=== PATIENT | female | born 1940 | race Caucasian/White ===

== ENCOUNTER 2019-01-18 10:56 | Inpatient (IN) | payer MEDICARE ==
[2019-01-18] MEDS ORDERED: Ondansetron PF 4 MG/2 ML Vial ONE (11:45)
[2019-01-18] MEDS ORDERED: Pantoprazole 40 MG VIAL ONE (11:45)
[2019-01-18 12:09] LABS: #Basophils 0.1 thou/uL (0.0-0.2); #Eosinphils 0.2 thou/uL (0.0-0.7); #Lymphocytes 1.2 thou/uL (1.20-3.40); #Monocytes 0.4 thou/uL (0.11-0.59); #Neutrophils 6.7 thou/uL (1.40-6.50); %Basophils 0.9 % (0.0-1.0); %Eosinophils 2.1 % (0.0-10.0); %Lymphocytes 13.5 % (21.0-51.0); %Monocytes 4.7 % (0.0-10.0); %Neutrophils 78.9 % (42.0-75.0); Mean Corpuscular HGB CONC 32.9 g/dL (32.0-36.0); Mean Corpuscular Volume 94.1 fL (78.0-98.0); Mean Platelet Volume 8.2 fL (7.4-10.4); Platelet Count 328 thou/uL (130-400); RBC Distribution Width 14.3 % (11.5-14.5); Red Blood Cell (RBC) Count 2.57 mill/uL (4.20-5.40); White Blood Cell (WBC) Count 8.6 thou/uL (4.8-10.8)
[2019-01-18 12:26] LABS: ALT (SGPT) 12 U/L (8-55); AST (SGOT) 12 U/L (5-34); Albumin 4.3 g/dL (3.4-4.8); Alkaline Phosphatase 102 U/L (40-150); Anion Gap 15 mmol/L (10-20); BUN (Urea Nitrogen) 48 mg/dL (9.8-20.1); Bilirubin, Total 0.4 mg/dL (0.2-1.2); Calc. Creatinine Clearance 0 mL/min (70-130); Calcium 11.2 mg/dL (7.8-10.44); Carbon Dioxide 24 mmol/L (23-31); Chloride 103 mmol/L (98-107); Estimated GFR-MDRD 29; Globulin 2.7 g/dL (2.4-3.5); Glucose 154 mg/dL (83-110); Potassium 4.3 mmol/L (3.5-5.1); Sodium 138 mmol/L (136-145)
--- NOTE | 2019-01-18 14:11 | CT ---
CT ABDOMEN AND PELVIS WITHOUT CONTRAST: HISTORY: Pain. COMPARISON: None. FINDINGS: There is mild scarring in the lung bases. No pericardial effusion. Gallbladder sludge. Aortic cont our is nonaneurysmal. Moderate diverticular disease of the sigmoid colon without active current inflammation. The kidneys are small. There is no nephroureterolithiasis or hydroureteronephrosis. No secondary ev idence of a recently passed stone. Mild pancreatic atrophy. Noncontrast evaluation of the spleen and liver are unremarkable. Moderate facet arthropathy, lower lumbar spine. IMPRESSION: 1. No nephroureterolithiasis or hydroureteronephrosis. No secondary evidence of a recently passed s tone. 2. No acute inflammatory process within the abdomen or pelvis. POS: CET
[2019-01-18] MEDS ORDERED: Bisacodyl 10 MG SUPP PR PRN (15:24)
[2019-01-18] MEDS ORDERED: Calcium Carbonate 500 MG ChewTAB PO PRN (15:24)
[2019-01-18] MEDS ORDERED: Acetaminophen 325 MG TAB PO PRN (15:24)
[2019-01-18] MEDS ORDERED: Dextrose 5 % And 0.9 % NaCl 1,000 ML IV SCH (16:00)
--- NOTE | 2019-01-18 16:31 | HP ---
CHIEF COMPLAINT: Abdominal pain with dark stool. HISTORY OF PRESENT ILLNESS: The patient is an 78-year-old female, with chronic atrial fibrillation, on anticoagulation with Xarelto, presented to the emergency room with above complaints. Over the last 3 days, the patient has nausea with intermittent vomiting. She also has generalized abdominal discomfort, which is cramping in nature. At times, the pain gets constant. Since last 2 days, she developed dark tarry stool. She had small amount of reddish tinge to her vomitus. She is unsure whether it was blood. No weight loss reported. She had EGD, colonoscopy more than 5 years ago at [facility]. She denies any NSAID use. No fever or chills reported. No chest pain , shortness of breath, palpitations, or syncope reported. She had mild lightheadedness. PAST MEDICAL HISTORY: 1. Chronic atrial fibrillation, on anticoagulation. 2. History of peptic ulcer disease. 3. Left breast cancer, status post mastectomy. 4. Hypothyroidism. 5. Former smoker. 6. Chronic systolic and diastolic heart failure with recent hospitalization for volume overload at [facility]. EF recently was 45-50% 7. Moderate Mitral regurgitation. PAST SURGICAL HISTORY: 1. EGD, colonoscopy. 2. Cardiac valve repair, details unavailable. 3. Left hip surgery. ALLERGIES: THE PATIENT IS ALLERGIC TO VALIUM. CURRENT HOME MEDICATIONS: Family to bring accurate list of medications. She is able to name some of them that include; 1. Amiodarone. 2. Xarelto. 3. Levothyroxine. 4. Lasix. 5. Aspirin. 6. Isosorbide mononitrate. 7. Losartan. 8. Metoprolol tartrate. 9. Protonix. 10. Thiamine. 11. Effexor. 12. Zinc. SOCIAL HISTORY: The patient is a former smoker. Denies current use of alcohol or drug use. She lives in [place]. She is retired and has good family support. She makes her own decision with the help of her family. She is full code. FAMILY HISTORY: Father with hypertension and malignancy. Mother had heart disease and hypertension. Diabetes and hypertension run in her family. REVIEW OF SYSTEMS: All other review of systems was reviewed and was found negative. PHYSICAL EXAMINATION: VITAL SIGNS: Temperature 98.1, respirations of 18, pulse rate of 120, blood pressure 123/82, with O2 saturations 99% on room air. GENERAL: An 78-year-old female, in no apparent distress. Continues to have intermittent abdominal cramping. HEENT: Head, atraumatic and normocephalic. Sclerae are anicteric. Moist mucous membranes. No oral lesion. Conjunctival pallor noted. NECK: Supple. No JVD appreciated. No carotid bruit. LUNGS: Clear to auscultation bilaterally. No wheezing, rales, or rhonchi. HEART: S1 and S2 present, tachycardic. No heaves or pulsation. ABDOMEN: Soft. Bowel sounds present. Mild generalized tenderness. No rebound or guarding. No costovertebral angle tenderness. PSYCHIATRIC: Alert, awake, and oriented x3. NEUROLOGIC: Grossly nonfocal. Moves all 4 extremities. SKIN: Warm and dry. LYMPH NODES: No palpable lymph nodes in the neck. PERIPHERAL VASCULAR: Radial pulse is palpable bilaterally. MUSCULOSKELETAL: No joint swelling or tenderness. LABORATORY FINDINGS: WBC 8.6, with hemoglobin 8.0, hematocrit 24.2, platelets 328. Chemistry showed sodium 138, potassium 4.3, chloride 103, bicarb 24, BUN 48, creatinine 1.7, glucose of 154, calcium 11.2. CT scan of the abdomen and pelvis by my review was negative for acute findings. EKG by my review showed sinus tachycardia with left axis deviation and left bundle-branch block. IMPRESSION: 1. Acute gastrointestinal bleeding. 2. Acute blood loss anemia. 3. Chronic atrial fibrillation, on anticoagulation. 4. Acute kidney injury, on chronic kidney disease, stage 3. 5. Chronic systolic and diastolic heart failure with recent hospitalization at [facility]. 6. History of peptic ulcer disease. 7. History of breast cancer. 8. Coronary artery disease. 9. Hypothyroidism. 10. Hypertension. PLAN: The patient will be monitored on the telemetry unit. Continue Protonix drip. Gastroenterology consultation. N.p.o. except for ice chips. We will monitor closely for volume overload. Gentle IV hydration. Monitor hemoglobin and hematocrit closely. Check iron profile. Plan of care was discussed with the patient in detail. She stated understanding. Job ID: [id number] [facility]
[2019-01-18 17:56] LABS: Iron 93 ug/dL (50-170); Iron Binding Capacity, Total 411 mcg/dL (265-497)
[2019-01-18 18:18] VITALS: BMI 27.8
[2019-01-18] MEDS ORDERED: Prevnar 13-Val Conj/PF 0.5 ML SYRINGE IM ONE (18:45)
[2019-01-18 19:36] LABS: Hemoglobin 7.8 g/dL (12.0-16.0)
[2019-01-18] MEDS ORDERED: Metoprolol Tartrate 25 MG TAB PO SCH ×2 (20:00→22:00)
[2019-01-18] MEDS: Dextrose 5 % And 0.9 % NaCl 1,000 ML IV SCH (20:30)
[2019-01-18 22:29] LABS: Hemoglobin 8.1 g/dL (12.0-16.0)
[2019-01-18] MEDS: Metoprolol Tartrate 25 MG TAB PO SCH (22:42)
--- NOTE | 2019-01-18 22:42 | CON ---
DATE OF CONSULTATION: REASON FOR CONSULT: Reported melena and hematemesis. HISTORY OF PRESENT ILLNESS: Ms. Snowden is an 78-year-old female who receives her care predominantly in [place] where she had been hospitalized. She reports 3 times and most recently a week ago in [place]. The two times before that were in [facility]. She states these for her heart failure. She presented to the Emergency Room here as she was still feeling bad and did not find much had been done for. She had an episode of hematemesis. The day before yesterday, it was maroon; however, she is not sure if that was tomatoes or not, then she maybe had some coffee-grounds emesis, had some black stools. She states she never had any red stool or maroon stool. Her last episode of emesis was yesterday and her last bowel movement was this morning when she came to the hospital. She has had no bowel movements or emesis here. She notes that she had been having stomach pain in the mid abdomen for several weeks, but when she went to the outside hospital, she was told the problem was fluid around her heart. She does note that she may have had a CAT scan, they told her stomach was okay. She was taking Aleve quite a bit, but a few months ago stopped that as her kidney doctor told, it was bad for her kidneys. She was placed on some reflux medicine. She does not know the name. When she was at the other hospital, she took those for about 3 days, then she did not feel well, she went ahead and came in. She does have a history of atrial fibrillation for which she has been on Xarelto and she has been off that for today and yesterday. In the emergency room, she was tachycardic, received a liter of fluid. She had a pulse of 120, blood pressure 123/82. She was given Protonix IV. She has been admitted to the floor now. She denies any dysphagia, odynophagia, hematochezia. She reports she had a colonoscopy 5 years ago, which was notable for few polyps. She notes she had a remote history of ulcers about 5-7 years ago in [place]. She also notes that she was found to have some type of spot on her pancreas and is supposed to have a biopsy by plater printed circuit board panels and this will be done in [place] area in January on that. She does suffer with shortness of breath and dyspnea on exertion. She denies any palpitations and she is not aware that her heart is going fast. She denies any fever or chills, dysuria, frequency, urgency, cough. She denies rashes, myalgias, or arthralgias. She has overt spontaneous bleeds in the past. PAST MEDICAL HISTORY: Remote history of gastric ulcer, history of left breast cancer, mastectomy in 2000, AFib, hypothyroidism, hypertension. She reports she is diabetic and does not take shots. PAST SURGICAL HISTORY: Notable for the breast resection and a left hip replacement, open heart surgery for a valve and previous hysterectomy. SOCIAL HISTORY: The patient used to smoke cigarettes, but not now. She does not drink. She does not use drugs. She is living with her son since she has been in the hospital, her son lives here. ALLERGIES: VALIUM. MEDICATIONS: 1. Lasix. 2. Levothyroxine. 3. Xarelto. 4. Amlodipine. 5. Aspirin. 6. Isosorbide mononitrate. 7. Linzess. 8. Losartan. 9. Metoprolol. 10. Pantoprazole. 11. Thiamine. 12. Venlafaxine. 13. Zinc sulfate. PRESENT MEDICATIONS: 1. Protonix drip every 8 hours. 2. D5 50. 3. Calcium. As far as medicines at home, she states she does not have any of those today and . PHYSICAL EXAMINATION: VITAL SIGNS: Presently, pulse 124, sinus blood pressure 120/76, temperature is 98.1. GENERAL: She is resting comfortably, but somewhat pale. LUNGS: Clear. HEART: Sinus tachycardia with occasional PVC. HEENT: Conjunctiva is pale. Sclera is clear. There is no JVD. ABDOMEN: Soft and nontender. There is no rebound. There is no guarding. EXTREMITIES: No clubbing, cyanosis, or edema. If. LABORATORY DATA: 1. Hemoglobin is 8 at 11:56 a.m. She received 1 unit of blood at this time. Her hemoglobin was 9.1 on 03/29/2017. She is not sure what her recent blood counts have been. White count is 8.6, platelet count is 238. Sodium 138, potassium 4.3, BUN and creatinine are 48 and 1.7, calcium is 11.2, glucose is 154. Bilirubin is 0.4. AST and ALT are 12 and 12, alkaline phosphatase 102. ASSESSMENT: 1. Sinus tachycardia, likely related to gastrointestinal bleed, possibly related to her not receiving her beta esther medicines today. 2. No signs of hypertension. 3. History of some possible melena recently and hematemesis, had coffee-grounds emesis couple days ago and none today. She has received 1 unit of blood for hemoglobin of 8. 4. Hypercalcemia. It is unclear if this is related to dehydration or possibly underlying malignancy. She has a remote history of breast cancer. 5. Elevated BUN and creatinine, so this may be related to hemeprotein being reabsorbed in the small bowel. Some of it may be a prerenal state. RECOMMENDATIONS: Agree with IV Protonix. Plan for endoscopy tomorrow. We will resuscitate further. We will defer to primary service whether to start her back on her medicines, but I think could be acceptable, if they do so and may help her tachycardia somewhat. Serial H and H will be recommended. If there are any signs of acute bleeding, she will need to be further transfused and resuscitated. I have talked her about endoscopy tomorrow and she is agreeable that. Job ID: [id number]
[2019-01-19] MEDS: Pantoprazole 80 MG in Sodium Chloride 0.9% 100 ML IVP SCH ×2 (00:24→12:02)
[2019-01-19 05:31] LABS: #Basophils 0.1 thou/uL (0.0-0.2); #Eosinphils 0.3 thou/uL (0.0-0.7); #Lymphocytes 1.7 thou/uL (1.20-3.40); #Monocytes 0.5 thou/uL (0.11-0.59); #Neutrophils 4.4 thou/uL (1.40-6.50); %Basophils 0.8 % (0.0-1.0); %Eosinophils 3.9 % (0.0-10.0); %Lymphocytes 24.4 % (21.0-51.0); %Monocytes 7.6 % (0.0-10.0); %Neutrophils 63.3 % (42.0-75.0); Hemoglobin 7.3 g/dL (12.0-16.0); Mean Corpuscular Hemoglobin 32.9 pg (27.0-31.0); Mean Corpuscular Volume 96.7 fL (78.0-98.0); Mean Platelet Volume 8.2 fL (7.4-10.4); Platelet Count 239 thou/uL (130-400); RBC Distribution Width 14.7 % (11.5-14.5); Red Blood Cell (RBC) Count 2.23 mill/uL (4.20-5.40); White Blood Cell (WBC) Count 6.9 thou/uL (4.8-10.8)
[2019-01-19] MEDS: Metoprolol Tartrate 25 MG TAB PO SCH ×3 (05:38→21:53)
[2019-01-19 05:50] LABS: ALT (SGPT) 10 U/L (8-55); AST (SGOT) 11 U/L (5-34); Albumin 3.5 g/dL (3.4-4.8); Alkaline Phosphatase 78 U/L (40-150); Anion Gap 12 mmol/L (10-20); BUN (Urea Nitrogen) 39 mg/dL (9.8-20.1); Bilirubin, Total 0.5 mg/dL (0.2-1.2); Calc. Creatinine Clearance 45 mL/min (70-130); Calcium 9.9 mg/dL (7.8-10.44); Carbon Dioxide 21 mmol/L (23-31); Chloride 109 mmol/L (98-107); Estimated GFR-MDRD 36; Globulin 2.5 g/dL (2.4-3.5); Glucose 129 mg/dL (83-110); Magnesium 2.2 mg/dL (1.6-2.6); Sodium 138 mmol/L (136-145)
[2019-01-19] MEDS ORDERED: Metoprolol Tartrate 25 MG TAB PO SCH (09:00)
[2019-01-19] MEDS: Amiodarone 200 MG TAB PO SCH (12:01)
[2019-01-19] MEDS: Venlafaxine HCl XR 150 MG CAP PO SCH (12:01)
[2019-01-19] MEDS: Zinc Sulfate 220 MG CAP PO SCH (12:02)
[2019-01-19] MEDS: Dextrose 5 % And 0.9 % NaCl 1,000 ML IV SCH (12:02)
[2019-01-19] MEDS: Thiamine 100 MG TAB PO SCH (12:02)
--- NOTE | 2019-01-19 13:53 | OP ---
DATE OF PROCEDURE: 01/19/2019 PROCEDURES PERFORMED: Esophagogastroduodenoscopy. PREPROCEDURE DIAGNOSES: 1. History of melena, anemia, prior history of ulcers. 2. She had been on chronic anticoagulation until 3 days ago with Xarelto. POSTPROCEDURE DIAGNOSES: Normal esophagus, normal stomach, normal duodenum. No evidence of Nadine-Gramajo tear. No bleeding sites identified. No evidence of Dieulafoy like lesions in the stomach. No ulcers or erosions. RECOMMENDATIONS: In light of the history of the melena and coffee-ground like stools and her significant anemia, we will proceed with colonoscopy tomorrow. ANESTHESIA: TIVA. PROCEDURE IN DETAIL: The patient was informed of the risks, benefits, and possible complications of endoscopy including perforation, reaction to medication, and aspiration, and informed consent was obtained. The patient was brought to endoscopy suite, where she was sedated in gradual fashion. Once she was comfortable, a bite block placed inside the orifices. The endoscope was advanced through the esophagus, stomach, and second and third portion of the duodenum and slowly removed. There was good visualization of the mucosa. The esophagus was normal. No evidence of varices or Nadine-Gramajo tear, or esophagitis. Retroflexed views revealed normal GE junction from below. There was no evidence of ulcers in the stomach incisura. Close evaluation of mucosa showed no evidence of AVMs or Dieulafoy like lesions. The duodenum was entered and found to be normal to the second and third portions. No evidence of ulcers or erosions. The scope was removed. The patient tolerated the procedure well. There were no complications. Job ID: [id number]
[2019-01-19] MEDS ORDERED: Lidocaine 1% PF 5 ML VIAL ONE (16:32)
[2019-01-19] MEDS ORDERED: PROPOFOL 200 MG/20 ML VIAL ONE (16:32)
[2019-01-19] MEDS ORDERED: PHENYLEPHRINE-NS 100 MCG/ML 10 ML SYRINGE ONE (16:32)
--- NOTE | 2019-01-19 17:58 | PRG ---
DATE OF SERVICE: 01/19/2019 SUBJECTIVE: An 78-year-old female with chronic atrial fibrillation on anticoagulation, presented yesterday with gastrointestinal bleeding. She did not have any new episodes of melena or hematochezia. No nausea or vomiting reported. She underwent EGD earlier today that was essentially normal. No abdominal pain, chest pain, or lightheadedness reported. REVIEW OF SYSTEMS: As discussed above. CURRENT MEDICATIONS: Reviewed. OBJECTIVE: VITAL SIGNS: Temperature 97.9, respiration of 16, pulse rate of 80, blood pressure 125/62, O2 saturation 96% on room air. Intake of 865, output 300. Telemetry monitoring showed atrial fibrillation, rate controlled. GENERAL: An 78-year-old female, in no apparent distress. HEART: S1 and S2 present. Irregularly irregular. No rubs or gallops appreciated. LUNGS: Clear to auscultation bilaterally. No wheezing, rales, or rhonchi. ABDOMEN: Soft. No rebound or guarding. No costovertebral angle tenderness. Bowel sounds present. EXTREMITIES: No edema or calf tenderness. NEUROLOGIC: Grossly nonfocal. PSYCHIATRY: Normal affect. The patient is alert, awake, and oriented x3. LABORATORY FINDINGS: Hemoglobin 7.3 with hematocrit 21.5. Creatinine 1.4 with BUN of 39. Troponin negative. IMPRESSION: 1. Gastrointestinal bleeding. 2. Acute blood loss anemia. 3. Chronic atrial fibrillation, anticoagulation on hold. 4. Acute kidney injury on chronic kidney disease stage 3, improving. 5. Chronic systolic and diastolic heart failure with recent exacerbation at [facility]. 6. History of peptic ulcer disease with normal EGD this admission. 7. History of breast cancer. 8. Coronary artery disease. 9. Hypothyroidism. 10. Hypertension. PLAN: We will discontinue Protonix drip. Start oral PPIs. We will continue Lopressor at 25 mg every 8 hourly due to blood pressure in the low normal range. The patient will undergo colonoscopy tomorrow. We will continue other home medications including amiodarone, levothyroxine, and Effexor. We will recheck H and H later today. We will repeat basic metabolic profile in a.m. Plan was discussed with the patient, she stated understanding. Job ID: [id number]
[2019-01-19] MEDS ORDERED: GoLYTELY 4,000 ml Bottle PO SCH (18:00)
[2019-01-19] MEDS ORDERED: Metoprolol Tartrate 50 MG TAB PO SCH (21:00)
[2019-01-20] MEDS: Metoprolol Tartrate 25 MG TAB PO SCH ×3 (05:18→22:14)
[2019-01-20] MEDS: Dextrose 5 % And 0.9 % NaCl 1,000 ML IV SCH ×3 (05:18→19:34)
[2019-01-20] MEDS: Levothyroxine 150 MCG TAB PO SCH (05:18)
[2019-01-20 05:26] LABS: Hemoglobin 8.6 g/dL (12.0-16.0)
[2019-01-20 05:37] LABS: Anion Gap 13 mmol/L (10-20); BUN (Urea Nitrogen) 26 mg/dL (9.8-20.1); Calc. Creatinine Clearance 47 mL/min (70-130); Calcium 10.4 mg/dL (7.8-10.44); Carbon Dioxide 24 mmol/L (23-31); Chloride 107 mmol/L (98-107); Estimated GFR-MDRD 38; Glucose 117 mg/dL (83-110); Potassium 4.2 mmol/L (3.5-5.1); Sodium 140 mmol/L (136-145)
[2019-01-20] MEDS: Ondansetron PF 4 MG/2 ML Vial SLOW IVP PRN (05:55)
[2019-01-20] MEDS: Zinc Sulfate 220 MG CAP PO SCH (08:16)
[2019-01-20] MEDS: Amiodarone 200 MG TAB PO SCH (08:16)
[2019-01-20] MEDS: Venlafaxine HCl XR 150 MG CAP PO SCH (08:16)
[2019-01-20] MEDS: Thiamine 100 MG TAB PO SCH (08:16)
--- NOTE | 2019-01-20 11:20 | EKG ---
Test Reason : Blood Pressure : / mmHG Vent. Rate : 121 BPM Atrial Rate : 125 BPM P-R Int : 120 ms QRS Dur : 154 ms QT Int : 392 ms P-R-T Axes : 000 -43 130 degrees QTc Int : 556 ms Sinus tachycardia Left axis deviation Left bundle branch block Abnormal ECG Confirmed by VIOLETTE LYON DO ([id number]), tape editor LEONARD CHAUDHRY ([id number]) on 01/20/2019 11:20:08 AM Referred By: SONALI Confirmed By:VIOLETTE LYON DO
--- NOTE | 2019-01-20 15:57 | PRG ---
DATE OF SERVICE: 01/20/2019 SUBJECTIVE: Ms. Snowden was unable to drink a bowel prep yesterday for colonoscopy today. She is trying to drink that today. She has had no bleeding, nausea, or vomiting. She is drinking the prep slowly. She is without complaints. OBJECTIVE: VITAL SIGNS: Pulse is 87, temperature 98.2, respirations 18, and blood pressure 107/71. ABDOMEN: Soft and nontender. LABORATORY DATA: White count 8.6, 9.2 yesterday; hemoglobin 9.5; and platelet count 195. Sodium 140, potassium 4.3, and BUN creatinine are 26 and 1.33. ASSESSMENT: Reported gastrointestinal bleed on admission. There was question of hematemesis, although it was just a red material when she would eat tomatoes. EGD was negative. PLAN: For colonoscopy, she was not able to drink a bowel prep yesterday for today, she is trying to drink that today for tomorrow. There are no signs of acute bleeding at this time. I have explained the procedure to the patient and she understands and wished to proceed. Job ID: [id number]
--- NOTE | 2019-01-20 21:24 | PDOC.PN ---
- Subjective Encounter Start Date: 01/20/19 Encounter Start Time: 09:30 Patient seen and examined for GI bleed. No new episodes of GI bleeding. No CP/ syncope. No new complaints. No overnight events - Objective Resuscitation Status - Order Detail: 01/18/19 15:24 Resuscitation Status Routine Resuscitation Status: FULL: Full Resuscitation MAR Reviewed: Yes Vital Signs & Weight: Vital Signs (12 hours) Temp Pulse Resp BP BP Pulse Ox 01/20/19 15:31 98.0 F 95 18 106/60 99 01/20/19 11:36 98.2 F 87 18 107/71 94 L Weight Weight 194 lb 4.8 oz Most Recent Monitor Data NIBP 129/76 I&O: 01/19/19 01/20/19 01/21/19 06:59 06:59 06:59 Intake Total 864.5 3091 1250 Output Total 300 500 600 Balance 564.5 2591 650 Result Diagrams: 01/21/19 04:01 01/21/19 04:01 EKG Reviewed by me: Yes (Tele Afib) Phys Exam - Physical Examination Constitutional: NAD Respiratory: no wheezing, no rhonchi Cardiovascular: no rub, irregular Gastrointestinal: soft, non-tender, no distention, positive bowel sounds Musculoskeletal: no edema Neurological: non-focal, moves all 4 limbs Dx/Plan - Plan DVT proph w/SCDs IMPRESSION: 1. Gastrointestinal bleeding. s/p EGD 2. Acute blood loss anemia. 3. Chronic atrial fibrillation, anticoagulation on hold. 4. Acute kidney injury on chronic kidney disease stage 3, improving. 5. Chronic systolic and diastolic heart failure with recent exacerbation at [facility]. 6. History of peptic ulcer disease with normal EGD this admission. 7. History of breast cancer. 8. Coronary artery disease. 9. Hypothyroidism. 10. Hypertension. PLAN: Cont IV fluids Cont PO Metoprolol 25 mg Q8hr Change PPI to PO Patient unable to complete the colon prep - Colonoscopy rescheduled for tomorrow AM labs Transfuse if Hb <7 Review of Systems - Review of Systems Respiratory: negative: Cough, Dry, Shortness of Breath, Hemoptysis, SOB with Excertion, Pleuritic Pain, Sputum, Wheezing Cardiovascular: negative: chest pain, palpitations, orthopnea, paroxysmal nocturnal dyspnea, edema, light headedness, other Gastrointestinal: Nausea. negative: Vomiting, Abdominal Pain, Diarrhea, Constipation, Melena, Hematochezia, Other - Medications/Allergies Allergies/Adverse Reactions: Allergies Allergy/AdvReac Type Severity Reaction Status Date / Time diazepam [From Valium] Allergy Verified 01/18/19 13:38 Medications: Current Medications Acetaminophen (Tylenol) 650 mg PO Q4H PRN PRN Reason: Headache/Fever/Mild Pain (1-3) Amiodarone HCl (Cordarone) 200 mg PO DAILY [facility] Last Admin: 01/20/19 08:16 Dose: 200 mg Bisacodyl (Dulcolax) 10 mg FL DAILYPRN PRN PRN Reason: Constipation Calcium Carbonate (Tums) 1,000 mg PO Q4H PRN PRN Reason: Heartburn or Indigestion Dextrose/Sodium Chloride (D5 0.9% Ns) 1,000 mls @ 75 mls/hr IV .[id number] [facility] Last Admin: 01/20/19 19:34 Dose: 1,000 mls Levothyroxine Sodium (Synthroid) 150 mcg PO 0600 [facility] Last Admin: 01/20/19 05:18 Dose: 150 mcg Metoprolol Tartrate (Lopressor) 25 mg PO Q8HR [facility] Last Admin: 01/20/19 14:03 Dose: 25 mg Ondansetron HCl (Zofran) 4 mg SLOW IVP Q4H PRN PRN Reason: Nausea/Vomiting Last Admin: 01/20/19 05:55 Dose: 4 mg Pantoprazole Sodium (Protonix) 40 mg PO DAILY [facility] Last Admin: 01/20/19 08:16 Dose: 40 mg Sodium Chloride (Flush - Normal Saline) 10 ml IVF PRN PRN PRN Reason: Saline Flush Last Admin: 01/20/19 08:17 Dose: 10 ml Sodium Chloride (Flush - Normal Saline) 10 ml IVF PRN PRN PRN Reason: Saline Flush Sodium Chloride (Flush - Normal Saline) 10 ml IVF PRN PRN PRN Reason: Saline Flush Thiamine HCl (Thiamine) 100 mg PO DAILY [facility] Last Admin: 01/20/19 08:16 Dose: 100 mg Venlafaxine HCl (Effexor Xr) 150 mg PO DAILY [facility] Last Admin: 01/20/19 08:16 Dose: 150 mg Zinc Sulfate (Zinc Sulfate) 220 mg PO DAILY [facility] Last Admin: 01/20/19 08:16 Dose: 220 mg
[2019-01-21 04:16] LABS: Hemoglobin 8.3 g/dL (12.0-16.0); Platelet Count 224 thou/uL (130-400)
[2019-01-21 04:28] LABS: Anion Gap 16 mmol/L (10-20); BUN (Urea Nitrogen) 19 mg/dL (9.8-20.1); Calc. Creatinine Clearance 41 mL/min (70-130); Calcium 10.1 mg/dL (7.8-10.44); Carbon Dioxide 18 mmol/L (23-31); Chloride 106 mmol/L (98-107); Estimated GFR-MDRD 33; Glucose 134 mg/dL (83-110); Potassium 3.9 mmol/L (3.5-5.1); Sodium 136 mmol/L (136-145)
[2019-01-21] MEDS: Levothyroxine 150 MCG TAB PO SCH (05:00)
[2019-01-21] MEDS: Metoprolol Tartrate 25 MG TAB PO SCH ×3 (05:01→21:21)
[2019-01-21] MEDS: Amiodarone 200 MG TAB PO SCH (08:52)
[2019-01-21] MEDS: Zinc Sulfate 220 MG CAP PO SCH (08:52)
[2019-01-21] MEDS: Thiamine 100 MG TAB PO SCH (08:52)
[2019-01-21] MEDS: Venlafaxine HCl XR 150 MG CAP PO SCH (08:52)
[2019-01-21] MEDS ORDERED: Promethazine HCl 25 MG/ML VIAL IM PRN (13:16)
[2019-01-21] MEDS ORDERED: Meperidine HCl/PF 25 MG/ML VIAL SLOW IVP PRN (13:16)
[2019-01-21] MEDS ORDERED: Morphine Sulfate 2 MG/ML SYRINGE SLOW IVP PRN (13:16)
[2019-01-21] MEDS ORDERED: Ondansetron HCl/PF 4 MG/2 ML Vial IVP PRN (13:16)
[2019-01-21] MEDS ORDERED: Promethazine HCl 25 MG/ML VIAL SLOW IVP PRN (13:16)
[2019-01-21] MEDS ORDERED: PROPOFOL 200 MG/20 ML VIAL ONE (13:52)
[2019-01-21] MEDS ORDERED: Lidocaine 1% PF 5 ML VIAL ONE (13:52)
[2019-01-21] MEDS: Dextrose 5 % And 0.9 % NaCl 1,000 ML IV SCH (13:57)
--- NOTE | 2019-01-21 19:47 | OP ---
DATE OF PROCEDURE: 01/21/2019 PROCEDURE PERFORMED: Colonoscopy. PREPROCEDURE DIAGNOSES: 1. History of chronic abdominal discomfort and multiple admissions related to her heart failure and respiratory issues recently. 2. Reported history of black stools and even some hematemesis prior to admission. 3. Normal esophagogastroduodenoscopy surprisingly on 01/19 with no stigmata of bleeding seen and no old blood seen. POSTPROCEDURE DIAGNOSIS: Diverticulosis coli. No active bleeding. No signs of colitis. RECOMMENDATIONS: 1. Advance diet. Monitor H and H. if there are signs of overt bleeding, consider tagged bleeding scan. 2. Consider restarting Xarelto in 3 to 4 days depending on course. ANESTHESIA: TIVA. DESCRIPTION OF PROCEDURE: The patient was informed of the risks, benefits, and possible complications of endoscopy including perforation, reaction to medication, and aspiration, informed consent was obtained. The patient was brought to the endoscopy suite, where she was sedated in gradual fashion. When she was comfortable, rectal examination was performed, which revealed no blood or abnormal content of the stool. The endoscope was advanced into the anal canal through the colon. The cecum was identified by ileocecal valve and appendiceal orifice. The ileum was entered and found to be normal. The scope was then slowly removed with good visualization of mucosa. There was diverticulosis coli throughout the colon, but no stigmata of recent bleeding. Retroflexed views were normal. The scope was removed. The patient was brought to recovery room in stable condition. Job ID: [id number]
--- NOTE | 2019-01-21 23:36 | PDOC.PN ---
- Subjective Encounter Start Date: 01/21/19 Encounter Start Time: 10:45 Patient seen and examined for GI bleeding. No new episodes of bleeding. No hematemesis/diarrhea/N. No new complaints. No overnight events - Objective Resuscitation Status - Order Detail: 01/18/19 15:24 Resuscitation Status Routine Resuscitation Status: FULL: Full Resuscitation MAR Reviewed: Yes Vital Signs & Weight: Vital Signs (12 hours) Temp Pulse Resp BP BP Pulse Ox 01/21/19 16:05 98.3 F 80 18 107/59 L 98 01/21/19 13:50 97.9 F 107 H 18 123/87 97 Weight Weight 194 lb 4.8 oz Most Recent Monitor Data NIBP 129/76 I&O: 01/20/19 01/21/19 01/22/19 06:59 06:59 06:59 Intake Total 3091 3650 400 Output Total 500 608 680 Balance 2591 3042 -280 Result Diagrams: 01/22/19 04:43 01/22/19 04:43 EKG Reviewed by me: Yes (Tele SR) Dx/Plan - Plan IMPRESSION: 1. Gastrointestinal bleeding. s/p EGD 2. Acute blood loss anemia. 3. Chronic atrial fibrillation, anticoagulation on hold. 4. Acute kidney injury on chronic kidney disease stage 3, improving. 5. Chronic systolic and diastolic heart failure with recent exacerbation at [facility]. 6. History of peptic ulcer disease with normal EGD this admission. 7. History of breast cancer. 8. Coronary artery disease. 9. Hypothyroidism. 10. Hypertension. PLAN: Cont PO Metoprolol 25 mg Q8hr Cont levothyroxine/Effexor Cont PPI Colonoscopy today HH in AM Review of Systems - Review of Systems Respiratory: negative: Cough, Dry, Shortness of Breath, Hemoptysis, SOB with Excertion, Pleuritic Pain, Sputum, Wheezing Cardiovascular: negative: chest pain, palpitations, orthopnea, paroxysmal nocturnal dyspnea, edema, light headedness, other Gastrointestinal: negative: Nausea, Vomiting, Abdominal Pain, Diarrhea, Constipation, Melena, Hematochezia, Other - Medications/Allergies Allergies/Adverse Reactions: Allergies Allergy/AdvReac Type Severity Reaction Status Date / Time diazepam [From Valium] Allergy Verified 01/18/19 13:38 Medications: Current Medications Acetaminophen (Tylenol) 650 mg PO Q4H PRN PRN Reason: Headache/Fever/Mild Pain (1-3) Last Admin: 01/21/19 21:30 Dose: 650 mg Amiodarone HCl (Cordarone) 200 mg PO DAILY [facility] Last Admin: 01/21/19 08:52 Dose: 200 mg Bisacodyl (Dulcolax) 10 mg IN DAILYPRN PRN PRN Reason: Constipation Calcium Carbonate (Tums) 1,000 mg PO Q4H PRN PRN Reason: Heartburn or Indigestion Dextrose/Sodium Chloride (D5 0.9% Ns) 1,000 mls @ 75 mls/hr IV .[id number] [facility] Last Admin: 01/21/19 13:57 Dose: 1,000 mls Levothyroxine Sodium (Synthroid) 150 mcg PO 0600 [facility] Last Admin: 01/21/19 05:00 Dose: 150 mcg Metoprolol Tartrate (Lopressor) 25 mg PO Q8HR [facility] Last Admin: 01/21/19 21:21 Dose: 25 mg Ondansetron HCl (Zofran) 4 mg SLOW IVP Q4H PRN PRN Reason: Nausea/Vomiting Last Admin: 01/20/19 05:55 Dose: 4 mg Pantoprazole Sodium (Protonix) 40 mg PO DAILY [facility] Last Admin: 01/21/19 08:52 Dose: 40 mg Sodium Chloride (Flush - Normal Saline) 10 ml IVF PRN PRN PRN Reason: Saline Flush Last Admin: 01/20/19 08:17 Dose: 10 ml Sodium Chloride (Flush - Normal Saline) 10 ml IVF PRN PRN PRN Reason: Saline Flush Sodium Chloride (Flush - Normal Saline) 10 ml IVF PRN PRN PRN Reason: Saline Flush Thiamine HCl (Thiamine) 100 mg PO DAILY [facility] Last Admin: 01/21/19 08:52 Dose: 100 mg Venlafaxine HCl (Effexor Xr) 150 mg PO DAILY [facility] Last Admin: 01/21/19 08:52 Dose: 150 mg Zinc Sulfate (Zinc Sulfate) 220 mg PO DAILY [facility] Last Admin: 01/21/19 08:52 Dose: 220 mg
[2019-01-22] MEDS: Dextrose 5 % And 0.9 % NaCl 1,000 ML IV SCH (04:58)
[2019-01-22] MEDS: Metoprolol Tartrate 25 MG TAB PO SCH ×3 (05:05→22:21)
[2019-01-22] MEDS: Levothyroxine 150 MCG TAB PO SCH (05:05)
[2019-01-22 05:34] LABS: Hemoglobin 7.7 g/dL (12.0-16.0); Platelet Count 247 thou/uL (130-400)
[2019-01-22 05:52] LABS: Anion Gap 12 mmol/L (10-20); BUN (Urea Nitrogen) 20 mg/dL (9.8-20.1); Calc. Creatinine Clearance 42 mL/min (70-130); Carbon Dioxide 22 mmol/L (23-31); Chloride 110 mmol/L (98-107); Estimated GFR-MDRD 34; Glucose 129 mg/dL (83-110); Potassium 3.4 mmol/L (3.5-5.1); Sodium 141 mmol/L (136-145)
[2019-01-22] MEDS: Amiodarone 200 MG TAB PO SCH (08:38)
[2019-01-22] MEDS: Zinc Sulfate 220 MG CAP PO SCH (08:38)
[2019-01-22] MEDS: Thiamine 100 MG TAB PO SCH (08:38)
[2019-01-22] MEDS: Venlafaxine HCl XR 150 MG CAP PO SCH (08:38)
[2019-01-22] MEDS ORDERED: Dextrose 5 % And 0.9 % NaCl 1,000 ML IV SCH (08:50)
[2019-01-22] MEDS: Ondansetron PF 4 MG/2 ML Vial SLOW IVP PRN (10:31)
[2019-01-22] MEDS ORDERED: Furosemide 40 MG TAB PO SCH (14:30)
[2019-01-22] MEDS ORDERED: Iron Sucrose Complex 200 MG in Sodium Chloride 0.9% 250 ML 250 ML IVPB SCH (16:00)
[2019-01-22] MEDS: Potassium Chloride 10 MEQ TAB PO SCH (16:52)
[2019-01-22] MEDS ORDERED: Simethicone Chewable 80 MG TAB PO PRN (19:28)
--- NOTE | 2019-01-22 20:03 | PDOC.PN ---
- Subjective Encounter Start Date: 01/22/19 Encounter Start Time: 20:03 Patient seen and examined for GI bleeding. No new melena or hematochezia. No CP. Exertional dyspnea +. No other complaints. No overnight events - Objective Resuscitation Status - Order Detail: 01/18/19 15:24 Resuscitation Status Routine Resuscitation Status: FULL: Full Resuscitation MAR Reviewed: Yes Vital Signs & Weight: Vital Signs (12 hours) Temp Pulse Resp BP BP BP BP 01/22/19 15:44 98.5 F 70 18 134/66 01/22/19 12:30 97.9 F 72 18 142/75 H 01/22/19 08:36 98 F 62 18 126/60 120/61 114/54 L Pulse Ox 01/22/19 15:44 97 01/22/19 12:30 96 01/22/19 08:36 98 Weight Weight 194 lb 4.8 oz Most Recent Monitor Data NIBP 129/76 I&O: 01/21/19 01/22/19 01/23/19 06:59 06:59 06:59 Intake Total 3650 900 760 Output Total 608 680 400 Balance 3042 220 360 Result Diagrams: 01/23/19 06:10 01/23/19 06:10 EKG Reviewed by me: Yes (Tele Afib) Phys Exam - Physical Examination Constitutional: NAD Respiratory: no wheezing, no rhonchi scat rales at bases Cardiovascular: no rub, irregular Gastrointestinal: soft, non-tender, positive bowel sounds Musculoskeletal: no edema Neurological: moves all 4 limbs Dx/Plan - Plan DVT proph w/SCDs IMPRESSION: 1. Gastrointestinal bleeding. s/p EGD/Colonoscopy - ?source 2. Acute blood loss anemia s/p 2 units PRBC 3. Chronic atrial fibrillation, anticoagulation on hold. 4. Acute kidney injury on chronic kidney disease stage 3, improving. 5. Chronic systolic and diastolic heart failure with recent exacerbation at [facility]. 6. History of peptic ulcer disease with normal EGD this admission. 7. History of breast cancer. 8. Coronary artery disease. 9. Hypothyroidism. 10. Hypertension. 11. Hypokalemia PLAN: Start PO Lasix Start IV iron Check CXR/reticulocyte ct/HH in AM Replace Potassium Cont Metoprolol 25 mg Q8hr Cont levothyroxine/Effexor Cont PPI Resume Losartan Transfuse if HH <7 Review of Systems - Review of Systems Respiratory: Dry, SOB with Excertion. negative: Shortness of Breath, Hemoptysis , Pleuritic Pain, Sputum, Wheezing Cardiovascular: negative: chest pain, palpitations, orthopnea, paroxysmal nocturnal dyspnea, edema, light headedness, other Gastrointestinal: negative: Nausea, Vomiting, Abdominal Pain, Diarrhea, Constipation, Melena, Hematochezia, Other - Medications/Allergies Allergies/Adverse Reactions: Allergies Allergy/AdvReac Type Severity Reaction Status Date / Time diazepam [From Valium] Allergy Verified 01/18/19 13:38 Medications: Current Medications Acetaminophen (Tylenol) 650 mg PO Q4H PRN PRN Reason: Headache/Fever/Mild Pain (1-3) Last Admin: 01/21/19 21:30 Dose: 650 mg Amiodarone HCl (Cordarone) 200 mg PO DAILY [facility] Last Admin: 01/22/19 08:38 Dose: 200 mg Bisacodyl (Dulcolax) 10 mg [place] DAILYPRN PRN PRN Reason: Constipation Calcium Carbonate (Tums) 1,000 mg PO Q4H PRN PRN Reason: Heartburn or Indigestion Furosemide (Lasix) 40 mg PO DAILY-[facility] Levothyroxine Sodium (Synthroid) 150 mcg PO 0600 [facility] Last Admin: 01/22/19 05:05 Dose: 150 mcg Losartan Potassium (Cozaar) 50 mg PO DAILY [facility] Metoprolol Tartrate (Lopressor) 25 mg PO Q8HR [facility] Last Admin: 01/22/19 13:40 Dose: 25 mg (Linaclotide [ (Linzess] 145 Mcg)) 145 mcg PO DAILY-[facility] Ondansetron HCl (Zofran) 4 mg SLOW IVP Q4H PRN PRN Reason: Nausea/Vomiting Last Admin: 01/22/19 10:31 Dose: 4 mg Pantoprazole Sodium (Protonix) 40 mg PO DAILY [facility] Last Admin: 01/22/19 08:38 Dose: 40 mg Potassium Chloride (Klor-Con 10) 20 meq PO BID-[facility] Last Admin: 01/22/19 16:52 Dose: 20 meq Simethicone (Mylicon Chewable) 80 mg PO PCHS PRN PRN Reason: Gas Pain Sodium Chloride (Flush - Normal Saline) 10 ml IVF PRN PRN PRN Reason: Saline Flush Last Admin: 01/20/19 08:17 Dose: 10 ml Sodium Chloride (Flush - Normal Saline) 10 ml IVF PRN PRN PRN Reason: Saline Flush Sodium Chloride (Flush - Normal Saline) 10 ml IVF PRN PRN PRN Reason: Saline Flush Thiamine HCl (Thiamine) 100 mg PO DAILY [facility] Last Admin: 01/22/19 08:38 Dose: 100 mg Tramadol HCl (Ultram) 50 mg PO Q4H PRN PRN Reason: Moderate Pain (4-6) Venlafaxine HCl (Effexor Xr) 150 mg PO DAILY [facility] Last Admin: 01/22/19 08:38 Dose: 150 mg Zinc Sulfate (Zinc Sulfate) 220 mg PO DAILY [facility] Last Admin: 01/22/19 08:38 Dose: 220 mg
[2019-01-22] MEDS: traMADol HCl 50 MG TAB PO PRN (20:39)
--- NOTE | 2019-01-22 23:09 | PRG ---
DATE OF SERVICE: 01/22/2019 SUBJECTIVE: Ms. Snowden has had no bleeding. She had a little bit of gas but her belly feels better now. OBJECTIVE: VITAL SIGNS: Temperature is 97, pulse 72, blood pressure 142/75. ABDOMEN: Soft, nontender, protuberant. at the bedside. LABORATORY DATA: Hemoglobin is 7.7 today, it was 8.3 yesterday. BUN and creatinine are 20 and 1.48, 19 and 1.53 yesterday. ASSESSMENT: 1. Reported melena and Hemoccult-positive stool. Esophagogastroduodenoscopy was negative. Colonoscopy was normal. No signs of bleeding since admission. Her hemoglobin did drop a little bit overnight, but I think this is probably related to IV fluids, which have been held now. She is tolerating a regular diet. 2. On reviewing old records, she has had multifactorial anemia for years. In fact, her previous hemoglobin was 9 on arrival here; at this hospital, it was 8. 3. 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 4. Severe cardiopulmonary disease. RECOMMENDATIONS: 1. The patient has followup for EUS. I think she will definitely need to be off her Xarelto for a couple of days before that, and if that is going to be in the next week or so, she can just stay off the Xarelto until after that procedure in [place] with her primary gastrologist. 2. I would go ahead and give her some IV iron. I have talked to the hospitalist and he is going to give her the Lasix thinking that her drop in hemoglobin if it drops further, she can get some blood. I do not think she is bleeding at this time. Likely, she had an obscure bleed related to the Xarelto. The fact that she had coffee-grounds emesis and black stools would point more of a gastric or definitely a proximal upper GI source and we saw nothing on endoscopy. I think at this time, we will just keep her on the PPIs. She should be able to go home in the next day or so. Job ID: [id number]
[2019-01-23] MEDS: traMADol HCl 50 MG TAB PO PRN ×3 (04:06→22:53)
[2019-01-23] MEDS: Metoprolol Tartrate 25 MG TAB PO SCH ×3 (05:04→21:47)
[2019-01-23] MEDS: Levothyroxine 150 MCG TAB PO SCH (05:04)
[2019-01-23 06:49] LABS: Reticulocyte Count 6.2 % (0.5-1.5)
[2019-01-23 06:51] LABS: Hemoglobin 7.9 g/dL (12.0-16.0); Platelet Count 264 thou/uL (130-400)
[2019-01-23 07:06] LABS: Anion Gap 14 mmol/L (10-20); BUN (Urea Nitrogen) 19 mg/dL (9.8-20.1); Calc. Creatinine Clearance 38 mL/min (70-130); Calcium 9.6 mg/dL (7.8-10.44); Carbon Dioxide 22 mmol/L (23-31); Chloride 108 mmol/L (98-107); Estimated GFR-MDRD 30; Glucose 112 mg/dL (83-110); Magnesium 1.9 mg/dL (1.6-2.6); Potassium 3.5 mmol/L (3.5-5.1); Sodium 140 mmol/L (136-145)
[2019-01-23] MEDS ORDERED: (Linaclotide [Linzess] 145 MCG) PO SCH (07:30)
--- NOTE | 2019-01-23 08:04 | RAD ---
XR Chest Pa Lat STANDARD HISTORY: Shortness of breath COMPARISON: None. FINDINGS: Heart size is enlarged with postop sternotomy change. Electronic devices overlying the ches t. There are increased interstitial lung markings which appear chronic in nature. Surgical sridevi are seen in the left axillary region. IMPRESSION: Cardiomegaly with chronic appearing lung change.
[2019-01-23] MEDS ORDERED: Iron Sucrose Complex 200 MG in Sodium Chloride 0.9% 250 ML 250 ML IVPB SCH (08:30)
[2019-01-23] MEDS ORDERED: Iron, Sodium Ferric Gluconate 250 MG in Sodium Chloride 0.9% 250 ML 250 ML IVPB SCH (09:00)
[2019-01-23] MEDS ORDERED: Furosemide 20 MG TAB PO SCH (09:00)
[2019-01-23] MEDS ORDERED: Losartan 25 MG TAB PO SCH ×3 (09:00→11:15)
[2019-01-23] MEDS: Amiodarone 200 MG TAB PO SCH (09:32)
[2019-01-23] MEDS: Zinc Sulfate 220 MG CAP PO SCH (09:32)
[2019-01-23] MEDS: Thiamine 100 MG TAB PO SCH (09:32)
[2019-01-23] MEDS: Furosemide 40 MG TAB PO SCH (09:32)
[2019-01-23] MEDS: Venlafaxine HCl XR 150 MG CAP PO SCH (09:32)
[2019-01-23] MEDS: Potassium Chloride 10 MEQ TAB PO SCH ×2 (09:32→17:45)
--- NOTE | 2019-01-23 11:17 | PRG ---
DATE OF SERVICE: 01/23/2019 SUBJECTIVE: The patient is an 78-year-old female with atrial fibrillation, on anticoagulation, and peptic ulcer disease, presented to the hospital on January 18, 2019, with abdominal discomfort along with dark stool. Her hemoglobin on admission was 8.0. She has received 2 units of PRBC this admission. She also underwent EGD and colonoscopy. The patient feels generally weak and lightheaded today. No new episode of hematemesis, melena, or abdominal pain reported. Shortness of breath is gradually improving. She had a chest x-ray this morning. OBJECTIVE: VITAL SIGNS: Temperature 97.7, pulse rate of 80, blood pressure of 110/60, respirations of 18, and O2 saturation 96% on room air. GENERAL: An 78-year-old female, in no apparent distress. LUNGS: Clear to auscultation bilaterally with scattered rhonchi. No rales appreciated. HEART: S1 and S2 present. Irregularly irregular. No rubs or gallops. ABDOMEN: Soft and nontender. Bowel sounds present. EXTREMITIES: No edema or calf tenderness. NEUROLOGIC: Grossly nonfocal. LABORATORY FINDINGS: Hemoglobin 7.9 with reticulocyte 6.2. Creatinine 1.65 with BUN of 19. Troponin yesterday was negative. IMAGING STUDIES: Chest x-ray by my review showed chronic appearing lung changes. IMPRESSION: 1. GI bleeding. Status post esophagogastroduodenoscopy and colonoscopy. Source unclear. 2. Acute blood loss anemia requiring 2 units of PRBC. 3. Iron deficiency, status post 1 dose of IV iron yesterday. 4. Chronic atrial fibrillation. Anticoagulation is currently on hold per Gastroenterology. Gastroenterology recommended to resume anticoagulation after 3 to 4 days, if hemoglobin remains stable. 5. Acute kidney injury on chronic kidney disease stage 3. Creatinine this morning was 1.65. 6. Chronic systolic and diastolic heart failure with recent exacerbation at [facility]. 7. History of peptic ulcer disease. 8. History of breast cancer. 9. Coronary artery disease. Please note that the patient does not take aspirin at home. 10. Hypothyroidism. 11. Hypertension. 12. Hypokalemia, replaced. 13. Metabolic acidosis. PLAN: The patient still has significant lightheadedness and generalized weakness. We will give her one more dose of IV iron. Recheck hemoglobin in a.m. We will transfer her to medical for now. We will consult bilingual patient support caseworker for home health. Please note that the patient is currently living with her son. There is nobody during the daytime to take care of her. She would benefit from home health care. We will continue low-dose metoprolol along with Lasix for now. Blood pressure this morning was 98/56. We will check orthostatic vital signs in a.m. We will continue walking program. Next plan was discussed with the patient, she stated understanding. Amiodarone and levothyroxine will be continued. Job ID: [id number] MTDD
[2019-01-24] MEDS: Levothyroxine 150 MCG TAB PO SCH (05:39)
[2019-01-24] MEDS: Metoprolol Tartrate 25 MG TAB PO SCH ×3 (05:39→21:44)
[2019-01-24 07:42] LABS: Hemoglobin 7.9 g/dL (12.0-16.0)
[2019-01-24 07:57] LABS: Anion Gap 13 mmol/L (10-20); BUN (Urea Nitrogen) 20 mg/dL (9.8-20.1); Calc. Creatinine Clearance 40 mL/min (70-130); Carbon Dioxide 23 mmol/L (23-31); Chloride 109 mmol/L (98-107); Estimated GFR-MDRD 32; Glucose 109 mg/dL (83-110); Potassium 3.8 mmol/L (3.5-5.1); Sodium 141 mmol/L (136-145)
[2019-01-24] MEDS: Venlafaxine HCl XR 150 MG CAP PO SCH (08:20)
[2019-01-24] MEDS: Potassium Chloride 10 MEQ TAB PO SCH ×2 (08:20→16:57)
[2019-01-24] MEDS: Furosemide 40 MG TAB PO SCH (08:20)
[2019-01-24] MEDS: Amiodarone 200 MG TAB PO SCH (08:20)
[2019-01-24] MEDS: Thiamine 100 MG TAB PO SCH (08:21)
[2019-01-24] MEDS: Zinc Sulfate 220 MG CAP PO SCH (08:22)
[2019-01-24] MEDS ORDERED: Losartan 25 MG TAB PO SCH (09:00)
[2019-01-24] MEDS ORDERED: Metoclopramide HCl 10 MG/2 ML VIAL IVP PRN (09:58)
--- NOTE | 2019-01-24 10:01 | PDOC.PN ---
- Subjective Encounter Start Date: 01/24/19 (f/u anemia) Encounter Start Time: 09:59 Subjective: Pt without complaints - although became nauseous with moving for -: exam. Some lightheaded when she stands up. - Objective Resuscitation Status - Order Detail: 01/18/19 15:24 Resuscitation Status Routine Resuscitation Status: FULL: Full Resuscitation Vital Signs & Weight: Vital Signs (12 hours) Temp Pulse Resp BP BP Pulse Ox 01/24/19 08:00 98.4 F 91 18 127/86 93 L 01/24/19 04:00 98.0 F 100 18 126/72 95 01/24/19 00:00 97.8 F 92 16 105/60 95 Weight Weight 194 lb 4.8 oz Most Recent Monitor Data NIBP 129/76 I&O: 01/23/19 01/24/19 01/25/19 06:59 06:59 06:59 Intake Total 1240 1330 Output Total 600 Balance 640 1330 Result Diagrams: 01/24/19 07:29 01/24/19 07:29 Phys Exam - Physical Examination Constitutional: NAD Respiratory: no wheezing, no rales, no rhonchi Cardiovascular: no significant murmur, irregular Gastrointestinal: soft, no distention, positive bowel sounds mild ttp throughout, no rebound/guarding/palp defects Musculoskeletal: no edema, pulses present Psychiatric: normal affect Skin: no rash Dx/Plan (1) GI bleed Code(s): K92.2 - GASTROINTESTINAL HEMORRHAGE, UNSPECIFIED Status: Acute Qualifiers: GI bleed type/associated pathology: unspecified gastrointestinal hemorrhage type Qualified Code(s): K92.2 - Gastrointestinal hemorrhage, unspecified (2) Anemia Code(s): D64.9 - ANEMIA, UNSPECIFIED Status: Acute Qualifiers: Other causes of anemia: acute posthemorrhagic (3) Atrial fibrillation Code(s): I48.91 - UNSPECIFIED ATRIAL FIBRILLATION Status: Chronic Qualifiers: Atrial fibrillation type: chronic Qualified Code(s): I48.2 - Chronic atrial fibrillation (4) CKD (chronic kidney disease) Code(s): N18.9 - CHRONIC KIDNEY DISEASE, UNSPECIFIED Status: Chronic Qualifiers: Chronic kidney disease stage: stage 3 (moderate) Qualified Code(s): N18.3 - Chronic kidney disease, stage 3 (moderate) (5) Heart failure Code(s): I50.9 - HEART FAILURE, UNSPECIFIED Status: Chronic Qualifiers: Heart failure type: combined systolic and diastolic Heart failure chronicity: chronic Qualified Code(s): I50.42 - Chronic combined systolic ( congestive) and diastolic (congestive) heart failure (6) Hypothyroid Code(s): E03.9 - HYPOTHYROIDISM, UNSPECIFIED Status: Chronic Qualifiers: Hypothyroidism type: unspecified Qualified Code(s): E03.9 - Hypothyroidism , unspecified (7) Hypertension Code(s): I10 - ESSENTIAL (PRIMARY) HYPERTENSION Status: Chronic Qualifiers: Hypertension type: essential hypertension Qualified Code(s): I10 - Essential (primary) hypertension - Plan * Nausea - uncertain ppt - reviewed ECG and pt has QTc of 556 - d/c zofran and order prn reglan * Anemia - sx at current Hb 7.9 - transfuse 1 unit prbc * abd pain -monitor as pt is s/p endoscopy * chronic a fib with GI bleed - on amio, Xarelto and aspirin on hold * HF - no signs of volume overload - hold lasix * HTN - d/c losartan for now as bp's on lower side - add back as bp's increase * CAD - asx, continue beta-esther, hold imdur as bp's on lower side * * dvt prophy - scd's * gi prophy - on home ppt * code status full * * anticipate home in 1-2 days based on response to blood and resolution of GI sx * reviewed plan of care wiht patient, no questinos or further needs at end of eval * pt remains at high risk in current condition.
[2019-01-24] MEDS: traMADol HCl 50 MG TAB PO PRN (10:55)
[2019-01-25 04:50] LABS: #Eosinphils 0.4 thou/uL (0.0-0.7); #Lymphocytes 1.4 thou/uL (1.20-3.40); #Monocytes 0.7 thou/uL (0.11-0.59); #Neutrophils 5.2 thou/uL (1.40-6.50); %Basophils 0.5 % (0.0-1.0); %Lymphocytes 18.6 % (21.0-51.0); %Neutrophils 66.8 % (42.0-75.0); Hemoglobin 8.6 g/dL (12.0-16.0); Mean Corpuscular HGB CONC 32.8 g/dL (32.0-36.0); Mean Corpuscular Hemoglobin 32.1 pg (27.0-31.0); Mean Corpuscular Volume 97.8 fL (78.0-98.0); Platelet Count 289 thou/uL (130-400); RBC Distribution Width 15.2 % (11.5-14.5); Red Blood Cell (RBC) Count 2.69 mill/uL (4.20-5.40); White Blood Cell (WBC) Count 7.7 thou/uL (4.8-10.8)
[2019-01-25 05:00] LABS: Anion Gap 14 mmol/L (10-20); BUN (Urea Nitrogen) 21 mg/dL (9.8-20.1); Calc. Creatinine Clearance 40 mL/min (70-130); Calcium 9.9 mg/dL (7.8-10.44); Carbon Dioxide 22 mmol/L (23-31); Chloride 108 mmol/L (98-107); Estimated GFR-MDRD 31; Glucose 111 mg/dL (83-110); Potassium 4.3 mmol/L (3.5-5.1); Sodium 140 mmol/L (136-145)
[2019-01-25] MEDS: Levothyroxine 150 MCG TAB PO SCH (06:33)
[2019-01-25] MEDS: Metoprolol Tartrate 25 MG TAB PO SCH (06:34)
[2019-01-25 07:53] VITALS: TEMP 98.3
[2019-01-25 07:58] VITALS: BP 122/77
[2019-01-25] MEDS: Potassium Chloride 10 MEQ TAB PO SCH (08:31)
[2019-01-25] MEDS: Furosemide 40 MG TAB PO SCH (08:31)
[2019-01-25] MEDS: Amiodarone 200 MG TAB PO SCH (08:31)
[2019-01-25] MEDS: Zinc Sulfate 220 MG CAP PO SCH (08:32)
[2019-01-25] MEDS: Venlafaxine HCl XR 150 MG CAP PO SCH (08:32)
[2019-01-25] MEDS: Thiamine 100 MG TAB PO SCH (08:34)
--- NOTE | 2019-01-25 12:26 | PDOC.PN ---
- Subjective Encounter Start Date: 01/25/19 (f/u GI bleed) Encounter Start Time: 12:23 Subjective: Pt reports feeling better today. Denies any n/v/abd pain. Does -: note that her pulse increases at times while sitting - Objective Resuscitation Status - Order Detail: 01/18/19 15:24 Resuscitation Status Routine Resuscitation Status: FULL: Full Resuscitation Vital Signs & Weight: Vital Signs (12 hours) Temp Pulse Resp BP BP BP Pulse Ox 01/25/19 08:00 93 L 01/25/19 07:55 122/77 137/78 119/74 01/25/19 07:52 98.3 F 119 H 16 137/78 93 L Weight Weight 199 lb 4.766 oz Most Recent Monitor Data NIBP 129/76 I&O: 01/24/19 01/25/19 01/26/19 06:59 06:59 06:59 Intake Total 1330 1850 Balance 1330 1850 Result Diagrams: 01/25/19 04:30 01/25/19 04:30 Phys Exam - Physical Examination Constitutional: NAD Respiratory: no wheezing, no rales, no rhonchi, clear to auscultation bilateral Cardiovascular: RRR, no significant murmur tachy - 110's Gastrointestinal: soft, non-tender, no distention, positive bowel sounds Musculoskeletal: no edema, pulses present Neurological: non-focal, moves all 4 limbs Psychiatric: normal affect Skin: no rash Dx/Plan (1) GI bleed Code(s): K92.2 - GASTROINTESTINAL HEMORRHAGE, UNSPECIFIED Status: Acute Qualifiers: GI bleed type/associated pathology: unspecified gastrointestinal hemorrhage type Qualified Code(s): K92.2 - Gastrointestinal hemorrhage, unspecified (2) Anemia Code(s): D64.9 - ANEMIA, UNSPECIFIED Status: Acute Qualifiers: Other causes of anemia: acute posthemorrhagic (3) Atrial fibrillation Code(s): I48.91 - UNSPECIFIED ATRIAL FIBRILLATION Status: Chronic Qualifiers: Atrial fibrillation type: chronic Qualified Code(s): I48.2 - Chronic atrial fibrillation (4) CKD (chronic kidney disease) Code(s): N18.9 - CHRONIC KIDNEY DISEASE, UNSPECIFIED Status: Chronic Qualifiers: Chronic kidney disease stage: stage 3 (moderate) Qualified Code(s): N18.3 - Chronic kidney disease, stage 3 (moderate) (5) Heart failure Code(s): I50.9 - HEART FAILURE, UNSPECIFIED Status: Chronic Qualifiers: Heart failure type: combined systolic and diastolic Heart failure chronicity: chronic Qualified Code(s): I50.42 - Chronic combined systolic ( congestive) and diastolic (congestive) heart failure (6) Hypothyroid Code(s): E03.9 - HYPOTHYROIDISM, UNSPECIFIED Status: Chronic Qualifiers: Hypothyroidism type: unspecified Qualified Code(s): E03.9 - Hypothyroidism , unspecified (7) Hypertension Code(s): I10 - ESSENTIAL (PRIMARY) HYPERTENSION Status: Chronic Qualifiers: Hypertension type: essential hypertension Qualified Code(s): I10 - Essential (primary) hypertension - Plan * Tachy - reviewed home meds and pt takes 50 mg bid, here we have 25 mg TID ordered. Will order 25 mg now and change to her home dosing * Nausea - resolved - prn reglan * Anemia - improved after 1 unit prbc * abd pain -improved * chronic a fib with GI bleed - on amio, will keep Xarelto and aspirin on hold * HF - compensated. Losartan held due to bp's, and pt had lasix ordered. * * HTN - well controlled - continue metoprolol and lasix * CAD - asx, continue beta-esther, hold imdur * * dvt prophy - scd's * gi prophy - on home ppt * code status full * * anticipate home today if pulse returns to normal. * discussed plan of care with patient, and son by phone, no questions or further needs at end of eval. * Rechecked pulse and 94 now. Discussed with patient and she's had this in the past. Irregularly irregular. No change to these meds. Pt reports nausea intermittent and less severe than when she came in and the abd pain is improved. She has a pancreas mass and EUS planned in [place] next month - will f/u there for it.
[2019-01-25] MEDS ORDERED: Metoprolol Tartrate 25 MG TAB PO SCH (12:30)
--- NOTE | 2019-01-25 17:47 | PRG ---
DATE OF SERVICE: 01/25/2019 SUBJECTIVE: Ms. Snowden has had no further bleeding. She is eating okay. She has had a little bit of nausea at times, but today denies nausea, vomiting, or abdominal pain. PHYSICAL EXAMINATION: VITAL SIGNS: Pulse is 94 to 117. LUNGS: Clear. HEART: Regular rate and rhythm. ABDOMEN: Soft and nontender. LABORATORY DATA: Hemoglobin is 8.6. BUN and creatinine are 21 and 1.6. ASSESSMENT: 1. Admission for possible gastrointestinal bleeding. Her hemoglobin on admission was not really much down from her baseline, which is between anywhere from 8 to 10. It comes form review of her old records from a couple of hospitalizations recently. There is a history of melenic stool or coffee-ground like stool and possibly some hematemesis. Endoscopies above and below showed no overt bleeding lesions. I suspect that her anemia is multifactorial. There was probably a component of GI blood loss related to her Eliquis. On admission, 01/18, her iron was 93, TIBC 411, ferritin 43. 2. History of pancreatic lesion on outside CT. We reviewed those films. She is set up for an endoscopic ultrasound by a yarn spinner in [facility] later in January and that is a reasonable course. 3. Atrial fibrillation. 4. Chronic kidney disease. RECOMMENDATIONS: 1. As far as her anemia, I think she could be on iron daily once. We will continue PPI. If she would have signs of recurrent bleeding, we will consider capsule endoscopy of the small bowel. 2. 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 She is for EUS for this. That is in [place] with a doctor in the [facility]. 3. Chronic atrial fibrillation, irregular heart rate, on amiodarone. Talked with Dr. Aranza More. We are going to restart her Xarelto, but hold her aspirin for now. I would be happy to see her back in the outpatient setting if necessary, but presently she has followup with an outpatient yarn spinner in the [facility] with reasonable plan set up. Job ID: [id number]
[2019-01-25] MEDS ORDERED: Metoprolol Tartrate 50 MG TAB PO SCH (21:00)
--- NOTE | 2019-01-26 05:49 | DIS ---
DATE OF ADMISSION: 01/18/2019 DATE OF DISCHARGE: 01/25/2019 CONSULTANTS: GI, Dr. Sinha. MEDICATIONS RECONCILED AT DISCHARGE: 1. Discontinued medications are Imdur, discontinued for now as blood pressures are on the lower side, to be re-evaluated in the outpatient setting with the dairy specialist. 2. Xarelto, discontinued for now, to be revisited in the outpatient setting with the dairy specialist. 3. New medications are tramadol 50 mg one tablet every 6 hours as needed for moderate pain. 4. Reglan 5 mg every 6 hours as needed for nausea and vomiting. 5. Medications to continue are amiodarone 200 mg daily. 6. Furosemide 20 mg daily. 7. Levothyroxine 150 mcg daily. 8. Linzess 145 mcg daily. 9. Losartan 50 mg daily. 10. Metoprolol tartrate 50 mg b.i.d. 11. Protonix 40 mg daily. 12. Thiamine 100 mg daily. 13. Venlafaxine 150 mg daily. 14. Zinc 220 mg daily. FINAL DIAGNOSES: 1. Acute on chronic anemia concerning for gastrointestinal bleed, however negative evaluation here. 2. Chronic atrial fibrillation, was on full anticoagulation. This is being held at the time of discharge. 3. Chronic kidney disease, stage 3. 4. Chronic systolic and diastolic heart failure with recent exacerbation. 5. Iron deficiency, status post one dose of IV iron. 6. Diverticulosis on colonoscopy. SECONDARY DIAGNOSES: 1. Hypertension. 2. Hypokalemia, resolved. 3. Coronary artery disease. 4. History of peptic ulcer disease. 5. History of breast cancer. 6. Mood disorder. HISTORY OF PRESENT ILLNESS: Ms. Snowden is an 78-year-old female with the above medical problems, who presented to the emergency room with three days of nausea, intermittent vomiting, dark tarry stools and concern for hematemesis. She was admitted for further evaluation. HOSPITAL COURSE: The patient was admitted to the hospital with IV fluid hydration and in total received 3 units of packed red blood cells on 1 unit each on January 18, January 19, and January 24. There has been no active bleeding here. In consultation with Dr. Sinha of GI, the patient underwent endoscopy on January 21, which had demonstrated diverticulosis coli but no active bleeding. The patient underwent EGD on January 19, which showed a normal esophagus, stomach and duodenum, and no evidence of bleeding. The patient on admission had an abdominal and pelvic CT, which did not show any acute process. It does show some gallbladder sludge. 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 Her abdominal pain may be coming from this. On review of the CT results, her abdominal pain may also be coming from gallbladder dysfunction and an outpatient evaluation may be indicated. However, this would not explain the acute on chronic anemia. The patient's medications have been minimized here because of blood pressures that were on the low and low normal side. She was kept on a lower dose of metoprolol and her usual Lasix. The losartan will be added back. She will need monitoring of her renal function. It appears she does have stage 3 chronic kidney disease by review of her labs with her creatinine here ranging from 1.33 to 1.60. In review two years ago, the patient's creatinine was 1.4 at that time. The ARB will be added back. Her home Imdur for now will be on hold pending re-evaluation by her dairy specialist. Because of concern of GI bleed, her Xarelto has been held here. I discussed the risks and benefits with the patient to include the risk of rebleeding despite having negative endoscopy here. We also discussed the risk of stroke associated with the known and chronic atrial fibrillation. I recommend that we continue to hold the Xarelto until patient follows up with her dairy specialist back in her local area. The patient was kept on her usual amiodarone. She did have elevated heart rates at times that was irregularly irregular, as high today as 128. Her EKG does show a left bundle branch block which is unchanged compared to admission and her rhythm is regular. Her metoprolol was changed back to 50 mg b.i.d. from 25 mg t.i.d., and patient is asymptomatic. I recommend that she follow up with her dairy specialist for this as well. The patient overall improved, is tolerating p.o., pain is controlled with tramadol as needed, and the nausea is controlled with Reglan as needed, which she has not needed today. She does meet criteria for discharge to home with a plan for close followup with her dairy specialist and GI physician. PHYSICAL EXAMINATION: On the day of discharge, please see the note on the chart. GENTILE FINDINGS AND TEST RESULTS: Her CBC today is 7.7, 8.6, 26.3, 289. Of note, the lowest of her hemoglobin was 7.3 on January 19. Her reticulocyte count is 6.2. Chemistry today 140, 4.3, 108, 22, 21, 1.6, 111. Troponin was 0.024. LFTs were negative. Chest x-ray on 01/23 showed cardiomegaly with chronic appearing lung changes. Colonoscopy on January [address] Sinha showed diverticulosis coli, no active bleeding and no signs of colitis. EGD on January [address] Sinha was normal esophagus, normal stomach, normal duodenum, and no evidence of a Nadine-Gramajo tear and no bleeding identified. CT abdomen and pelvis on January 18 shows gallbladder sludge. Moderate diverticular disease of the sigmoid colon without active current inflammation, mild pancreatic atrophy and moderate facet arthropathy in the lower lumbar spine. DIET: Heart healthy. ACTIVITY: As tolerated. The patient advised to go slow when changing positions to avoid precipitous drop in her blood pressure. Home Health has been arranged for her local area of [place], [place], when she returns home. She is being discharged and plans to stay with her son. She is advised to have close followup with her primary care provider, GI provider, and dairy specialist as recommended. CODE STATUS: Full. Reviewed with patient this hospitalization, the importance of followup, the risks and benefits of holding the Xarelto in the face of risk of stroke associated with chronic atrial fibrillation, and to seek care and return for care precautions. She demonstrates understanding. TIME SPENT: Total time coordinating discharge is 50 minutes. Job ID: [id number]
== END 2019-01-25 15:58 | disposition home health service (06) | DRG 378 ==
LOC: ERS 10:56 → 2NO 16:59 → ONC 01-23 13:05
PROVIDERS: ADMIT Internal Medicine; ATTEND Internal Medicine
PROC: 0DJ08ZZ Inspection of Upper Intestinal Tract, Via Natural or Artificial Opening Endoscopic (ICD-10-PCS; principal; 2019-01-19)
PROC: 0DJD8ZZ Inspection of Lower Intestinal Tract, Via Natural or Artificial Opening Endoscopic (ICD-10-PCS; 2019-01-21)
DX: K92.2 Gastrointestinal hemorrhage, unspecified (principal); D62 Acute posthemorrhagic anemia; I13.0 Hypertensive heart and chronic kidney disease with heart failure and stage 1 through stage 4 chronic kidney disease, or unspecified chronic kidney disease; I50.42 Chronic combined systolic (congestive) and diastolic (congestive) heart failure; N17.9 Acute kidney failure, unspecified; E87.2 Acidosis; K57.90 Diverticulosis of intestine, part unspecified, without perforation or abscess without bleeding; F32.9 Major depressive disorder, single episode, unspecified; E03.9 Hypothyroidism, unspecified; I34.0 Nonrheumatic mitral (valve) insufficiency; E87.6 Hypokalemia; I25.10 Atherosclerotic heart disease of native coronary artery without angina pectoris; D64.9 Anemia, unspecified; D63.1 Anemia in chronic kidney disease; N18.3 Chronic kidney disease, stage 3 (moderate); E83.52 Hypercalcemia; I48.2 Chronic atrial fibrillation; Z79.01 Long term (current) use of anticoagulants; Z87.11 Personal history of peptic ulcer disease; Z85.3 Personal history of malignant neoplasm of breast; Z91.09 Other allergy status, other than to drugs and biological substances; Z87.891 Personal history of nicotine dependence
CPT/HCPCS: 36415; 36430; 71046; 74176; 80048; 80053; 82274; 82728; 83540; 83550; 83735; 84484; 85014; 85018; 85025; 85046; 85049; 86850; 86900; 86901; 93005; 93010; 96361; 96365; 96374; 96375; C9113; J1756; J2001; J2405; J2704; J2765; J2916; J3490; J7050; P9016

== ENCOUNTER 2019-01-27 20:19 | Inpatient (IN) | payer MEDICARE ==
[2019-01-27 21:09] LABS: #Eosinphils 0.3 thou/uL (0.0-0.7); #Lymphocytes 1.1 thou/uL (1.20-3.40); #Monocytes 0.7 thou/uL (0.11-0.59); #Neutrophils 6.4 thou/uL (1.40-6.50); %Basophils 0.1 % (0.0-1.0); %Eosinophils 3.1 % (0.0-10.0); %Lymphocytes 12.7 % (21.0-51.0); %Monocytes 7.9 % (0.0-10.0); %Neutrophils 76.2 % (42.0-75.0); Hemoglobin 9.3 g/dL (12.0-16.0); Mean Corpuscular HGB CONC 32.4 g/dL (32.0-36.0); Mean Corpuscular Hemoglobin 32.3 pg (27.0-31.0); Mean Corpuscular Volume 99.7 fL (78.0-98.0); Mean Platelet Volume 7.8 fL (7.4-10.4); Platelet Count 335 thou/uL (130-400); RBC Distribution Width 16.1 % (11.5-14.5); Red Blood Cell (RBC) Count 2.88 mill/uL (4.20-5.40); White Blood Cell (WBC) Count 8.4 thou/uL (4.8-10.8)
--- NOTE | 2019-01-27 21:13 | RAD ---
ONE VIEW CHEST: 01/27/19 COMPARISON: 01/23/19. HISTORY: Tachycardia. Nausea. FINDINGS: There are sternotomy wires. Loop recorder is noted. Enlarged cardiac silhouette. The pulmonary vessel s are prominent. Persistent interstitial opacities. No significant pleural fluid. There is stable hyperinflation. No pneumothorax. Chronic changes involving the left shoulder. IMPRESSION: 1. Hyperinflation. 2. Stable interstitial opacities which are presumed to be chronic. 3. Cardiomegaly. POS: PPP
[2019-01-27 21:29] LABS: ALT (SGPT) 18 U/L (8-55); AST (SGOT) 18 U/L (5-34); Albumin 3.8 g/dL (3.4-4.8); Alkaline Phosphatase 159 U/L (40-150); Anion Gap 15 mmol/L (10-20); BUN (Urea Nitrogen) 27 mg/dL (9.8-20.1); Bilirubin, Total 0.8 mg/dL (0.2-1.2); CK (CPK) 38 U/L (29-168); Calc. Creatinine Clearance 0 mL/min (70-130); Calcium 9.8 mg/dL (7.8-10.44); Carbon Dioxide 22 mmol/L (23-31); Chloride 106 mmol/L (98-107); Estimated GFR-MDRD 27; Glucose 114 mg/dL (83-110); Magnesium 1.7 mg/dL (1.6-2.6); Potassium 4.1 mmol/L (3.5-5.1); Protein, Total 6.8 g/dL (6.0-8.3); Sodium 139 mmol/L (136-145)
[2019-01-27 22:01] LABS: INR-International Normal Ratio 1.2; Prothrombin Time 14.9 SEC (12.0-14.7)
[2019-01-27 23:27] LABS: Bilirubin Negative (Negative); Blood, Urine Negative (Negative); Clarity CLEAR (Clear); Glucose, Urine (Dipstick) Negative (Negative); Leukocyte Negative (Negative); Nitrite Negative (Negative); Protein, Urine (Dipstick) Negative (Neg-Trace)
[2019-01-28 00:56] LABS: Troponin I 0.033 ng/mL (< 0.028)
[2019-01-28] MEDS ORDERED: Furosemide 40 MG/4 ML VIAL ONE (01:34)
[2019-01-28 04:33] LABS: Troponin I 0.019 ng/mL (< 0.028)
[2019-01-28] MEDS ORDERED: traMADol HCl 50 MG TAB PO PRN (10:43)
[2019-01-28] MEDS ORDERED: Furosemide 40 MG TAB ONE (10:48)
[2019-01-28] MEDS ORDERED: Furosemide 40 MG TAB PO SCH ×2 (11:15→21:00)
--- NOTE | 2019-01-28 13:28 | HP ---
PRIMARY CARE PHYSICIAN: Dr. Milan Westfall. CHIEF COMPLAINT: Shortness of breath. HISTORY OF PRESENT ILLNESS: This is an 78-year-old female patient with history of atherosclerotic cardiovascular disease, valvular disease, atrial fibrillation, hypertension, hyperlipidemia, recent hospitalization for upper gastrointestinal bleed, who presents to the emergency department with episode of shortness of breath. The patient states that she was recently discharged from the hospital 3 days ago after developing black tarry stools and abdominal pain. She was admitted, underwent EGD and colonoscopy, and discharged home in good condition. She was told to hold off on taking her anticoagulants for 3 to 4 days due to the episode of GI bleed. She was transfused a total of 3 units of packed red blood cells during the hospitalization, last one on January 24. During that hospitalization, she was found to have a pancreatic mass, for which she follows up with a doctor in [place]. She was doing well since the discharge home until she developed this shortness of breath last night. She reports that she was not doing much activity. Her shortness of breath came at rest. She denied chest pain. She did have some orthopnea when she would lay back and worsening swelling of her lower extremities. She was seen in the emergency department, given a dose of IV Lasix and she has had significant improvement of both her dyspnea as well as her edema. She states that she was last seen by her security flex officer in [place] about 2 to 3 weeks ago. She reports having had an echocardiogram at that time, but there is no report in her inpatient or outpatient chart. She is now being admitted for further evaluation and treatment of episode of CHF exacerbation. PAST MEDICAL HISTORY: Atherosclerotic cardiovascular disease, atrial fibrillation, hypertension, anxiety and depression, recent episode of upper gastrointestinal bleed, pancreatic mass. History of left breast cancer status post mastectomy, hypothyroidism, former smoker, chronic systolic and diastolic heart failure with episode of volume overload at [facility] [place] [facility] in [place]. PAST SURGICAL HISTORY: Hip repair at age of 76, EGD and colonoscopy in December of 2018. Cardiac valve repair in 2017. ALLERGIES: TO VALIUM. CURRENT MEDICATIONS: Include; 1. Amiodarone. 2. Levothyroxine. 3. Lasix. 4. Aspirin. 5. Isosorbide. 6. Losartan. 7. Metoprolol. 8. Protonix. 9. Effexor. 10. Zinc. 11. Thiamine. Her Xarelto is being held at this time. SOCIAL HISTORY: Remote smoker. Denies alcohol. Denies drug use. She lives in [place], [place]. Retired. She lives with her son. Full code. FAMILY HISTORY: Father with malignancy and hypertension. Mother with heart disease and stroke. Siblings with diabetes and hypertension. She has a son with diabetes and hypertension. REVIEW OF SYSTEMS: As per the history of present illness. She denies any recent fevers, chills, or recent illness. HEENT: Denies headache, visual or hearing changes. CARDIAC: Denies chest pain or palpitations. PULMONARY: Denies cough. Positive shortness of breath. GI: Episode of recent upper GI bleed. Denies nausea or vomiting. : Denies dysuria or hematuria. NEUROLOGIC: No weakness, seizures, or syncope. PHYSICAL EXAMINATION: VITAL SIGNS: Reviewed in the emergency department. GENERAL: She is awake and alert. No acute distress. Speech is clear and fluid. NECK: Supple. No bruits. HEART: Irregularly irregular. LUNGS: Clear but distant. ABDOMEN: Soft. EXTREMITIES: With 1+ edema bilaterally. NEUROLOGIC: Cranial nerves 2 through 12 are intact. LABORATORY DATA: Sodium 139, potassium 4.1, chloride 106, CO2 of 22, BUN and creatinine are 27 and 1.81 with a GFR of 27, glucose of 114, calcium 9.8, and magnesium of 1.7. AST and ALT are normal. Troponin-I: 1. Less than 0.01. 2. 0.033. 3. 0.019. BNP was elevated at 834. We do not have any others to compare to. Chest x-ray revealed cardiomegaly; stable interstitial opacities, assumed to be chronic; hyperinflation. ASSESSMENT AND PLAN: 1. This is an 78-year-old female patient with known coronary artery disease, atrial fibrillation, and recent admission for upper gastrointestinal bleed, now with episode of congestive heart failure exacerbation. She seems to have improved with IV Lasix. We will try to obtain her records from her prior hospitalizations in [place]. Consult Cardiology. Check echocardiogram for left ventricular ejection fraction. 2. Hypertension. We will continue her medications. 3. Recent gastrointestinal bleed. We will continue Protonix twice a day and hold Xarelto. Recheck guaiac stools. 4. Atrial fibrillation. We will continue amiodarone, restart anticoagulation if stools are negative for blood. 5. Code status: She desires full code. 6. History of a pancreatic mass. She has follow up with gastroenterology. Continue workup as an outpatient Job ID: [id number] [facility]
[2019-01-28 13:33] VITALS: BMI 28.0
[2019-01-28] MEDS ORDERED: Diltiazem 125 MG in Sodium Chloride 0.9% 100 ML IVPB SCH (17:30)
[2019-01-28] MEDS ORDERED: Furosemide 40 MG/4 ML VIAL SLOW IVP SCH (17:30)
[2019-01-28] MEDS: Metoprolol Tartrate 50 MG TAB PO SCH (20:29)
[2019-01-28] MEDS ORDERED: Furosemide 20 MG TAB PO SCH (21:00)
--- NOTE | 2019-01-28 23:46 | CON ---
DATE OF CONSULTATION: 01/28/2019 REASON FOR CONSULTATION: Atrial fibrillation with RVR and heart failure. HISTORY OF PRESENT ILLNESS: Ms. Snowden is a very pleasant 78-year-old white female, who comes to the hospital for shortness of breath. She has a significant cardiac history and follows with a cross tie maker in [place] at [facility]. She lives in [place], [place] and has a place in [place] where she stays whenever she sees her cross tie maker over there. She has a history of chronic atrial fibrillation, on anticoagulation with Xarelto. More recently about a year and a half ago, she underwent valve surgery. Apparently, she had 2 valves worked and it sounds like a mitral valve and tricuspid valve. She came into the hospital about 2 weeks ago for bleeding. She was on Xarelto for atrial fibrillation, this was stopped. EGD and colonoscopy were unremarkable. She had diverticulosis, but no evidence of bleeding. She was discharged home on no Xarelto, but her other medications were continued including her amiodarone and her metoprolol. She came back as she started to get more short winded and was admitted and found to be in heart failure and atrial fibrillation with RVR, so Cardiology has been consulted for this. PAST MEDICAL HISTORY: 1. Chronic atrial fibrillation. 2. Peptic ulcer disease. 3. Left breast cancer. 4. Hypothyroidism. 5. Former smoker. 6. EF at 45% to 50% on last evaluation. 7. Moderate MR. 8. Hypothyroidism. PAST SURGICAL HISTORY: 1. Hip repair. 2. EGD and colonoscopy recently. 3. Cardiac valve repair a year and half ago. OUTPATIENT MEDICATIONS: 1. Lasix 20 mg a day. 2. Ferrous sulfate. 3. Amiodarone 200 mg a day. 4. Linzess 145 mcg a day. 5. Synthroid 150 mcg a day. 6. Losartan 50 mg a day. 7. Pantoprazole 40 mg a day. 8. Metoprolol 50 mg b.i.d. 9. Metoclopramide 5 mg q.i.d. 10. Zinc sulfate. 11. Venlafaxine. 12. Vitamin B1. 13. Tramadol p.r.n. ALLERGIES: DIAZEPAM. FAMILY HISTORY: Mother with heart disease and stroke. SOCIAL HISTORY: Former smoker. Denies alcohol or drug use. REVIEW OF SYSTEMS: A 12-point review of systems was done and was all negative unless stated in the history of present illness. PHYSICAL EXAMINATION: VITAL SIGNS: Temperature 98.1, pulse 120, respiratory rate 18, saturation 94% on room air, and blood pressure 127/78. GENERAL: Awake, alert, oriented x3. No distress. HEENT: Normocephalic, atraumatic. NECK: Supple. LUNGS: Clear. CARDIOVASCULAR: S1 and S2. No S3 or S4. No murmurs. Heart rate is irregularly irregular. ABDOMEN: Soft. Positive bowel sounds. EXTREMITIES: No edema. SKIN: Warm and dry. LABORATORY DATA: Laboratory work was reviewed. CBC with a white count of 8.4, hemoglobin 9.3, hematocrit 28, platelet count 355. Coags were reviewed. Chemistries were reviewed. BUN of 27, creatinine 0.81. Her creatinine is a little bit higher than baseline. Troponins are negative x3. BNP of 834. UA was negative. ASSESSMENT: 1. Acute on chronic systolic versus diastolic heart failure. 2. Atrial fibrillation with rapid ventricular response. 3. Chronic atrial fibrillation. 4. Recent GI bleeding. 5. Chronic anticoagulation, Xarelto on hold secondary to GI bleeding. 6. Recent valve repair about a year and a half ago. PLAN: 1. We will elect for rate control at this time. 2. We will continue IV diuresis with Lasix. This will also help with rate control as well. We will start diltiazem drip for better rate control. Continue home dose of amiodarone. 3. We will try to get records from [facility]. 4. We will follow. Job ID: [id number]
[2019-01-29 05:09] LABS: #Eosinphils 0.2 thou/uL (0.0-0.7); #Monocytes 0.6 thou/uL (0.11-0.59); #Neutrophils 3.8 thou/uL (1.40-6.50); %Basophils 0.3 % (0.0-1.0); %Eosinophils 3.5 % (0.0-10.0); %Lymphocytes 17.7 % (21.0-51.0); %Monocytes 10.6 % (0.0-10.0); Hemoglobin 8.7 g/dL (12.0-16.0); Mean Corpuscular HGB CONC 32.9 g/dL (32.0-36.0); Mean Corpuscular Hemoglobin 32.7 pg (27.0-31.0); Mean Corpuscular Volume 99.6 fL (78.0-98.0); Mean Platelet Volume 7.8 fL (7.4-10.4); Platelet Count 275 thou/uL (130-400); RBC Distribution Width 16.4 % (11.5-14.5); Red Blood Cell (RBC) Count 2.67 mill/uL (4.20-5.40); White Blood Cell (WBC) Count 5.6 thou/uL (4.8-10.8)
[2019-01-29 05:20] LABS: Anion Gap 12 mmol/L (10-20); BUN (Urea Nitrogen) 26 mg/dL (9.8-20.1); Calc. Creatinine Clearance 38 mL/min (70-130); Calcium 9.9 mg/dL (7.8-10.44); Carbon Dioxide 28 mmol/L (23-31); Estimated GFR-MDRD 30; Glucose 106 mg/dL (83-110); Potassium 3.2 mmol/L (3.5-5.1)
[2019-01-29 05:32] LABS: Chloride 103 mmol/L (98-107); Sodium 140 mmol/L (136-145)
[2019-01-29] MEDS ORDERED: Levothyroxine 150 MCG TAB PO SCH (06:00)
[2019-01-29] MEDS: Furosemide 40 MG/4 ML VIAL SLOW IVP SCH ×2 (06:02→13:24)
[2019-01-29] MEDS ORDERED: Linaclotide [Linzess] 145 MCG PO SCH (07:30)
[2019-01-29] MEDS: Metoprolol Tartrate 50 MG TAB PO SCH (08:56)
[2019-01-29] MEDS ORDERED: Amiodarone 200 MG TAB PO SCH (09:00)
[2019-01-29] MEDS ORDERED: Ferrous Gluconate 324 MG TAB PO SCH (09:00)
[2019-01-29] MEDS ORDERED: Losartan 25 MG TAB PO SCH (09:00)
[2019-01-29] MEDS ORDERED: Venlafaxine HCl XR 150 MG CAP PO SCH (09:00)
[2019-01-29] MEDS ORDERED: Zinc Sulfate 220 MG CAP PO SCH (09:00)
[2019-01-29] MEDS ORDERED: Thiamine 100 MG TAB PO SCH (09:00)
--- NOTE | 2019-01-29 12:04 | PRG ---
DATE OF SERVICE: 01/29/2019 SUBJECTIVE: Ms. Snowden states she is feeling very well. No shortness of breath. States she feels as well as she has felt a long time. OBJECTIVE: VITAL SIGNS: Temperature 97.9, pulse 59 and irregular, BP 120/63, and O2 saturations 92% on room air. LUNGS: Reveals a bilateral breath sounds. HEART: Reveals an irregularly irregular rhythm. ABDOMEN: Soft and nontender. Bowel sounds present and active. LABORATORY DATA: Hemoglobin 8.7 and hematocrit 26.6. Electrolytes; sodium 140, potassium 3.2, chloride 103, CO2 of 28, and BUN 1.67. IMPRESSION: Atrial fibrillation with a rapid ventricular response component of heart failure. PLAN: 1. Continue current medications. 2. Hopefully can get rid of diltiazem. Start oral diltiazem. Job ID: [id number]
[2019-01-29 16:10] VITALS: BP 120/63; TEMP 98.1
--- NOTE | 2019-01-30 07:40 | DIS ---
DATE OF ADMISSION: 01/28/2019 DATE OF DISCHARGE: 01/29/2019 DISCHARGING PHYSICIAN: Enrrique Reilly MD. SUMMARY: Ms. Snowden is a pleasant 78-year-old white female, who came to the hospital for shortness of breath. She was found to be in atrial fibrillation with rapid ventricular response, little bit of heart failure. She had an echo done, showed normal LV function. She was started on a diltiazem drip, slow down, eventually converted on herself to sinus rhythm. She is chronically on amiodarone and has been off her Xarelto because of GI bleeding recently. She follows with a quality control tech raw materials in [place]. She is doing much better today. She has been diuresed back to her normal breathing status. She feels very well back to her baseline. Should be able to be discharged home on home regimen. No changes for now. DISCHARGE MEDICATIONS: Unchanged from admission, same home medications. FOLLOWUP: Follow up with her own Cardiology. She already has an appointment this Tuesday. Job ID: [id number]
== END 2019-01-29 19:30 | disposition home or self-care (01) | DRG 308 ==
LOC: ERS 20:19 → ERHOLD 01-28 00:10 → 2NO 01-28 13:22
PROVIDERS: ADMIT Family Medicine; ATTEND Family Medicine
DX: I48.91 Unspecified atrial fibrillation (principal); I50.43 Acute on chronic combined systolic (congestive) and diastolic (congestive) heart failure; I11.0 Hypertensive heart disease with heart failure; E03.9 Hypothyroidism, unspecified; I25.10 Atherosclerotic heart disease of native coronary artery without angina pectoris; E78.5 Hyperlipidemia, unspecified; F41.9 Anxiety disorder, unspecified; F32.9 Major depressive disorder, single episode, unspecified; Z87.891 Personal history of nicotine dependence; Z88.8 Allergy status to other drugs, medicaments and biological substances; Z79.82 Long term (current) use of aspirin; Z79.899 Other long term (current) drug therapy; Z79.01 Long term (current) use of anticoagulants
CPT/HCPCS: 36415; 36416; 71045; 80048; 80053; 81003; 82274; 82550; 83735; 83880; 84484; 85025; 85610; 85730; 86850; 86900; 86901; 93005; 93010; 93306; 93798; J1940; J3490

== ENCOUNTER 2019-02-01 10:01 | Emergency (ER) | payer MEDICARE ==
[2019-02-01] MEDS ORDERED: Ondansetron PF 4 MG/2 ML Vial ONE (10:19)
[2019-02-01 10:41] LABS: #Basophils 0.1 thou/uL (0.0-0.2); #Eosinphils 0.2 thou/uL (0.0-0.7); #Lymphocytes 1.1 thou/uL (1.20-3.40); #Monocytes 0.5 thou/uL (0.11-0.59); #Neutrophils 4.7 thou/uL (1.40-6.50); %Basophils 0.9 % (0.0-1.0); %Eosinophils 2.6 % (0.0-10.0); %Lymphocytes 17.1 % (21.0-51.0); %Monocytes 7.4 % (0.0-10.0); Hemoglobin 9.4 g/dL (12.0-16.0); Mean Corpuscular HGB CONC 32.4 g/dL (32.0-36.0); Mean Corpuscular Hemoglobin 32.2 pg (27.0-31.0); Mean Corpuscular Volume 99.3 fL (78.0-98.0); Mean Platelet Volume 7.6 fL (7.4-10.4); Platelet Count 291 thou/uL (130-400); RBC Distribution Width 15.7 % (11.5-14.5); Red Blood Cell (RBC) Count 2.93 mill/uL (4.20-5.40); White Blood Cell (WBC) Count 6.5 thou/uL (4.8-10.8)
[2019-02-01 11:02] LABS: ALT (SGPT) 19 U/L (8-55); AST (SGOT) 20 U/L (5-34); Albumin 3.9 g/dL (3.4-4.8); Alkaline Phosphatase 140 U/L (40-150); Anion Gap 17 mmol/L (10-20); BUN (Urea Nitrogen) 30 mg/dL (9.8-20.1); Bilirubin, Total 0.7 mg/dL (0.2-1.2); Calc. Creatinine Clearance 0 mL/min (70-130); Calcium 10.2 mg/dL (7.8-10.44); Carbon Dioxide 25 mmol/L (23-31); Chloride 103 mmol/L (98-107); Estimated GFR-MDRD 27; Globulin 2.7 g/dL (2.4-3.5); Glucose 139 mg/dL (83-110); Lipase 44 U/L (8-78); Potassium 4.1 mmol/L (3.5-5.1); Protein, Total 6.6 g/dL (6.0-8.3); Sodium 141 mmol/L (136-145)
[2019-02-01] MEDS ORDERED: traMADol HCl 50 MG TAB ONE (11:09)
--- NOTE | 2019-02-01 11:51 | CT ---
CT abdomen noncontrast CT pelvis noncontrast: (Urolithiasis protocol) DATE: 02/01/2019 HISTORY: 78-year-old female with left lower quadrant abdominal pain, nausea, and emesis COMPARISON: 01/18/2019 TECHNIQUE: IV injection of iodinated contrast media: None Oral contrast media: None FINDINGS: Other than for urolithiasis, the lack of IV and oral contrast limits the evaluation. Furthermore, typ ical for this age group, there is a paucity of visceral fat, which further limits the evaluation of a CT without oral or IV contrast. New very small bilateral pleural effusions, right greater than left. No ascites or pneumoperitoneum. No small bowel dilation. Large number of diverticula throughout sigmo id and descending colon but no evidence of diverticulitis. Bilateral kidneys are slightly small in volume. Dilated extrarenal pelves bilaterally, more dilated than on previous CT, especially the left. The calyces are only minimally dilated, left greater than right. No renal, ureteral, or bladder calculus. Bladder has normal, thin king. Left hip replacement metallic prosthesis causes streak samra fact, degrading images of the pelvis. Appendix not identified. No overt evidence of appendicitis. Within limitations of noncontrast scan, no major pathology identified involving liver, spleen, pancre as, or adrenals. No abdominal aortic aneurysm. 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 Very small bilateral pleural effusions. 2. No urolithiasis or overt obstructive uropathy. 3. Descending and sigmoid colonic diverticulosis, but without evidence of diverticulitis. 4. Dilated extra renal pelves and minimal left hydronephrosis..
[2019-02-01 12:02] LABS: Bilirubin Negative (Negative); Blood, Urine Negative (Negative); Clarity Clear (Clear); Glucose, Urine (Dipstick) Normal (Negative); Leukocyte Negative Leu/uL (Negative); Nitrite Negative (Negative); Protein, Urine (Dipstick) Negative (Neg-Trace); Urobilinogen Normal mg/dL (Less than 2)
== END 2019-02-01 12:50 | disposition home or self-care (01) ==
LOC: ERS 10:01
DX: K57.30 Diverticulosis of large intestine without perforation or abscess without bleeding (principal); R11.2 Nausea with vomiting, unspecified; I11.0 Hypertensive heart disease with heart failure; I50.9 Heart failure, unspecified; E03.9 Hypothyroidism, unspecified; I48.91 Unspecified atrial fibrillation; F32.9 Major depressive disorder, single episode, unspecified; Z87.891 Personal history of nicotine dependence; Z79.899 Other long term (current) drug therapy; Z79.82 Long term (current) use of aspirin
CPT/HCPCS: 36415; 74176; 80053; 81003; 83690; 85025; 96361; 96374; J2405

== ENCOUNTER 2019-02-17 09:42 | Observation (INO) | payer MEDICARE ==
[2019-02-17 10:15] LABS: #Basophils 0.1 thou/uL (0.0-0.2); #Eosinphils 0.2 thou/uL (0.0-0.7); #Lymphocytes 1.3 thou/uL (1.20-3.40); #Monocytes 0.5 thou/uL (0.11-0.59); %Basophils 1.2 % (0.0-1.0); %Eosinophils 3.3 % (0.0-10.0); %Monocytes 8.1 % (0.0-10.0); %Neutrophils 66.3 % (42.0-75.0); Hemoglobin 10.7 g/dL (12.0-16.0); Mean Corpuscular HGB CONC 31.4 g/dL (32.0-36.0); Mean Corpuscular Hemoglobin 31.6 pg (27.0-31.0); Mean Platelet Volume 8.2 fL (7.4-10.4); Platelet Count 324 thou/uL (130-400); RBC Distribution Width 15.3 % (11.5-14.5); Red Blood Cell (RBC) Count 3.39 mill/uL (4.20-5.40)
[2019-02-17 10:26] LABS: ALT (SGPT) 14 U/L (8-55); AST (SGOT) 18 U/L (5-34); Albumin 4.1 g/dL (3.4-4.8); Alkaline Phosphatase 128 U/L (40-150); Anion Gap 16 mmol/L (10-20); BUN (Urea Nitrogen) 30 mg/dL (9.8-20.1); Calc. Creatinine Clearance 0 mL/min (70-130); Calcium 11.3 mg/dL (7.8-10.44); Carbon Dioxide 26 mmol/L (23-31); Chloride 104 mmol/L (98-107); Estimated GFR-MDRD 26; Globulin 3.5 g/dL (2.4-3.5); Glucose 147 mg/dL (83-110); Potassium 4.5 mmol/L (3.5-5.1); Protein, Total 7.6 g/dL (6.0-8.3); Sodium 141 mmol/L (136-145)
[2019-02-17] MEDS ORDERED: Furosemide 20 MG/2 ML VIAL ONE ×2 (10:51→11:11)
[2019-02-17] MEDS ORDERED: Aspirin Chewable 81 MG TAB ONE (11:11)
--- NOTE | 2019-02-17 11:14 | RAD ---
EXAM: Single view of the chest HISTORY: Shortness of breath/dyspnea COMPARISON: 01/27/2019 FINDINGS: Single view of the chest shows an enlarged cardiomediastinal silhouette. The patient is st atus post sternotomy. A cardiac monitoring device projects over the left chest wall. Increased interstitial markings are present. There is no evidence of consolidation, mass, or pleural effusion. The bones are unremarkable. IMPRESSION: Cardiomegaly
[2019-02-17 13:44] LABS: Troponin I Less than 0.010 ng/mL (< 0.028)
[2019-02-17] MEDS ORDERED: Acetaminophen 325 MG TAB PO PRN ×2 (14:24→20:30)
[2019-02-17] MEDS ORDERED: Ondansetron PF 4 MG/2 ML Vial IVP PRN (14:24)
[2019-02-17] MEDS ORDERED: Ondansetron ODT 4 MG TAB SL PRN ×2 (14:24→20:24)
[2019-02-17 14:35] VITALS: BMI 27.0
[2019-02-17 16:51] LABS: Troponin I Less than 0.010 ng/mL (< 0.028)
[2019-02-17] MEDS ORDERED: Ondansetron PF 4 MG/2 ML Vial SLOW IVP PRN (20:24)
[2019-02-17] MEDS ORDERED: Furosemide 20 MG/2 ML VIAL SLOW IVP SCH (20:30)
[2019-02-17] MEDS ORDERED: Apixaban 2.5 MG TAB PO SCH (21:00)
[2019-02-17] MEDS: Metoprolol Tartrate 25 MG TAB PO SCH (21:49)
[2019-02-17] MEDS ORDERED: Zolpidem Tartrate 5 MG TAB PO PRN (21:50)
[2019-02-17] MEDS ORDERED: Sodium Chloride 0.45% 1,000 ML IV SCH (22:00)
[2019-02-17] MEDS ORDERED: Apixaban 5 MG TAB PO SCH (22:00)
--- NOTE | 2019-02-18 02:16 | HP ---
CHIEF COMPLAINT: Feeling bad and short of breath. HISTORY OF PRESENT ILLNESS: This is an 78-year-old female patient of Dr. Milan Hilton, who came to the ER today because she was feeling bad, had not slept all night, had a pressure sensation like a bubble in the upper middle chest, and she was short of breath. She had just gotten out of the hospital at the end of December for a severe diverticulitis episode. She denies any GI problems at this point in time. She came in complaining of having not necessarily a palpitation sensation, but she felt bad and she has had problems with atrial fibrillation for a number of years and figured that was the problem. PAST MEDICAL HISTORY: Atherosclerotic cardiovascular disease, atrial fibrillation, hypertension, GERD, history of breast cancer, she had an incidental pancreatic mass found in the past that has been evidently found to be not neoplastic, hypothyroidism, chronic systolic and diastolic heart failure. PAST SURGICAL HISTORY: She had a cardiac valve repair in 2016 in [facility]. She states she had both valves repaired on the right side and left side. She also had a hip repair 2 years ago and she had an EGD and a colonoscopy in December of this year. ALLERGIES: STATES SHE HAS ALLERGIES TO VALIUM, BUT HER ALLERGY IS NOT A TRUE ALLERGY, IT MADE HER DEPRESSED SO IT IS NOT A TRUE ALLERGY. MEDICATIONS: Include; 1. Amiodarone. 2. Levothyroxine. 3. Lasix. 4. Aspirin. 5. Isosorbide. 6. Losartan. 7. Metoprolol. 8. Protonix. 9. Effexor. 10. Zinc. 11. Thiamine. 12. In the past, she had been on Xarelto, but it was held with her diverticulitis. SOCIAL HISTORY: She is a former smoker, has not smoked for many years. No alcohol use. No drug use. She lives in [place], [place] with her son. 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 FAMILY HISTORY: Father is and had a malignancy and hypertension. Her mother had heart disease and a stroke. She has a sister with breast cancer. Also, in her other siblings, there is diabetes and hypertension, and her son has diabetes and hypertension. REVIEW OF SYSTEMS: Other than in the HPI, she denies any headache, visual changes, or fever. She denies any trouble chewing or swallowing. No chills. Denies any cough or hemoptysis. Denies any nausea, vomiting, or hematemesis. Denies any changes to bowel or bladder habits. No hematochezia. No dysuria or hematuria. Denies any paresis or paresthesias. No weakness. Denies any dysarthria or other stroke-type symptoms. She denies any auditory or visual hallucinations or suicidal or homicidal ideations. PHYSICAL EXAMINATION: GENERAL: On exam, she is alert, awake, comfortable, in no acute distress. HEENT: Pupils are equal, round, and reactive to light and accommodation. Extraocular movements are intact. Mucous membranes are moist. NECK: Supple. No JVD. No bruits. No thyromegaly. No lymphadenopathy. CHEST: Lungs are clear to auscultation bilaterally. No rales, rhonchi, or wheezes. HEART: S1, S2 is slightly irregular, irregular rhythm with no murmurs, rubs, or gallops. No lifts, heaves, or thrills. ABDOMEN: Soft, flat, nondistended, nontender. Bowel sounds are hypoactive. GENITOURINARY: Deferred. EXTREMITIES: Good palpable pulses in all 4 extremities. No cyanosis, clubbing, or edema. NEUROLOGIC: Sensations is intact and motor is intact. Cranial nerves 2 through 12 are equal and symmetrical. No diminished weakness or diminished sensation. LABORATORY DATA: On her lab, white count is normal at 6. Her hemoglobin is at 10.5. Her hematocrit is at 34.0, platelets are 324. Her neutrophils at 66, lymphocytes at 21. Chemistry; sodium 141, potassium 4.5, chloride is 104, bicarb is 26, BUN is at 30, and creatinine is at 1.88, which is slightly elevated from where she has been in the past. Her creatinine earlier in the month was the same, however. GFR is down at 26, glucose is 147, calcium 11.3, magnesium is 1.7. Her iron is 93, TIBC is at 411. Her ferritin is at 43. AST is 18, ALT is 14. Troponin was undetectable and her beta natriuretic peptide was elevated at 1143. TSH was not checked. Lipase normal at 44. Urine was unremarkable. EKG shows atrial fibrillation with a left bundle branch block. ASSESSMENT: Congestive heart failure exacerbation with atrial fibrillation. Tracings show possible going in and out of flutter. Of note, she does have a loop rhythm recorder implanted in her chest. So, with known hypothyroidism, hypertension, hyperlipidemia, and elevated sugar tonight, I am not sure that sugar of 147, I am not sure if we have diabetes on board or not. So, we will diurese her. I am going to start her on some Eliquis and continue her home medications. We will recheck lab values in the morning and consult Cardiology. Job ID: [id number]
[2019-02-18 07:30] LABS: Anion Gap 14 mmol/L (10-20); BUN (Urea Nitrogen) 26 mg/dL (9.8-20.1); Calc. Creatinine Clearance 40 mL/min (70-130); Calcium 10.3 mg/dL (7.8-10.44); Carbon Dioxide 25 mmol/L (23-31); Chloride 105 mmol/L (98-107); Estimated GFR-MDRD 33; Glucose 83 mg/dL (83-110); Potassium 3.7 mmol/L (3.5-5.1); Sodium 140 mmol/L (136-145)
[2019-02-18] MEDS ORDERED: Furosemide 20 MG/2 ML VIAL SLOW IVP SCH (09:00)
[2019-02-18] MEDS: Apixaban 2.5 MG TAB PO SCH ×2 (09:17→20:35)
[2019-02-18] MEDS: Metoprolol Tartrate 25 MG TAB PO SCH ×2 (09:17→20:35)
[2019-02-18] MEDS: Losartan 25 MG TAB PO SCH (09:17)
--- NOTE | 2019-02-18 12:08 | CON ---
DATE OF CONSULTATION: HISTORY: Moriah Snowden is an 78-year-old white female, who was seen and evaluated by Dr. Reilly on January 28, 2019. At that time, she was admitted with atrial fibrillation with fast ventricular response. 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 Approximately 1-1/2 years ago, she underwent valve surgeries, apparently worked on the mitral and tricuspid valves. She had been hospitalized here in late December for GI bleeding. She was on Xarelto for atrial fibrillation that was discontinued. EGD and colonoscopy were unremarkable, that she had diverticulosis. She was again admitted on January 28, 2019 with increased shortness of breath and atrial fibrillation with fast ventricular response. Echocardiogram revealed ejection fraction of 50% to 55% with grade 1/3 diastolic dysfunction, mild left atrial enlargement, mild right atrial enlargement, mitral annular calcification, mild mitral regurgitation, aortic valve sclerosis, mild aortic regurgitation, and mild tricuspid regurgitation. With her rapid ventricular response, she was started on diltiazem drip and slowed down and then converted to sinus rhythm. She was diuresed and then discharged. Over the last 3 to 4 days, she has began to notice exertional dyspnea. Then, on the evening of February 16, she had difficulty lying flat in bed. She would have to get up to catch her breath. She did not try to sleep in a chair. She also noticed that her left leg was becoming more edematous. She then came to the emergency room for further evaluation. PAST MEDICAL HISTORY: Chronic atrial fibrillation, peptic ulcer disease, left breast cancer, hypothyroidism, former smoker, ejection fraction of 50% to 55%, hypothyroidism. OPERATIONS: Hip repair, cardiac valve surgery 1-1/2 years ago. She had EGD and colonoscopy recently, which were unremarkable, except for diverticulosis. MEDICATIONS: 1. Amiodarone 200 mg daily. 2. Colace 100 mg daily. 3. Ferrous sulfate 160 daily. 4. Furosemide 40 daily. 5. Levothyroxine 150 daily. 6. Cozaar 50 daily. 7. Metoprolol 50 b.i.d. 8. Protonix 40 daily. 9. Thiamine 100 mg daily. 10. Venlafaxine 150 daily. 11. Zinc sulfate 220 at bedtime. ALLERGIES: VALIUM. SOCIAL HISTORY: Former smoker. She does not drink alcohol. She lives in [place], [place] and her son lives here in the [facility] area. REVIEW OF SYSTEMS: Unremarkable. PHYSICAL EXAMINATION: VITAL SIGNS: Blood pressure 139/79, pulse 77, irregularly irregular. HEENT: PERRL. NECK: Supple. CHEST: Reveals crackles one-quarter of the way up the posterior lung franco. CARDIOVASCULAR: S1 and S2 normal without any S3, S4, murmurs. ABDOMEN: Normal bowel sounds without tenderness. EXTREMITIES: Revealed 1+ pretibial edema on the left. None on the right. IMAGING STUDIES: EKG revealed atrial fibrillation with a rate of 81, left axis deviation and left bundle-branch block. On the monitor, she has been in atrial fibrillation, although there are some episodes, where she is in an atypical flutter. Chest x-ray reveals cardiomegaly and chronic lung changes. LABORATORY DATA: Hemoglobin 10.7, hematocrit 34.0, white count 6000, platelets 324,000. Sodium 140, potassium 3.7, chloride 105, carbon dioxide 25, BUN 26, creatinine 1.53. BNP 965. Cardiac enzymes are unremarkable. TSH is normal. IMPRESSION: 1. Acute on chronic diastolic heart failure with rales on examination, paroxysmal nocturnal dyspnea, and left leg edema. 2. Atrial fibrillation with controlled ventricular response at this time. Apparently, she converted to sinus rhythm at last admission. 3. Gastrointestinal bleeding. 4. History of valve repair, probably on the mitral and tricuspid valves. 5. Hypertension. 6. History of breast cancer. 7. Hypothyroidism. PLAN: She was previously on Xarelto and had gastrointestinal bleeding. On this admission, she has been started on Eliquis 2.5 mg b.i.d. and she maybe able to tolerate that. However, it would be very quick to discontinue it, if she developed dark stools or had a drop in her hemoglobin. I would discontinue the IV saline and will increase her furosemide to 20 mg IV b.i.d. Her renal function will need to be monitored on a daily basis. I will have her loop recorder interrogated. Job ID: [id number] [facility]
--- NOTE | 2019-02-18 12:10 | PRG ---
DATE OF SERVICE: 02/18/2019 SUBJECTIVE: Today, she has no complaints, feels like she is breathing a little bit better. OBJECTIVE: VITAL SIGNS: Stable. O2 saturations 98% on 2 L. BP is 139/79. LUNGS: Essentially slight lower lobe rales bilaterally, mostly clear. HEART: S1 and S2 with no rubs, murmurs, or gallops. LABORATORY DATA: Show a creatinine improvement down to 1.53. Beta-natriuretic peptide improvement down to 965. TSH came back normal at 1.6. ASSESSMENT: Atrial fibrillation with congestive heart failure exacerbation. She will continue the diuresis. She is started on Eliquis last night and today. We will go further with any other plans based on Cardiology findings. Dr. Westfall will be back tomorrow. Job ID: [id number]
[2019-02-18] MEDS: Furosemide 20 MG/2 ML VIAL SLOW IVP SCH (13:43)
[2019-02-19 04:38] LABS: Hemoglobin 10.1 g/dL (12.0-16.0); Platelet Count 284 thou/uL (130-400)
[2019-02-19 04:49] LABS: Anion Gap 12 mmol/L (10-20); BUN (Urea Nitrogen) 32 mg/dL (9.8-20.1); Calc. Creatinine Clearance 33 mL/min (70-130); Calcium 10.6 mg/dL (7.8-10.44); Carbon Dioxide 29 mmol/L (23-31); Chloride 105 mmol/L (98-107); Estimated GFR-MDRD 27; Glucose 145 mg/dL (83-110); Potassium 3.6 mmol/L (3.5-5.1); Sodium 142 mmol/L (136-145)
[2019-02-19] MEDS: Furosemide 20 MG/2 ML VIAL SLOW IVP SCH (06:27)
[2019-02-19] MEDS: Losartan 25 MG TAB PO SCH (08:50)
[2019-02-19] MEDS: Apixaban 2.5 MG TAB PO SCH (08:50)
[2019-02-19] MEDS: Metoprolol Tartrate 25 MG TAB PO SCH (08:50)
--- NOTE | 2019-02-19 11:48 | EKG ---
Test Reason : Blood Pressure : / mmHG Vent. Rate : 065 BPM Atrial Rate : 075 BPM P-R Int : 000 ms QRS Dur : 158 ms QT Int : 494 ms P-R-T Axes : 000 -42 128 degrees QTc Int : 513 ms Atrial fibrillation Left axis deviation Left bundle branch block Abnormal ECG When compared with ECG of 17-FEB-2019 09:50, (Unconfirmed) No significant change was found Confirmed by DR. Curtis CAPELLAN ([id number]) on 02/19/2019 11:47:52 AM Referred By: Marc ANGEL Confirmed By:DR. Curtis CAPELLAN
--- NOTE | 2019-02-19 12:52 | PRG ---
DATE OF SERVICE: 02/19/2019 SUBJECTIVE: The patient is resting well, feeling more comfortable. No shortness of breath. She wants to go home. She notes no chest pain. No shortness of breath. She has restarted Eliquis at this time. OBJECTIVE: VITAL SIGNS: Temperature is 98.4, BP is 109/59, O2 saturation is 95%. LUNGS: Bilateral breath sounds. HEART: Reveals an irregularly irregular rhythm. EXTREMITIES: No clubbing, edema, or cyanosis noted. LABORATORY DATA: Her hemoglobin is 10.0, hematocrit is 32.4. Sodium 142, potassium 3.6, chloride 105, CO2 of 29, BUN 32, creatinine 1.82. IMPRESSION: Exacerbation of congestive heart failure. PLAN: The patient can be discharged home safely today. Follow home medications. Follow up in 1 week. Job ID: [id number]
--- NOTE | 2019-02-19 12:59 | DIS ---
DATE OF ADMISSION: 02/17/2019 DATE OF DISCHARGE: 02/19/2019 DISCHARGE DIAGNOSES: 1. Exacerbation of congestive heart failure. 2. History of atrial fibrillation, flutter. CONSULTING PHYSICIAN: Dr. Lehman. HOSPITAL SUMMARY: An 78-year-old female, who was admitted to the emergency room due to shortness of breath. She was seen and evaluated in the emergency room and found to have an exacerbation of congestive heart failure with atrial fibrillation/flutter that she has had previously. She underwent diuresis and was just stable by the time I was able to see her back on 02/19/2019, doing well without problem. DISCHARGE MEDICATIONS: She was discharged home on her home medicines, 1. Colace 100 mg daily. 2. Ferrous sulfate 160 daily. 3. Venlafaxine 150 mg daily. 4. Lasix 40 mg daily. 5. Cordarone 200 mg daily. 6. Losartan 50 mg daily. 7. Zinc sulfate 220 mg daily. 8. Thiamine 100 mg daily. 9. Pantoprazole 40 mg daily. 10. Metoprolol 50 mg b.i.d. 11. Levothyroxine 150 mg daily. 12. Additionally, she was restarted back on Eliquis 2.5 mg b.i.d. FOLLOWUP: She will be seen in followup with me in 1 week. Job ID: [id number]
[2019-02-19 16:03] VITALS: BP 113/72; TEMP 98.1
== END 2019-02-19 16:05 | disposition home or self-care (01) ==
LOC: ERS 09:42 → 2SW 14:22
PROVIDERS: ADMIT Family Medicine; ATTEND Family Medicine
DX: I11.0 Hypertensive heart disease with heart failure (principal); I50.42 Chronic combined systolic (congestive) and diastolic (congestive) heart failure; K21.9 Gastro-esophageal reflux disease without esophagitis; E03.9 Hypothyroidism, unspecified; Z79.82 Long term (current) use of aspirin; Z79.899 Other long term (current) drug therapy; Z87.891 Personal history of nicotine dependence; Z88.8 Allergy status to other drugs, medicaments and biological substances
CPT/HCPCS: 71045; 80048 ×2; 80053; 83880 ×2; 84443; 84484 ×2; 85014; 85018; 85025; 85049; 93005; 93798; 96361 ×3; 96374; 96376 ×3; 99285; G0378 ×4; 36415; 93010; J1940

== ENCOUNTER 2019-02-26 07:40 | Emergency (ER) | payer MEDICARE ==
--- NOTE | 2019-02-26 08:25 | RAD ---
EXAM: Single view of the chest HISTORY: Dyspnea COMPARISON: 02/17/2019 FINDINGS: Single view of the chest shows an enlarged but stable cardiomediastinal silhouette. The pa tient is status post sternotomy. A cardiac monitoring device projects over the left chest wall. There is no evidence of consolidation, mass, or pleural effusion. Degenerative changes are seen in th e spine and left shoulder IMPRESSION: Cardiomegaly without evidence of acute cardiopulmonary disease
[2019-02-26 08:28] LABS: #Eosinphils 0.2 thou/uL (0.0-0.7); #Monocytes 0.4 thou/uL (0.11-0.59); #Neutrophils 4.1 thou/uL (1.40-6.50); %Basophils 0.5 % (0.0-1.0); %Eosinophils 3.3 % (0.0-10.0); %Lymphocytes 18.1 % (21.0-51.0); %Monocytes 7.6 % (0.0-10.0); %Neutrophils 70.5 % (42.0-75.0); Hemoglobin 10.4 g/dL (12.0-16.0); Mean Corpuscular Hemoglobin 31.9 pg (27.0-31.0); Mean Corpuscular Volume 99.9 fL (78.0-98.0); Mean Platelet Volume 7.9 fL (7.4-10.4); Platelet Count 228 thou/uL (130-400); Red Blood Cell (RBC) Count 3.27 mill/uL (4.20-5.40); White Blood Cell (WBC) Count 5.8 thou/uL (4.8-10.8)
[2019-02-26] MEDS ORDERED: traMADol HCl 50 MG TAB ONE (08:45)
[2019-02-26 08:55] LABS: ALT (SGPT) 16 U/L (8-55); AST (SGOT) 21 U/L (5-34); Albumin 3.9 g/dL (3.4-4.8); Alkaline Phosphatase 130 U/L (40-150); Anion Gap 14 mmol/L (10-20); BUN (Urea Nitrogen) 32 mg/dL (9.8-20.1); Bilirubin, Total 1.2 mg/dL (0.2-1.2); Calc. Creatinine Clearance 0 mL/min (70-130); Calcium 11.1 mg/dL (7.8-10.44); Carbon Dioxide 22 mmol/L (23-31); Chloride 106 mmol/L (98-107); Estimated GFR-MDRD 32; Globulin 2.9 g/dL (2.4-3.5); Glucose 142 mg/dL (83-110); Potassium 4.1 mmol/L (3.5-5.1); Protein, Total 6.8 g/dL (6.0-8.3); Sodium 138 mmol/L (136-145)
== END 2019-02-26 09:27 | disposition home or self-care (01) ==
LOC: ERS 07:40
DX: I11.0 Hypertensive heart disease with heart failure (principal); I50.9 Heart failure, unspecified; F32.9 Major depressive disorder, single episode, unspecified; Z87.891 Personal history of nicotine dependence; Z79.899 Other long term (current) drug therapy; Z79.01 Long term (current) use of anticoagulants
CPT/HCPCS: 36415; 71045; 80053; 83880; 84484; 85025; 93005

== ENCOUNTER 2019-03-01 13:39 | Observation (INO) | payer MEDICARE ==
[2019-03-01 14:03] LABS: #Eosinphils 0.2 thou/uL (0.0-0.7); #Lymphocytes 0.9 thou/uL (1.20-3.40); #Monocytes 0.4 thou/uL (0.11-0.59); #Neutrophils 4.4 thou/uL (1.40-6.50); %Basophils 0.6 % (0.0-1.0); %Eosinophils 2.7 % (0.0-10.0); %Lymphocytes 15.6 % (21.0-51.0); %Monocytes 6.2 % (0.0-10.0); %Neutrophils 74.8 % (42.0-75.0); Hemoglobin 10.6 g/dL (12.0-16.0); Mean Corpuscular HGB CONC 32.3 g/dL (32.0-36.0); Mean Corpuscular Hemoglobin 31.5 pg (27.0-31.0); Mean Corpuscular Volume 97.6 fL (78.0-98.0); Mean Platelet Volume 7.7 fL (7.4-10.4); Platelet Count 260 thou/uL (130-400); RBC Distribution Width 15.1 % (11.5-14.5); Red Blood Cell (RBC) Count 3.35 mill/uL (4.20-5.40); White Blood Cell (WBC) Count 5.8 thou/uL (4.8-10.8)
--- NOTE | 2019-03-01 14:16 | RAD ---
PORTABLE CHEST: Date: 03/01/19 PROVIDED CLINICAL HISTORY: Shortness of breath. COMPARISON: 02/26/19. FINDINGS: Cardiac silhouette is unchanged in appearance. Median sternotomy changes and implanted loop recorder device are redemonstrated. No focal consolidation, pleural fluid, or pneumothorax apparent. Left shou lder deformity is redemonstrated. IMPRESSION: No evidence for acute cardiopulmonary process. POS: TPC
[2019-03-01 14:29] LABS: ALT (SGPT) 16 U/L (8-55); AST (SGOT) 19 U/L (5-34); Alkaline Phosphatase 146 U/L (40-150); Anion Gap 12 mmol/L (10-20); BUN (Urea Nitrogen) 33 mg/dL (9.8-20.1); Bilirubin, Total 0.9 mg/dL (0.2-1.2); CK (CPK) 60 U/L (29-168); Calc. Creatinine Clearance 0 mL/min (70-130); Carbon Dioxide 26 mmol/L (23-31); Chloride 104 mmol/L (98-107); Estimated GFR-MDRD 26; Globulin 3.5 g/dL (2.4-3.5); Glucose 123 mg/dL (83-110); Lipase 34 U/L (8-78); Potassium 4.2 mmol/L (3.5-5.1); Protein, Total 7.5 g/dL (6.0-8.3); Sodium 138 mmol/L (136-145)
[2019-03-01] MEDS ORDERED: Ondansetron ODT 4 MG TAB SL PRN (18:52)
[2019-03-01] MEDS ORDERED: Ondansetron PF 4 MG/2 ML Vial IVP PRN (18:52)
[2019-03-01] MEDS ORDERED: Acetaminophen 325 MG TAB PO PRN (18:52)
[2019-03-01] MEDS ORDERED: Furosemide 40 MG/4 ML VIAL SLOW IVP SCH ×2 (19:00→22:15)
--- NOTE | 2019-03-01 21:44 | HP ---
CHIEF COMPLAINT: Shortness of breath. HISTORY OF PRESENT ILLNESS: This is an 78-year-old female, patient of Dr. Milan Westfall, who was recently admitted in the hospital on 02/15, for CHF exacerbation with atrial fibrillation and discharged on 02/19. She was also seen in the emergency room on 02/26, for shortness of breath. Given short IV diuresis and sent home from the ER. At that point, her BNP was 1007. Today, her BNP in the ER is 886. States that she just has more troubles with her shortness of breath while at home and she is scared. PAST MEDICAL HISTORY: Positive for atherosclerotic cardiovascular disease, atrial fibrillation, hypertension, GERD, chronic systolic and diastolic heart failure, chronic mild renal insufficiency, history of breast cancer, also history of nonneoplastic pancreatic mass, and hypothyroidism. PAST SURGICAL HISTORY: Had a cardiac valve repair in 2016 at [facility]. Both valves, right and left side were repaired. She also has a hip repair 2 years ago, left hip. Also had an EGD and colonoscopy in December of this year, 2019. ALLERGIES: SHE HAS A HYPER-DEPRESSED SIDE EFFECT TO VALIUM, NOT A TRUE ALLERGY. MEDICATIONS: 1. Losartan 50 mg daily. 2. Eliquis 2.5 mg daily. 3. Metoprolol 25 mg twice a day. 4. Amiodarone 200 mg daily. 5. Effexor XR 150 mg daily. 6. Synthroid 150 mcg daily. 7. Protonix 40 mg daily. 8. Thiamine 100 mg daily. SOCIAL HISTORY: Former smoker. Has not smoked for many years. No alcohol use. No drug use. Lives in [place] with her son. 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 FAMILY HISTORY: Father had an unknown malignancy and hypertension. Mother had heart disease and stroke. Sister had breast cancer. There are also diabetes and hypertension in her family. REVIEW OF SYSTEMS: She denies any headache or visual changes, fevers or chills, trouble chewing, or swallowing. She does have some cough and some shortness of breath. Denies any hemoptysis. Denies any true chest pain. Feels the chest tightness. Denies any nausea or vomiting. Denies any hemoptysis. Denies any changes in bowel or bladder habits. No hematochezia. No melena. No bright red blood per rectum. Denies any dysuria or hematuria. Denies any dysarthria, trouble talking, speaking. She denies any paresthesias or dysesthesias or paresis. She also denies any auditory or visual hallucinations and suicidal or homicidal ideations. PHYSICAL EXAMINATION: VITAL SIGNS: Temp is 97.5, pulse 90, BP is 111/52, respirations of 24, saturating 94% on room air. GENERAL: Currently sitting up on the edge of the bed. Trouble breathing if she lies down, but no acute distress. HEENT: Essentially unremarkable. Pupils are equal, round, reactive to light and accommodation. Extraocular movements are intact. Mucous membranes are moist. NECK: Supple. No JVD. No bruits. No thyromegaly. No lymphadenopathy. LUNGS: Clear to auscultation bilaterally. No rales, rhonchi, or wheezes. HEART: S1, S2. No rubs, murmurs, or gallops. ABDOMEN: Soft, nontender, nondistended. No hepatosplenomegaly. Bowel sounds are hypoactive at this time. GENITOURINARY: Deferred. EXTREMITIES: Good palpable pulses in all four extremities. There is mild 1+ pitting edema in her lower extremities. NEUROLOGICAL: She is grossly intact. Cranial nerves 2 through 12 are equal and symmetrical. There are no focal neurological deficits. No weakness or sensory deficits noted. LABORATORY DATA: White count 5.8, hemoglobin is 10.6, which is unchanged. Hematocrit 32.7, platelet counts 260,000. Her sodium is 138, potassium is 4.2, chloride is 104, bicarb is 26, BUN is 33, creatinine is at 1.85, which is unchanged from 02/19. Her calcium is 11.0. Troponin is 0.11. Beta natriuretic peptide is 886, which is slightly down from when she was in the ER on 02/26 at a 1000. Lipase is 34. She had a chest x-ray done in the ER today, which showed no evidence of effusions or intrathoracic process. ASSESSMENT: Congestive heart failure exacerbation with known atrial fibrillation and heart valve repair in the last 18 months. PLAN: IV diuresis. Dr. Westfall will see in the morning and Dr. Reilly was her vp home health and Cardiology has been consulted. Job ID: [id number]
[2019-03-01] MEDS ORDERED: Zolpidem Tartrate 5 MG TAB PO SCH (22:15)
[2019-03-02 05:31] LABS: Anion Gap 14 mmol/L (10-20); BUN (Urea Nitrogen) 32 mg/dL (9.8-20.1); Calc. Creatinine Clearance 38 mL/min (70-130); Calcium 10.8 mg/dL (7.8-10.44); Carbon Dioxide 25 mmol/L (23-31); Chloride 104 mmol/L (98-107); Estimated GFR-MDRD 31; Glucose 107 mg/dL (83-110); Potassium 3.8 mmol/L (3.5-5.1); Sodium 139 mmol/L (136-145)
[2019-03-02] MEDS ORDERED: Levothyroxine 150 MCG TAB PO SCH (06:00)
[2019-03-02] MEDS ORDERED: Apixaban 2.5 MG TAB PO SCH (09:00)
[2019-03-02] MEDS ORDERED: Losartan 25 MG TAB PO SCH (09:00)
[2019-03-02] MEDS ORDERED: Amiodarone 200 MG TAB PO SCH (09:00)
[2019-03-02] MEDS ORDERED: Venlafaxine HCl XR 150 MG CAP PO SCH (09:00)
[2019-03-02] MEDS ORDERED: Furosemide 40 MG/4 ML VIAL SLOW IVP SCH (09:00)
[2019-03-02] MEDS ORDERED: Metoprolol Tartrate 25 MG TAB PO SCH (09:00)
[2019-03-02] MEDS ORDERED: Thiamine 100 MG TAB PO SCH (09:00)
[2019-03-02 12:49] VITALS: BP 91/55; TEMP 97.4
--- NOTE | 2019-03-02 14:08 | PRG ---
DATE OF SERVICE: 03/02/2019 SUBJECTIVE: Ms. Snowden is feeling much better. She says she has no longer had any chest pain or shortness of breath. She is feeling much better. She had a restful night's sleep. It was noted that she was stopped taking her Lasix on a daily basis last week. This probably was the process that exacerbated her congestive heart failure. OBJECTIVE: VITAL SIGNS: Temperature 97.4, pulse 106, BP 91/55. LUNGS: Clear. HEART: Reveals an irregularly irregular rhythm. No murmurs, gallops, or rubs. LABORATORY DATA: Sodium 139, potassium 3.8, chloride 104, CO2 of 25, BUN 32, creatinine 1.61. IMPRESSION: 1. Exacerbation of congestive heart failure. 2. History of atrial fibrillation. PLAN: I think the patient can safely be discharged today. She has been diuresed. She will restart Lasix. She does have an appointment with her vacation sales advisor, Dr. Reilly next week. DISCHARGE SUMMARY: The patient will be discharged home on her home medicines, which will include, 1. Pantoprazole 40 mg daily. 2. Lasix 40 mg daily. 3. Amiodarone 200 mg daily. 4. Metoprolol 25 mg b.i.d. 5. Eliquis 2.5 mg b.i.d. 6. daily. She will see me back in followup in 2 weeks. Job ID: [id number]
[2019-03-02] MEDS ORDERED: Zolpidem Tartrate 5 MG TAB PO SCH (21:00)
--- NOTE | 2019-03-05 16:32 | EKG ---
Test Reason : Blood Pressure : / mmHG Vent. Rate : 101 BPM Atrial Rate : 105 BPM P-R Int : 000 ms QRS Dur : 158 ms QT Int : 418 ms P-R-T Axes : 000 -46 128 degrees QTc Int : 542 ms Atrial fibrillation with rapid ventricular response Left axis deviation Left bundle branch block Abnormal ECG Confirmed by JJ GARCIA, SARTHAK ([id number]), news copy editor LING FULTON ([id number]) on 03/05/2019 4:32:24 PM Referred By: Confirmed By:SARTHAK GARDNER MD
== END 2019-03-02 14:01 | disposition home or self-care (01) ==
LOC: ERS 13:39 → 2SW 15:22
PROVIDERS: ADMIT Family Medicine; ATTEND Family Medicine
DX: I13.0 Hypertensive heart and chronic kidney disease with heart failure and stage 1 through stage 4 chronic kidney disease, or unspecified chronic kidney disease (principal); N18.9 Chronic kidney disease, unspecified; I50.43 Acute on chronic combined systolic (congestive) and diastolic (congestive) heart failure; I48.91 Unspecified atrial fibrillation; I25.10 Atherosclerotic heart disease of native coronary artery without angina pectoris; K21.9 Gastro-esophageal reflux disease without esophagitis; E03.9 Hypothyroidism, unspecified; I44.7 Left bundle-branch block, unspecified; Z87.891 Personal history of nicotine dependence; Z88.8 Allergy status to other drugs, medicaments and biological substances; Z79.01 Long term (current) use of anticoagulants; Z79.899 Other long term (current) drug therapy
CPT/HCPCS: 71045; 80048; 80053; 82550; 82962; 83690; 83880 ×2; 84484; 85025; 93005; 96374; 96376; 99285; G0378 ×3; 36415; 36416; J1940; Q0162

== ENCOUNTER 2019-04-01 08:49 | Observation (INO) | payer MEDICARE ==
[2019-04-01 09:20] LABS: #Eosinphils 0.2 thou/uL (0.0-0.7); #Lymphocytes 0.9 thou/uL (1.20-3.40); #Monocytes 0.4 thou/uL (0.11-0.59); %Basophils 0.6 % (0.0-1.0); %Eosinophils 2.4 % (0.0-10.0); %Lymphocytes 13.4 % (21.0-51.0); %Monocytes 6.3 % (0.0-10.0); %Neutrophils 77.4 % (42.0-75.0); Hemoglobin 10.2 g/dL (12.0-16.0); Mean Corpuscular HGB CONC 32.6 g/dL (32.0-36.0); Mean Corpuscular Hemoglobin 31.3 pg (27.0-31.0); Mean Platelet Volume 8.1 fL (7.4-10.4); Platelet Count 305 thou/uL (130-400); RBC Distribution Width 14.7 % (11.5-14.5); Red Blood Cell (RBC) Count 3.24 mill/uL (4.20-5.40); White Blood Cell (WBC) Count 6.5 thou/uL (4.8-10.8)
--- NOTE | 2019-04-01 09:21 | RAD ---
Exam: Chest one view portable: HISTORY: Shortness of breath COMPARISON: 03/01/2019 FINDINGS: Postop midline sternotomy. Surgical clips over the level left chest and axillary region. Borderline h eart size. Bilateral vascular congestion with some atherosclerotic ectatic changes of the aorta and great vessels. IMPRESSION: Overall stable-appearing chronic changes. Atherosclerosis.
[2019-04-01 09:41] LABS: ALT (SGPT) 25 U/L (8-55); AST (SGOT) 22 U/L (5-34); Alkaline Phosphatase 158 U/L (40-150); Anion Gap 17 mmol/L (10-20); BUN (Urea Nitrogen) 57 mg/dL (9.8-20.1); Bilirubin, Total 0.9 mg/dL (0.2-1.2); Calc. Creatinine Clearance 0 mL/min (70-130); Calcium 11.2 mg/dL (7.8-10.44); Carbon Dioxide 24 mmol/L (23-31); Chloride 102 mmol/L (98-107); Estimated GFR-MDRD 22; Globulin 3.5 g/dL (2.4-3.5); Glucose 210 mg/dL (83-110); Potassium 4.2 mmol/L (3.5-5.1); Protein, Total 7.5 g/dL (6.0-8.3); Sodium 139 mmol/L (136-145)
[2019-04-01] MEDS ORDERED: Furosemide 40 MG/4 ML VIAL ONE (10:09)
[2019-04-01] MEDS ORDERED: Ondansetron PF 4 MG/2 ML Vial ONE (10:09)
[2019-04-01] MEDS ORDERED: Morphine 2 MG/ML SYRINGE ONE (10:09)
--- NOTE | 2019-04-01 11:03 | CT ---
EXAM: Abdomen and pelvic CT scan without contrast: HISTORY: Left upper extremity pain, dysphagia, abdominal pain COMPARISON: 02/01/2019 Findings: Cardiomegaly with increased linear and interstitial markings bilaterally evidence for stable chronic change. Liver: Unremarkable. Gallbladder:Very minimal increased attenuation in the dependent portion of the gallbladder possibly s ludge or very tiny stones. No CT evidence for acute cholecystitis. Pancreas:Unremarkable Spleen:Unremarkable. Adrenal glands:Unremarkable. Kidneys:No evidence for acute calculus.Stable fullness of both right and left renal pelvis series and upper collecting systems when compared to the prior study.No solid or cystic mass. Colonic diverticulosis without acute diverticulitis. Fat-containing umbilical hernia. Left total hip replacement. No CT evidence for acute appendicitis. The urinary bladder is unremarkable. No abscess, adenopathy, or abnormal fluid collection within the abdomen or pelvis. IMPRESSION: Stable fullness of the right and left renal upper collecting systems without overt calculus. Other st able findings as above.
[2019-04-01 13:06] LABS: Troponin I 0.037 ng/mL (< 0.028)
[2019-04-01] MEDS ORDERED: Ondansetron ODT 4 MG TAB SL PRN (13:44)
[2019-04-01] MEDS ORDERED: Ondansetron PF 4 MG/2 ML Vial IVP PRN (13:44)
[2019-04-01] MEDS ORDERED: Acetaminophen 325 MG TAB PO PRN (13:44)
[2019-04-01 14:57] VITALS: BMI 27.5
[2019-04-01] MEDS ORDERED: HumaLOG 300 UNITS/3 ML VIAL SC PRN ×2 (15:50→15:53)
[2019-04-01 15:53] LABS: Troponin I 0.026 ng/mL (< 0.028)
[2019-04-01] MEDS ORDERED: Dextrose 5% in Water 1,000 ML IV PRN (15:53)
[2019-04-01] MEDS ORDERED: Dextrose 50% Abboject 50 ML SYRINGE IVP PRN (15:53)
[2019-04-01] MEDS ORDERED: Carvedilol 6.25 MG TAB PO SCH (17:00)
[2019-04-01] MEDS: Apixaban 2.5 MG TAB PO SCH (20:24)
[2019-04-01] MEDS ORDERED: Metoprolol Tartrate 25 MG TAB PO SCH (21:00)
[2019-04-01] MEDS ORDERED: Furosemide 40 MG TAB PO SCH (21:00)
[2019-04-01] MEDS ORDERED: Zinc Sulfate 220 MG CAP PO SCH (21:00)
--- NOTE | 2019-04-01 22:17 | HP ---
PRIMARY CARE PHYSICIAN: Milan Westfall MD CHIEF COMPLAINT: Chest pain and shortness of breath. HISTORY OF PRESENT ILLNESS: This is an 78-year-old female patient of Dr. Milan Westfall and Dr. Reilly with a past history of paroxysmal atrial fibrillation, cardiomyopathy, status post valve surgeries of her mitral and tricuspid valves in 2017 who has had several admissions for congestive heart failure exacerbation in December, January and most recently March 01, 2019. She was doing well following her last hospitalization. She followed up with Dr. Reilly, with Dr. Westfall's as well as with the [facility]. Her medications were adjusted. She had been doing well until about 3 days or 4 days ago when she developed some chest pains and shortness of breath that would come and go. They seemed to be worse with activity. She is now pain free. She presented to emergency department today with the above complaint. She was given IV Lasix and morphine with significant relief of her symptoms. Upon presenting to the emergency department, she did have an elevated BNP of 1125, which is slightly higher than her baseline over the past 3 months. She is now being admitted for further evaluation and treatment of her CHF. PAST MEDICAL HISTORY: 1. Atherosclerotic cardiovascular disease. 2. Paroxysmal atrial fibrillation. 3. Hypertension. 4. Gastroesophageal reflux disease. 5. Diastolic heart failure. 6. 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 7. History of breast cancer. 8. History of pancreatic mass. 9. Hypothyroidism. MEDICATIONS: Include: 1. Amiodarone 200 mg daily. 2. Thiamine 100 mg daily. 3. Zinc 220 mg daily. 4. Levothyroxine 150 mcg daily. 5. Metoprolol 25 mg b.i.d. 6. Venlafaxine 150 mg daily. 7. Colace 100 mg daily. 8. Eliquis 2.5 mg b.i.d. 9. Furosemide 40 mg b.i.d. PAST SURGICAL HISTORY: Mitral and tricuspid valve repair at [facility] in 2017 and left hip repair. PSYCHIATRIC HISTORY: History of depression. SOCIAL HISTORY: No alcohol. No drug use. Quit smoking several years ago. Has not smoked in over 10 years. FAMILY HISTORY: Noncontributory, but mother did have heart disease. Sister with breast cancer. REVIEW OF SYSTEMS: CONSTITUTIONAL: She denies any recent fevers, chills, or upper respiratory symptoms. HEENT: No headache, visual or hearing changes. CARDIAC: As per the history of present illness. She does have episodes of palpitations when she goes into atrial fibrillation. PULMONARY: Denies cough or hemoptysis. GI: Denies nausea, vomiting, or abdominal pain. She does have a history of a GI bleed several years ago, but she has been tolerating the Eliquis as long as she is on the Protonix. MUSCULOSKELETAL: Positive joint pains, worse in the left shoulder. PSYCHIATRIC: History of depression, stable on her Effexor. NEUROLOGIC: No weakness, seizures, or syncope. PHYSICAL EXAMINATION: VITAL SIGNS: Temperature 97.4, pulse of 56, respirations 18, blood pressure 118/57, and pulse ox is 95% on 2 L. GENERAL: She is awake and alert. No acute distress, but sleepy, falls asleep easily, but easy to arouse and awake and answers questions appropriately. HEENT: Mucosa is moist. NECK: Supple. No JVD, adenopathy, or bruits. HEART: Regular rate and rhythm with 2/6 systolic ejection murmur. LUNGS: Clear anteriorly with fine rales at the bases posteriorly. ABDOMEN: Soft. No hepatosplenomegaly. EXTREMITIES: 1 to 2+ pitting edema bilaterally. LABORATORY DATA: Sodium 139, potassium 4.2, chloride 102, CO2 of 24, BUN and creatinine 57 and 2.14 with a GFR of 22, which has been trending downward over the past 2 years. Serum glucose was 212, calcium 11.2, and BNP was elevated at 1125. Troponin I 0.010, 0.037 and 0.026. White blood cell count 6.5, hemoglobin and hematocrit 10.2 and 31.1, platelets of 305. IMAGING DATA: Chest x-ray showed no active disease. Stable vascular congestion. Postoperative midline sternotomy changes. Abdominal and pelvic CT done in the emergency department revealed no stone in the renal collecting systems, no masses. EKG reveals left bundle branch block. Per the emergency room physician, no change since her old. ASSESSMENT AND PLAN: This is an 78-year-old female with a history of cardiovascular disease, grade 1/3 diastolic dysfunction and mitral and tricuspid valvular disease status post repair, who presents with congestive heart failure exacerbation. 1. Congestive heart failure. We will increase her Lasix to 40 mg IV b.i.d. 2. Diastolic dysfunction. We will change her metoprolol to cardioselective beta esther with Coreg hopefully to improve her ionotropic effect. 3. Chronic kidney disease stage 4, likely worsened by her chronic diuretics. I will monitor closely. Will likely need outpatient followup with Nephrology. I will try to avoid nonsteroidal antiinflammatory drugs and try to avoid contrast insult on her kidneys. 4. History of gastrointestinal bleed. I will continue Protonix. 5. Paroxysmal atrial fibrillation. She is now rate controlled. We will continue amiodarone and Eliquis for anticoagulation. Job ID: [id number]
--- NOTE | 2019-04-01 22:51 | CON ---
DATE OF CONSULTATION: HISTORY OF PRESENT ILLNESS: The patient is an 78-year-old woman who presents with increasing dyspnea. The patient has a long history of diastolic congestive heart failure. She also has had a previous history of valvular repair. This was done by Dr. Vieyra in [place] several years ago. The patient has been admitted on several occasions with congestive heart failure. She also has paroxysmal atrial fibrillation and has been on anticoagulation therapy. The patient presented with increasing dyspnea. She denies having any chest discomfort. PAST MEDICAL HISTORY: 1. Status post valvular heart surgery. 2. Paroxysmal atrial fibrillation. 3. History of bradycardia. 4. Congestive heart failure secondary to diastolic dysfunction. 5. Hypertension. 6. History of pancreatic mass. 7. History of breast carcinoma. 8. Chronic renal failure. PAST SURGICAL HISTORY: Valve surgery and hip surgery. SOCIAL HISTORY: Nonsmoker. ALLERGIES: VALIUM. MEDICATIONS: See nursing list. SOCIAL HISTORY: Former smoker. FAMILY HISTORY: No strong family history of heart disease. REVIEW OF SYSTEMS: 10-point system otherwise unremarkable. PHYSICAL EXAMINATION: GENERAL: This is an obese woman, in no acute distress. VITAL SIGNS: Blood pressure 110/58. NECK: Showed no jugular venous distention. LUNGS: Have few crackles in both bases. HEART: Regular rate and rhythm. Normal S1, S2 with no murmurs. ABDOMEN: Nondistended. EXTREMITIES: Show moderate bilateral edema. VASCULAR: Radial pulse is 2+. LABORATORY RESULTS: Sodium was 139, potassium 4.2, chloride 102, bicarbonate 24 , BUN 57, creatinine 2.1, glucose is 210. Troponin 0.026. BNP 1125. White blood cell count 6.5, hemoglobin 10.2, hematocrit 31.1, and platelets 305. Her EKG revealed normal sinus rhythm with a first-degree AV block and left bundle-branch block. IMPRESSION: 1. Congestive heart failure secondary to diastolic dysfunction. 2. History of valvular heart repair. 3. Paroxysmal atrial fibrillation. 4. History of gastrointestinal hemorrhage. 5. Chronic renal insufficiency. 6. Marked bradycardia. This patient presents with diastolic heart failure. From a cardiac standpoint, she is markedly bradycardic. PLAN: At this time, we would recommend discontinuing the patient's beta- esther therapy. We would recheck the patient's thyroid level. The patient is being diuresed with Lasix. We will follow this patient with you through her hospitalization. Job ID: [id number] [facility]
[2019-04-02] MEDS ORDERED: Levothyroxine 150 MCG TAB PO SCH (06:00)
[2019-04-02] MEDS ORDERED: Furosemide 40 MG/4 ML VIAL SLOW IVP SCH (06:00)
[2019-04-02 08:54] LABS: Hemoglobin A1c 6.3 % (4.0-6.0)
[2019-04-02] MEDS ORDERED: Venlafaxine HCl XR 150 MG CAP PO SCH (09:00)
[2019-04-02] MEDS ORDERED: Docusate 100 MG CAP PO SCH (09:00)
[2019-04-02] MEDS ORDERED: Ferrous Sulfate 325 MG TAB PO SCH (09:00)
[2019-04-02] MEDS ORDERED: Thiamine 100 MG TAB PO SCH (09:00)
[2019-04-02] MEDS ORDERED: Amiodarone 200 MG TAB PO SCH (09:00)
[2019-04-02 09:06] LABS: Anion Gap 14 mmol/L (10-20); BUN (Urea Nitrogen) 50 mg/dL (9.8-20.1); Calc. Creatinine Clearance 31 mL/min (70-130); Calcium 10.5 mg/dL (7.8-10.44); Carbon Dioxide 28 mmol/L (23-31); Chloride 102 mmol/L (98-107); Estimated GFR-MDRD 24; Glucose 94 mg/dL (83-110); Potassium 3.9 mmol/L (3.5-5.1); Sodium 140 mmol/L (136-145)
[2019-04-02] MEDS: Apixaban 2.5 MG TAB PO SCH (09:24)
--- NOTE | 2019-04-02 11:48 | PRG ---
DATE OF SERVICE: 04/02/2019 SUBJECTIVE: Ms. Snowden is a doing well. She has no complaints of chest pain or shortness of breath. She is tolerating all oral intake. OBJECTIVE: VITAL SIGNS: Temperature 97.5, O2 saturations 100% on 2 L, 95% on room air, and blood pressure 130/69. LUNGS: Reveal bilateral breath sounds. HEART: Reveals an irregularly irregular rhythm with a grade 2/6 diastolic murmur, unchanged from previous exam. LABORATORY DATA: Creatinine is 1.97. Electrolytes are otherwise normal. IMPRESSION: Exacerbation of congestive heart failure, now stable. PLAN: The patient can be discharged home safely. Job ID: [id number]
[2019-04-02 12:07] VITALS: BP 138/82; TEMP 97.6
--- NOTE | 2019-04-02 12:35 | DIS ---
DATE OF ADMISSION: 04/01/2019 DATE OF DISCHARGE: 04/02/2019 DISCHARGE DIAGNOSIS: Exacerbation of congestive heart failure. HOSPITAL SUMMARY: The patient is an 78-year-old female, who has had multiple admissions for exacerbation of congestive heart failure. She was brought to the emergency room, complaining of a 3-day history of dyspnea by the time she arrived to the ER. She was not having any further symptomatology. She was admitted overnight for re-evaluation. Her cardiac enzymes were negative x3. She was given IV Lasix for diuresis by the next day. She was tolerating all oral intake. Her O2 saturations on room air were 95%. She was able to be discharged home on amiodarone 200 mg p.o. daily, Eliquis 2.5 mg b.i.d., ferrous sulfate 325 daily, levothyroxine 150 mcg daily, pantoprazole 40 mg daily, thiamine 100 mg daily, 150 mg daily, zinc sulfate 220 mg daily, furosemide 40 mg daily as well as metoprolol 25 mg b.i.d., which was actually stopped in the hospital. She will be seen in followup in my office in 1 week. Job ID: [id number]
== END 2019-04-02 12:24 | disposition home or self-care (01) ==
LOC: ERS 08:49 → 2NO 11:52
PROVIDERS: ADMIT Family Medicine; ATTEND Family Medicine
DX: I13.0 Hypertensive heart and chronic kidney disease with heart failure and stage 1 through stage 4 chronic kidney disease, or unspecified chronic kidney disease (principal); I50.31 Acute diastolic (congestive) heart failure; N18.4 Chronic kidney disease, stage 4 (severe); I48.0 Paroxysmal atrial fibrillation; I42.9 Cardiomyopathy, unspecified; I25.10 Atherosclerotic heart disease of native coronary artery without angina pectoris; E03.9 Hypothyroidism, unspecified; F32.9 Major depressive disorder, single episode, unspecified; Z87.891 Personal history of nicotine dependence; Z79.01 Long term (current) use of anticoagulants; Z79.899 Other long term (current) drug therapy; Z88.8 Allergy status to other drugs, medicaments and biological substances; Z98.890 Other specified postprocedural states
CPT/HCPCS: 71045; 74176; 80048; 80053; 82962 ×2; 83036; 83690; 83880 ×2; 84443; 84484 ×2; 85025; 93005; 96374; 96375; 96376; 99285; G0378 ×3; 36415; 36416; J1940; J2270; J2405

== ENCOUNTER 2019-04-11 12:35 | Outpatient (CLI) | payer MEDICARE ==
--- NOTE | 2019-04-11 14:37 | RAD ---
LUMBAR SPINE: 04/11/19 Four views. HISTORY: Back pain. Lumbar vertebrae maintain normal height and alignment. Moderate degenerative changes are noted. Loss of disc space at L1-2, L2-3, and L3-4 levels. L4-5 and L5-S1 disc spaces are relatively well preserve d. No evidence of spondylolisthesis or spondylolysis. IMPRESSION: Moderate degenerative changes of the lumbar spine. POS: OFF
--- NOTE | 2019-04-11 14:40 | RAD ---
TWO VIEW CHEST: 04/11/19 INDICATIONS: Dyspnea. COMPARISON: 04/01/19 Mild cardiomegaly with postop sternotomy change. Vascular and interstitial markings upper normal and stable. No focal infiltrate. No significant effusion. Surgical clips in the left axilla. Degenerative changes and deformity to the left humeral head. Anterior wedging of a mid thoracic vertebra. IMPRESSION: Stable chest findings when compared to 04/01/19. POS: OFF
== END 2019-04-11 12:36 | disposition home or self-care (01) ==
LOC: SCSRAD 12:35
PROVIDERS: ATTEND Family Medicine
DX: M54.5 Low back pain (principal); R06.09 Other forms of dyspnea; M47.816 Spondylosis without myelopathy or radiculopathy, lumbar region
CPT/HCPCS: 36415; 71046; 72110; 80053; 83880; 85025

== ENCOUNTER 2019-04-12 11:11 | Inpatient (IN) | payer MEDICARE ==
[2019-04-12 11:41] LABS: #Basophils 0.1 thou/uL (0.0-0.2); #Eosinphils 0.1 thou/uL (0.0-0.7); #Lymphocytes 0.8 thou/uL (1.20-3.40); #Monocytes 0.5 thou/uL (0.11-0.59); #Neutrophils 5.5 thou/uL (1.40-6.50); %Basophils 0.7 % (0.0-1.0); %Eosinophils 2.1 % (0.0-10.0); %Monocytes 6.8 % (0.0-10.0); %Neutrophils 78.4 % (42.0-75.0); Hemoglobin 11.1 g/dL (12.0-16.0); Mean Corpuscular HGB CONC 32.5 g/dL (32.0-36.0); Mean Corpuscular Hemoglobin 30.3 pg (27.0-31.0); Mean Corpuscular Volume 93.2 fL (78.0-98.0); Mean Platelet Volume 7.8 fL (7.4-10.4); Platelet Count 301 thou/uL (130-400); RBC Distribution Width 14.7 % (11.5-14.5); Red Blood Cell (RBC) Count 3.66 mill/uL (4.20-5.40)
--- NOTE | 2019-04-12 11:48 | RAD ---
XR Chest 1 View Portable History: Chest pain Comparison: Radiograph April 01, 2019 Findings: Heart size is enlarged. Pulmonary arteries are dilated. Mild pulmonary venous congestion an d early edema. Dysplastic left humeral head with subcortical fracture. Left axillary surgical clips. Small pleural effusions. Impression: Cardiomegaly with pulmonary edema and small pleural effusions indicating congestive heart failure.
[2019-04-12] MEDS ORDERED: Metoprolol Tartrate 5 MG/5 ML VIAL ONE (12:02)
[2019-04-12 12:04] LABS: ALT (SGPT) 16 U/L (8-55); AST (SGOT) 21 U/L (5-34); Albumin 4.2 g/dL (3.4-4.8); Alkaline Phosphatase 145 U/L (40-150); Anion Gap 14 mmol/L (10-20); BUN (Urea Nitrogen) 39 mg/dL (9.8-20.1); Bilirubin, Total 0.9 mg/dL (0.2-1.2); CK (CPK) 67 U/L (29-168); Calc. Creatinine Clearance 0 mL/min (70-130); Carbon Dioxide 28 mmol/L (23-31); Chloride 101 mmol/L (98-107); Estimated GFR-MDRD 23; Globulin 3.7 g/dL (2.4-3.5); Glucose 182 mg/dL (83-110); Potassium 3.4 mmol/L (3.5-5.1); Protein, Total 7.9 g/dL (6.0-8.3); Sodium 140 mmol/L (136-145)
--- NOTE | 2019-04-12 12:14 | CT ---
CT LUMBAR SPINE NONCONTRAST: Date: 04/12/19 INDICATION: Low back pain. FINDINGS: There is moderate multilevel degenerative change of the lumbar spine. No acute compression fracture. No significant subluxation. No retroperitoneal hematoma. There is diffuse vascular calcification of t he abdominal aorta and the visualized iliac vasculature. Incidental note of multiple colonic divertic chaparro. There is a mild S-shaped curvature of the lumbar spine. There is mild, chronic appearing irregul arity at the right L4 transverse process, and segmentation of the right L2 and L3 transverse processe s, which suggests sequelae from remote injury. There are nonspecific subcentimeter sclerotic foci of the sacrum which may represent bone islands. IMPRESSION: 1. No acute osseous abnormality of the lumbar spine identified. 2. Sequelae of remote injury suggested, involving multilevel right side lumbar spine transverse proc esses. POS: [facility]
[2019-04-12 12:20] LABS: CKMB 3.3 ng/mL (0-6.6)
[2019-04-12] MEDS ORDERED: Nitroglycerin 2% Ointment 1 INCH/1 GM Packet ONE (12:43)
[2019-04-12] MEDS ORDERED: Furosemide 40 MG/4 ML VIAL ONE (12:43)
[2019-04-12 13:14] LABS: Bacteria/HPF None Seen HPF (None Seen); Bilirubin Negative (Negative); Blood, Urine Negative (Negative); Clarity Clear (Clear); Glucose, Urine (Dipstick) Normal (Negative); Leukocyte 25 Leu/uL (Negative); Nitrite Negative (Negative); Protein, Urine (Dipstick) 20 mg/dL (Neg-Trace); RBC/HPF 0-3 HPF (0-3); Squamous Epithelial 0-3 HPF (0-3); Urobilinogen Normal mg/dL (Less than 2); WBC/HPF 0-3 HPF (0-3)
[2019-04-12] MEDS ORDERED: Dexamethasone 10 MG/ML VIAL ONE (13:58)
[2019-04-12 16:42] LABS: Troponin I 0.029 ng/mL (< 0.028)
[2019-04-12] MEDS ORDERED: Furosemide 40 MG/4 ML VIAL SLOW IVP SCH (19:30)
[2019-04-12 19:35] LABS: Troponin I 0.013 ng/mL (< 0.028)
[2019-04-12] MEDS: Apixaban 2.5 MG TAB PO SCH (20:14)
[2019-04-12] MEDS: Metoprolol Tartrate 25 MG TAB PO SCH (20:14)
[2019-04-12] MEDS: Furosemide 40 MG/4 ML VIAL SLOW IVP SCH (20:14)
[2019-04-13] MEDS: Levothyroxine 150 MCG TAB PO SCH (05:50)
[2019-04-13] MEDS: HYDROcodone/Acetaminophen 5/325 mg Tablet PO PRN (06:19)
[2019-04-13] MEDS: Potassium Chloride 20 MEQ TAB PO SCH (09:35)
[2019-04-13] MEDS: Furosemide 40 MG/4 ML VIAL SLOW IVP SCH (09:36)
[2019-04-13] MEDS: Amiodarone 200 MG TAB PO SCH (09:36)
[2019-04-13] MEDS: Apixaban 2.5 MG TAB PO SCH ×2 (09:36→21:10)
[2019-04-13] MEDS: Venlafaxine HCl XR 150 MG CAP PO SCH (09:37)
[2019-04-13] MEDS: Metoprolol Tartrate 25 MG TAB PO SCH ×2 (09:37→21:10)
--- NOTE | 2019-04-13 13:17 | PRG ---
DATE OF SERVICE: 04/13/2019 SUBJECTIVE: Ms. Snowden states she is feeling better. When I asked why she came to the hospital, she told me she was having back pain. She did not really mention that being that short of breath, although she states when her back was hurting, she feels short of breath. Nonetheless, she apparently was admitted due to congestive heart failure symptomatology and back pain. We were evaluating her back in the office 2 days prior. At this time, she states that she is feeling a little bit better. Her back is still hurting. OBJECTIVE: VITAL SIGNS: Temperature 97.3, blood pressure 108/69, O2 saturations 96% on 2 L, and pulse 76 and irregular. LUNGS: Reveal bilateral breath sounds. HEART: Reveals an irregularly irregular rhythm without murmur, gallops, or rubs. LABORATORY DATA: Troponin at 1900 hours on 04/12/2019 is normal. IMPRESSION: This is an 78-year-old female with multiple hospital admissions over the last 3 months. The patient really does not seem to know why she was here the day except for that complaining of back pain and associated symptoms of failure. PLAN: 1. We will consult Cardiology today to see if there is anything we can do to enhance her ability to deal with her heart failure situation. 2. Probably, we will need to look correction facility placement. I have discussed it briefly with the patient. I felt like she is not able to handle herself at home to avoid multiple hospitalizations. . Job ID: [id number]
--- NOTE | 2019-04-13 13:35 | HP ---
PRIMARY CARE PHYSICIAN: Dr. Milan Westfall CHIEF COMPLAINT: Back pain. HISTORY OF PRESENT ILLNESS: This is an 78-year-old female, patient of Dr. Milan Westfall, who came to the emergency room because her back pain was hurting her so bad, beyond which, she was able to control at home. She was actually in the hospital earlier in the month, discharged on the 02 of April for CHF exacerbation. She saw Dr. Westfall in clinic yesterday. He has ordered an x-ray of her back at that time. She states she had not run out of any medicines. it looks like she has not been on a low-sodium diet. PAST MEDICAL HISTORY: Positive for paroxysmal atrial fibrillation with atherosclerotic cardiovascular disease, diastolic heart failure with possible systolic heart failure, stage 3 chronic or possibly 4 chronic renal disease, acquired hypothyroidism, hypertension, gastroesophageal reflux disease with a history of breast cancer, and a history of a non-neoplastic pancreatic mass. MEDICATIONS: 1. Amiodarone 200 mg daily. 2. Levothyroxine 150 mcg daily. 3. Effexor XR 150 mg daily. 4. She had been on thiamine 100 mg daily. 5. Zinc 220 daily. 6. Eliquis 2.5 mg twice a day. 7. Lasix 40 mg twice a day, but she has only been taking it once a day. 8. Of note, previously, she was on metoprolol 25 mg twice a day, but after the last hospital stay that was discontinued. PAST SURGICAL HISTORY: Positive for mitral and tricuspid valve repairs at [facility] in 2017 and she has had a left hip repair in the past. PSYCHIATRIC HISTORY: History of depression. SOCIAL HISTORY: She quit smoking several years ago, more than 10 years ago. Prior to that, had been 1/2 to 1 pack a day for about 10 to 20 years. Denies any toxic habits. No alcohol or drug use. FAMILY HISTORY: Her mother had heart disease and she has a sister with breast cancer, who had a violent traumatic event recently. Several years ago, she was gunshot to the head. REVIEW OF SYSTEMS: She currently denies any fever, chills, trouble chewing, or swallowing. She denies any changes to vision. No headache. Denies any trouble hearing. She denies any dysphagia, trouble speaking, or trouble swallowing. She denies any cough or chest pain. She denies any problems with the reflux. She denies any abdominal pain, nausea, vomiting, hemoptysis, hematemesis, melena, or bright red blood per rectum. She denies any changes in bowel or bladder habits. No dysuria or hematuria. She denies any paresis or paresthesias. She has had a worsening of her back pain in her lumbar back. She denies any seizure activity. She denies any auditory or visual hallucinations. She denies any suicidal or homicidal ideations. PHYSICAL EXAMINATION: VITAL SIGNS: BP is 120/74. She is on by nasal cannula oxygen at . Respiration rate is 20, pulse of 115 mL, she is afebrile. HEENT: Essentially unremarkable. Pupils are equal, round, reactive to light and accommodation. His extraocular movements are intact. Mucous membranes are moist and pink. NECK: Supple. No JVD. No bruits. No lymphadenopathy. No thyromegaly. LUNGS: Essentially clear, possible mild rales in the bases. HEART: S1, S2 with irregularly irregular pulse consistent with atrial fibrillation. ABDOMEN: Soft, nontender, nondistended. No palpable masses. No hepatosplenomegaly. GENITOURINARY: Deferred. EXTREMITIES: Good palpable pulses in all 4 extremities. No edema, cyanosis, or clubbing. NEUROLOGIC: She is grossly intact. She remembers me from seeing her in her last hospital admission. Cranial nerves 2 through 12 are equal and symmetrical. She is alert and oriented x4. LABORATORY DATA: White count 7.0, H and H are 11 and 34 with 301,000 platelets, neutrophils 78%, lymphocytes 12%. Sodium is 140, potassium is 3.4, chloride is 101, bicarb is 28, BUN is 39, creatinine is 2.08 with a GFR 23. Glucose is 182. Beta natriuretic peptide is 623, but it is essentially the same as it has been in the last couple of days, elevated, but not increasing rapidly. Her troponin has been done 3 times a day was 0.036 and 0.028 and 0.029. Her urinalysis is negative. Her chest x-ray that was done showed cardiomegaly with pulmonary edema and small pleural effusions bilaterally. She had a lumbar CT done in the emergency room, which showed multilevel degenerative changes and arthritis especially on the right side of L2, L3, and L4 consistent with her areas of complaints of pain. ASSESSMENT: Congestive heart failure exacerbation, atrial fibrillation with possible rapid ventricular response, current pulse is 115 with exacerbation of lumbar arthritis. She also had hypoxia in the ER with O2 saturation in the mid 80s, so plan is admit . Add back the metoprolol that she previously was on cardiology to come back by and Dr. Westfall will see her in the morning. Job ID: [id number]
[2019-04-13] MEDS: ETODOLAC 300 MG PO SCH (15:48)
--- NOTE | 2019-04-13 16:30 | CON ---
DATE OF CONSULTATION: 04/13/2019 REASON FOR CONSULTATION: CHF and atrial fibrillation. HISTORY OF PRESENT ILLNESS: Ms. Snowden is a very pleasant 78-year-old white female, who comes to the hospital for lower back pain and shortness of breath. She was admitted for what appeared to be back pain. She fell [facility] the [facility], has a big bruise on her back as well. She states that when she gets the severe back pain, she feels short of breath as well. I have been following her for the last month or 2 for chronic atrial fibrillation and CHF exacerbations. She had to have her Lasix increased to 80 mg twice a day, which she took for about 2 weeks. She was diuresed really well at home and eventually was switched back to her home dose of 40 a day. Today, she comes in with back pain and she is volume overload with pulmonary edema and lower extremity edema. She has already been given some IV Lasix and is already doing better. When she is volume overload, she usually goes into rapid ventricular response and sure enough, her atrial fibrillation was in RVR this morning. However, after diuresis and feeling better, she is back to rate control in the upper 90s. Currently, she denies any chest pain, tightness, pressure. Shortness of breath is much better. Continues to have some back pain. PAST MEDICAL HISTORY: 1. Paroxysmal atrial fibrillation. 2. Diastolic heart failure. 3. Chronic kidney disease. 4. Hypothyroidism. 5. Hypertension. 6. GERD. 7. Breast cancer in the past. 8. Nonneoplastic pancreatic mass. PAST SURGICAL HISTORY: 1. Mitral and tricuspid valve repairs in 2017. 2. Left hip repair. OUTPATIENT MEDICATIONS: 1. Amiodarone 200 mg a day. 2. Levothyroxine 150 mcg a day. 3. Effexor. 4. Thiamine. 5. Zinc. 6. Eliquis 2.5 mg b.i.d. 7. Lasix 40 mg. She is only taking it once a day. 8. Metoprolol was discontinued in last admission as she was bradycardic at times. SOCIAL HISTORY: Quit smoking several years ago, over 10 years ago. No alcohol or drugs. FAMILY HISTORY: Mother with heart disease and breast cancer. REVIEW OF SYSTEMS: A 12-point review of systems was done and was all negative unless stated in history of present illness. PHYSICAL EXAMINATION: VITAL SIGNS: Temperature 97.6, pulse 98, respiratory rate 20, saturating 98% on room air, blood pressure 112/70. GENERAL: Awake, alert, oriented x3. No distress. HEENT: Normocephalic, atraumatic. NECK: Supple. LUNGS: Clear. CARDIOVASCULAR: S1 and S2. No S3 or S4. No murmurs. ABDOMEN: Soft. Positive bowel sounds. EXTREMITIES: Trace edema. SKIN: Warm and dry. LABORATORY DATA: Laboratory work was reviewed. UA was normal. Chemistries with a low potassium of 3.4, BUN of 39, creatinine of 2.08. Troponin was negative x4. BNP was 623. Albumin of 4.2. CBC with a white count of 7, hemoglobin 11, hematocrit of 34, and platelet count of 301. EKG was reviewed. Chest x-ray was reviewed. CT of the lumbar spine was reviewed, showed no acute osseous abnormality. ASSESSMENT: 1. Acute on chronic diastolic heart failure. 2. Paroxysmal atrial fibrillation, currently rate controlled, but was in RVR earlier this admission. 3. Low back pain. PLAN: 1. Agree with continued IV diuresis. Currently, she is on 40 IV daily. I would switch her back to her oral dose as I would expect her to be better controlled if she were to take Lasix at 40 mg twice a day orally at home. She has been only taking it once a day. 2. We will restart metoprolol for better rate control. 3. We will provide for an extra furosemide if she were to gain weight. She should take an extra dose of Lasix for that day or until the weight is down. 4. Would replace potassium with any extra dosages of Lasix that are given. 5. Most recent echo showed EF of 55% to 60% with grade 1 diastolic dysfunction. Thank you for letting us to participate in the care of your patient. We will follow. Job ID: [id number]
[2019-04-13 16:31] LABS: Hemoglobin 10.5 g/dL (12.0-16.0); Platelet Count 323 thou/uL (130-400)
[2019-04-14] MEDS: HYDROcodone/Acetaminophen 5/325 mg Tablet PO PRN ×2 (01:41→11:17)
[2019-04-14] MEDS: Levothyroxine 150 MCG TAB PO SCH (06:08)
[2019-04-14] MEDS: Apixaban 2.5 MG TAB PO SCH (08:35)
[2019-04-14] MEDS: Venlafaxine HCl XR 150 MG CAP PO SCH (08:35)
[2019-04-14] MEDS: Potassium Chloride 20 MEQ TAB PO SCH ×2 (08:35→21:40)
[2019-04-14] MEDS: Metoprolol Tartrate 25 MG TAB PO SCH (08:35)
[2019-04-14] MEDS: Amiodarone 200 MG TAB PO SCH (08:36)
[2019-04-14] MEDS: Furosemide 40 MG/4 ML VIAL SLOW IVP SCH (08:36)
--- NOTE | 2019-04-14 11:41 | PRG ---
DATE OF SERVICE: 04/14/2019 PRIMARY CARE PHYSICIAN: Dr. Milan Westfall. SUBJECTIVE: The patient is feeling some better. She denies chest pain or shortness of breath. She continues to have low back pain after a fall at [facility] living, but improves with pain medicine and heating pad. She states that she does not feel her heart racing anymore. She did have a discussion with Dr. Reilly yesterday about possible pacemaker placement prior to her discharge home or back to the senior living. OBJECTIVE: VITAL SIGNS: Temperature 97.7, pulse of 61 to 99, respirations 18, blood pressure 102/69, and pulse ox is 96% on room air. GENERAL: She is awake and alert, in no acute distress. Speech is clear with no conversational dyspnea. NECK: Supple. HEART: Regular rate and rhythm. LUNGS: Clear bilaterally. No wheeze, rales, or rhonchi. ABDOMEN: Soft. EXTREMITIES: No edema. LABORATORY DATA: BMP is pending to recheck her potassium level. ASSESSMENT AND PLAN: This is an 78-year-old female patient with a history of paroxysmal atrial fibrillation, congestive heart failure with diastolic dysfunction, admitted for low back pain, episode of atrial fibrillation with heart failure exacerbation. 1. Congestive heart failure, acute on chronic. She seems improved with diuresis. We will switch her back to oral Lasix 40 mg b.i.d. as recommended by Cardiology. I will recheck her potassium level today. 2. Cardiomyopathy with diastolic dysfunction. Dr. Reilly considering a pacemaker placement due to episodes of atrial fibrillation, atrial flutter. I will await his further plan. 3. Low back pain with lumbar contusion. We will continue heating pad, pain medicine, and physical therapy. 4. Disposition. The patient and son want the patient to go home with home health. We will make sure Case Management is following. Job ID: [id number]
[2019-04-14 11:49] LABS: Anion Gap 14 mmol/L (10-20); BUN (Urea Nitrogen) 45 mg/dL (9.8-20.1); Calc. Creatinine Clearance 27 mL/min (70-130); Carbon Dioxide 27 mmol/L (23-31); Chloride 101 mmol/L (98-107); Estimated GFR-MDRD 24; Glucose 114 mg/dL (83-110); Potassium 3.3 mmol/L (3.5-5.1); Sodium 139 mmol/L (136-145)
--- NOTE | 2019-04-14 11:54 | PDOC.CPN ---
- Subjective Date: 04/14/19 Time: 11:45 Interval history: Pt with intermittent fatigue and weakness. Continues with bradycarida on low dose BB - Review of Systems General: denies: fever/chills, weight/appetite/sleep changes, night sweats, fatigue Respiratory: reports: congestion, shortness of breath Cardiovascular: denies: chest pain, palpitation, edema, paroxysmal nocturnal dyspnea, orthopnea Gastrointestinal: denies: nausea, vomiting, diarrhea, constipation, abd pain, GI bleeding Neurological: denies: numbness, syncope, seizure, weakness - Objective Allergies/Adverse Reactions: Allergies Allergy/AdvReac Type Severity Reaction Status Date / Time diazepam [From Valium] Allergy Intermediate Verified 04/12/19 18:00 Visit Medications: Current Medications Hydrocodone Bitart/Acetaminophen ([place] 5/325) 1 tab PO Q6H PRN PRN Reason: Moderate Pain (4-6) Hydrocodone Bitart/Acetaminophen ([place] 5/325) 2 tab PO Q6H PRN PRN Reason: Severe Pain (7-10) Last Admin: 04/14/19 11:17 Dose: 2 tab Amiodarone HCl (Cordarone) 200 mg PO DAILY [facility] Last Admin: 04/14/19 08:36 Dose: 200 mg Apixaban (Eliquis) 2.5 mg PO BID [facility] Last Admin: 04/14/19 08:35 Dose: 2.5 mg Furosemide (Lasix) 40 mg PO 0900,1400 [facility] Levothyroxine Sodium (Synthroid) 150 mcg PO 0600 [facility] Last Admin: 04/14/19 06:08 Dose: 150 mcg Metoprolol Tartrate (Lopressor) 25 mg PO BID [facility] Last Admin: 04/14/19 08:35 Dose: 25 mg Pantoprazole Sodium (Protonix) 40 mg PO DAILY [facility] Last Admin: 04/14/19 08:35 Dose: 40 mg Potassium Chloride (K-Dur) 20 meq PO BID [facility] Sodium Chloride (Flush - Normal Saline) 10 ml IVF PRN PRN PRN Reason: Saline Flush Last Admin: 04/14/19 08:37 Dose: 10 ml Venlafaxine HCl (Effexor Xr) 150 mg PO DAILY [facility] Last Admin: 04/14/19 08:35 Dose: 150 mg Vital Signs & Weight: Vital Signs Temp Pulse Resp BP Pulse Ox 04/14/19 11:07 97.7 F 85 18 119/64 96 04/14/19 07:35 96 04/14/19 07:34 97.7 F 61 18 102/69 96 04/14/19 03:59 97.8 F 81 14 98/69 94 L Admit Weight 171 lb Weight 169 lb 12.8 oz - Physical Exam General: alert & oriented x3 HEENT: mucus membranes moist Neck: supple neck Cardiac: other (IRR IRR) Lungs: no wheezes, no rhonchi Neuro: grossly intact Abdomen: unremarkable - Labs Result Diagrams: 04/13/19 16:02 04/14/19 11:16 Troponin/CKMB CK-MB (CK-2) 3.3 ng/mL (0-6.6) 04/12/19 11:26 Troponin I 0.013 ng/mL (< 0.028) 04/12/19 19:00 - Telemetry Supraventricular conduction: atrial fibrillation - Assessment/Plan Assessment/Plan: 1. Acute on chronic diastolic CHF 2. Paroxysmal AF 3. HTN 4. Hx MV repair Improved overall. Reviewed noted. Patient remains in AF, but rate with better control. Per notes from last admission patient had "Marked bradycardia" and toprol was stopped. Unfortunately no actual pulse <50 was documented. It is possible she has underlying SSS. Will monitor closely. No changes today. RG Pt with continued intermittent low HR and likely symptomatic Pt may need pacer given intermittent runs of afib with RVR and bradycardia Stop NOAC and addlovenox
[2019-04-14] MEDS: Furosemide 40 MG TAB PO SCH (13:35)
[2019-04-14] MEDS ORDERED: Enoxaparin Sodium 80 MG/0.8 ML SYRINGE SC SCH (21:00)
[2019-04-15] MEDS: Levothyroxine 150 MCG TAB PO SCH (05:48)
[2019-04-15] MEDS: Furosemide 40 MG TAB PO SCH ×2 (09:25→14:11)
[2019-04-15] MEDS: Enoxaparin Sodium 80 MG/0.8 ML SYRINGE SC SCH (09:25)
[2019-04-15] MEDS: Potassium Chloride 20 MEQ TAB PO SCH ×2 (09:25→20:05)
[2019-04-15] MEDS: Venlafaxine HCl XR 150 MG CAP PO SCH (09:25)
[2019-04-15] MEDS: Amiodarone 200 MG TAB PO SCH (09:26)
--- NOTE | 2019-04-15 10:24 | PRG ---
DATE OF SERVICE: 04/15/2019 PRIMARY CARE PHYSICIAN: Dr. Milan Westfall. SUBJECTIVE: The patient is feeling fine. She continues to have some low back pain after her [place] the [place], but is improved. She states the pain is better when she is up and moving. She continues to have episodes of her heart racing. She felt like she went into atrial fibrillation last night. OBJECTIVE: VITAL SIGNS: Temperature 97.8, pulse of 85 to 95 and irregular, respirations 18, blood pressure 104/80, and pulse ox is 95% on room air. GENERAL: She is awake and alert. No acute distress. NECK: Supple. HEART: Irregularly irregular. LUNGS: Clear. ABDOMEN: Soft. BACK: With no point tenderness. She does have some ecchymotic lesions on her left upper arm. LABORATORY DATA: Sodium 139, potassium 3.3, chloride 101, CO2 of 27, BUN and creatinine 45 and 2.01 with a GFR of 24, which is her baseline. Accu-Cheks of 114, 175, and 196, calcium slightly high at 11.0. ASSESSMENT AND PLAN: This is an 78-year-old female with a history of paroxysmal atrial fibrillation, congestive heart failure with diastolic dysfunction, admitted for an episode of atrial fibrillation with rapid ventricular response. 1. Congestive heart failure, acute on chronic. Improved with diuresis. She is now on oral Lasix. I will follow her potassium level. 2. Cardiomyopathy with diastolic dysfunction. 3. Atrial fibrillation with episodes of rapid ventricular response. Cardiology considering pacemaker placement. 4. Low back pain with lumbar contusion. Continue supportive care with heating pad, pain medications, and physical therapy. 5. Disposition, hopefully home with home health depending on Cardiology's decision as far as the pacemaker. Job ID: [id number]
[2019-04-15] MEDS ORDERED: Acetaminophen 500 MG TAB PO PRN (10:52)
--- NOTE | 2019-04-15 10:52 | PDOC.CPN ---
- Subjective Date: 04/15/19 Time: 10:49 Interval history: c/o dizziness intermittent. Also c/o back pain - Review of Systems General: reports: fatigue Respiratory: denies: cough, congestion, shortness of breath, exercise intolerance Cardiovascular: denies: chest pain, palpitation, edema, paroxysmal nocturnal dyspnea, orthopnea Musculoskeletal: reports: pain (to left posterior back) Neurological: denies: numbness, syncope, seizure, weakness - Objective Allergies/Adverse Reactions: Allergies Allergy/AdvReac Type Severity Reaction Status Date / Time diazepam [From Valium] Allergy Intermediate Verified 04/12/19 18:00 Visit Medications: Current Medications Hydrocodone Bitart/Acetaminophen ([place] 5/325) 1 tab PO Q6H PRN PRN Reason: Moderate Pain (4-6) Hydrocodone Bitart/Acetaminophen ([place] 5/325) 2 tab PO Q6H PRN PRN Reason: Severe Pain (7-10) Last Admin: 04/14/19 11:17 Dose: 2 tab Amiodarone HCl (Cordarone) 200 mg PO DAILY [facility] Last Admin: 04/15/19 09:26 Dose: 200 mg Enoxaparin Sodium (Lovenox) 80 mg SC 0900 [facility] Last Admin: 04/15/19 09:25 Dose: 80 mg Furosemide (Lasix) 40 mg PO 0900,1400 [facility] Last Admin: 04/15/19 09:25 Dose: 40 mg Levothyroxine Sodium (Synthroid) 150 mcg PO 0600 [facility] Last Admin: 04/15/19 05:48 Dose: Not Given Pantoprazole Sodium (Protonix) 40 mg PO DAILY [facility] Last Admin: 04/15/19 09:25 Dose: 40 mg Potassium Chloride (K-Dur) 20 meq PO BID [facility] Last Admin: 04/15/19 09:25 Dose: 20 meq Sodium Chloride (Flush - Normal Saline) 10 ml IVF PRN PRN PRN Reason: Saline Flush Last Admin: 04/14/19 08:37 Dose: 10 ml Venlafaxine HCl (Effexor Xr) 150 mg PO DAILY [facility] Last Admin: 04/15/19 09:25 Dose: 150 mg Vital Signs & Weight: Vital Signs Temp Pulse Resp BP Pulse Ox 04/15/19 07:47 97.8 F 85 18 104/80 97 04/15/19 03:49 97.9 F 83 16 124/58 L 100 04/14/19 23:37 97.4 F L 95 24 H 124/71 99 Admit Weight 171 lb Weight 173 lb 14.4 oz - Physical Exam General: alert & oriented x3 HEENT: mucus membranes moist Neck: supple neck Cardiac: no murmur, other (IRR IRR) Lungs: clear to auscultation, no wheeze, rales, rhonchi Neuro: grossly intact Abdomen: unremarkable - Labs Result Diagrams: 04/13/19 16:02 04/14/19 11:16 Troponin/CKMB CK-MB (CK-2) 3.3 ng/mL (0-6.6) 04/12/19 11:26 Troponin I 0.013 ng/mL (< 0.028) 04/12/19 19:00 - Assessment/Plan Assessment/Plan: 1. Acute on chronic diastolic CHF 2. Paroxysmal AF 3. HTN 4. Hx MV repair 5. tachy-moise Patient with tachy-moise syndrome. Will need pacer. During last admission weeks ago was in NSR, so would benefit from dual-chamber. Hold toprol for now. On lovenox. NPO after midnight.
[2019-04-15] MEDS: HYDROcodone/Acetaminophen 5/325 mg Tablet PO PRN ×3 (11:19→20:05)
[2019-04-15 16:19] LABS: Hemoglobin 10.5 g/dL (12.0-16.0); Platelet Count 293 thou/uL (130-400)
[2019-04-16 06:01] LABS: Anion Gap 15 mmol/L (10-20); BUN (Urea Nitrogen) 39 mg/dL (9.8-20.1); Calc. Creatinine Clearance 33 mL/min (70-130); Calcium 10.8 mg/dL (7.8-10.44); Carbon Dioxide 26 mmol/L (23-31); Chloride 104 mmol/L (98-107); Estimated GFR-MDRD 30; Glucose 124 mg/dL (83-110); Potassium 3.7 mmol/L (3.5-5.1); Sodium 141 mmol/L (136-145)
[2019-04-16] MEDS: Levothyroxine 150 MCG TAB PO SCH (06:29)
[2019-04-16] MEDS: Potassium Chloride 20 MEQ TAB PO SCH ×2 (07:48→20:09)
[2019-04-16] MEDS: Furosemide 40 MG TAB PO SCH ×2 (07:48→15:55)
[2019-04-16] MEDS: Venlafaxine HCl XR 150 MG CAP PO SCH (07:49)
[2019-04-16] MEDS: Amiodarone 200 MG TAB PO SCH (08:07)
[2019-04-16] MEDS: HYDROcodone/Acetaminophen 5/325 mg Tablet PO PRN ×2 (08:07→17:10)
--- NOTE | 2019-04-16 08:29 | PRG ---
DATE OF SERVICE: 04/16/2019 SUBJECTIVE: Ms. Trimble is apparently going to have a pacemaker placed today. She is n.p.o. for now. By make up operator's note, she is having tachy-moise syndrome associated with atrial fibrillation, normal sinus rhythm. Otherwise, she noticed only complaints of upper back pain. OBJECTIVE: VITAL SIGNS: Her blood pressure is 146/77, temperature 98.3, and O2 saturations 94% on room air. LUNGS: Clear. HEART: Reveals an irregularly irregular rhythm without murmur, gallops, or rubs. IMPRESSION: Atrial fibrillation with tachycardia-bradycardia syndrome. PLAN: Apparently for pacemaker today. Job ID: [id number]
[2019-04-16] MEDS: Enoxaparin Sodium 80 MG/0.8 ML SYRINGE SC SCH (10:34)
[2019-04-16] MEDS ORDERED: Gentamicin 80 MG/2 ML VIAL ONE (11:20)
[2019-04-16] MEDS ORDERED: CEFAZOLIN 1 GM VIAL ONE (11:20)
[2019-04-16] MEDS ORDERED: Lidocaine 1% (PF) 30 ML VIAL ONE (11:22)
[2019-04-16] MEDS ORDERED: Midazolam HCl 2 mg/2 ml Vial ONE (12:14)
[2019-04-16] MEDS ORDERED: Lidocaine 1% w/Epinephrine 1:100K 20 ML VIAL ONE (12:41)
[2019-04-16 14:17] VITALS: BMI 25.1
--- NOTE | 2019-04-16 14:49 | RAD ---
PORTABLE CHEST ONE VIEW: 04/16/2019 1:25 p.m. HISTORY: Post cardiac device placement. COMPARISON: 04/12/2019 FINDINGS: There has been interval placement of a right-sided pacing device with bipolar leads in the right vent ricle. No pneumothoraces are identified. The remainder of the exam is otherwise stable. POS: MARY
[2019-04-17] MEDS: HYDROcodone/Acetaminophen 5/325 mg Tablet PO PRN (03:16)
[2019-04-17] MEDS: Levothyroxine 150 MCG TAB PO SCH (06:37)
[2019-04-17] MEDS: Potassium Chloride 20 MEQ TAB PO SCH (09:18)
[2019-04-17] MEDS: Amiodarone 200 MG TAB PO SCH (09:18)
[2019-04-17] MEDS: Furosemide 40 MG TAB PO SCH ×2 (09:19→14:45)
[2019-04-17] MEDS: Enoxaparin Sodium 80 MG/0.8 ML SYRINGE SC SCH (09:19)
[2019-04-17] MEDS: Venlafaxine HCl XR 150 MG CAP PO SCH (09:19)
--- NOTE | 2019-04-17 13:11 | PRG ---
DATE OF SERVICE: 04/17/2019 SUBJECTIVE: Ms. Trimble is status post pacemaker placement. She reports she is feeling good today. Reports no chest pain, no shortness of breath. OBJECTIVE: VITAL SIGNS: Temperature 97.9, blood pressure 162/83, and O2 saturations 96% on room air. LUNGS: Clear. HEART: Reveals an irregularly irregular rhythm without murmur, gallops, or rubs. The right upper chest shows a pacemaker site, it seems to be doing well. IMPRESSION: 1. Atrial fibrillation. 2. Congestive heart failure. 3. Status post pacemaker placement. 4. Tachycardia-bradycardia syndrome. PLAN: Continue current care. Possibly, she could be discharged as early as tomorrow. Job ID: [id number]
[2019-04-17 15:32] LABS: Platelet Count 333 thou/uL (130-400)
[2019-04-17 16:11] VITALS: BP 144/65; TEMP 96.2
--- NOTE | 2019-04-17 17:54 | PDOC.CPN ---
- Subjective Date: 04/17/19 Time: 17:52 Interval history: She is doing well. No chest pain. She remains in sinus. She had her pacer placed yesterday and she did well. - Review of Systems General: denies: fever/chills, weight/appetite/sleep changes, night sweats, fatigue Respiratory: denies: cough, congestion, shortness of breath, exercise intolerance Cardiovascular: denies: chest pain, palpitation, edema, paroxysmal nocturnal dyspnea, orthopnea Gastrointestinal: denies: nausea, vomiting, diarrhea, constipation, abd pain, GI bleeding Musculoskeletal: denies: pain, tenderness, stiffness, swelling, arthritis/ arthralgias Neurological: denies: numbness, syncope, seizure, weakness - Objective Allergies/Adverse Reactions: Allergies Allergy/AdvReac Type Severity Reaction Status Date / Time diazepam [From Valium] Allergy Intermediate Verified 04/12/19 18:00 Visit Medications: Current Medications Acetaminophen (Tylenol) 500 mg PO Q6H PRN PRN Reason: Muscle Pain Hydrocodone Bitart/Acetaminophen ([place] 5/325) 1 tab PO Q6H PRN PRN Reason: Moderate Pain (4-6) Last Admin: 04/15/19 20:05 Dose: 1 tab Hydrocodone Bitart/Acetaminophen ([place] 5/325) 2 tab PO Q6H PRN PRN Reason: Severe Pain (7-10) Last Admin: 04/17/19 03:16 Dose: 2 tab Amiodarone HCl (Cordarone) 200 mg PO DAILY [facility] Last Admin: 04/17/19 09:18 Dose: 200 mg Enoxaparin Sodium (Lovenox) 80 mg SC 0900 [facility] Last Admin: 04/17/19 09:19 Dose: 80 mg Furosemide (Lasix) 40 mg PO 0900,1400 [facility] Last Admin: 04/17/19 14:45 Dose: 40 mg Levothyroxine Sodium (Synthroid) 150 mcg PO 0600 [facility] Last Admin: 04/17/19 06:37 Dose: 150 mcg Pantoprazole Sodium (Protonix) 40 mg PO DAILY [facility] Last Admin: 04/17/19 09:19 Dose: 40 mg Potassium Chloride (K-Dur) 20 meq PO BID [facility] Last Admin: 04/17/19 09:18 Dose: 20 meq Sodium Chloride (Flush - Normal Saline) 10 ml IVF PRN PRN PRN Reason: Saline Flush Last Admin: 04/14/19 08:37 Dose: 10 ml Sodium Chloride (Flush - Normal Saline) 10 ml IVF Q12HR [facility] Last Admin: 04/17/19 09:22 Dose: 10 ml Sodium Chloride (Flush - Normal Saline) 10 ml IVF PRN PRN PRN Reason: Saline Flush Venlafaxine HCl (Effexor Xr) 150 mg PO DAILY [facility] Last Admin: 04/17/19 09:19 Dose: 150 mg Vital Signs & Weight: Vital Signs Temp Pulse Pulse Pulse Resp BP BP 04/17/19 15:59 96.2 F L 82 16 04/17/19 12:00 96.9 F L 83 16 04/17/19 09:59 79 81 127/67 141/71 H 04/17/19 08:00 04/17/19 07:46 97.1 F L 82 18 BP Pulse Ox 04/17/19 15:59 144/65 H 04/17/19 12:00 122/66 04/17/19 09:59 04/17/19 08:00 96 04/17/19 07:46 144/86 H 96 Admit Weight 171 lb Weight 168 lb 4.8 oz - Physical Exam General: alert & oriented x3, no apparent distress HEENT: mucus membranes moist, normocephaly Neck: supple neck, midline trachea Cardiac: regular rate and rhythm, no murmur, regular rate Lungs: clear to auscultation, normal breath sounds, no wheeze, rales, rhonchi Neuro: grossly intact, coordination normal Abdomen: active bowel sounds, soft, non-tender Skin: clear Musculoskeletal: normal range of motion, no pain - Labs Result Diagrams: 04/17/19 15:24 04/17/19 15:24 Troponin/CKMB CK-MB (CK-2) 3.3 ng/mL (0-6.6) 04/12/19 11:26 Troponin I 0.013 ng/mL (< 0.028) 04/12/19 19:00 - Telemetry Sinus rhythms and dysrhythmias: sinus rhythm - Assessment/Plan Assessment/Plan: 1. Acute on chronic diastolic CHF, improved. 2. Paroxysmal AF 3. HTN 4. Hx MV repair 5. Tachy-moise 6. S/P PPM placement. Dual chamber. PLAN: - May restart full anticoagulation with Eliquis 2.5 mg BID. - Lasix at 40 mg BID. - Metoprolol Succinate 25 mg daily. - May discharge home/ - Follow up with me in 2-4 weeks.
--- NOTE | 2019-04-17 18:11 | CCL ---
This is an 78-year-old female with tachy/moise syndrome. Was treated with medication for the tachycar nicholas. After the medication was given, she developed significant bradycardia. She has had intermittent atrial fibrillation which now she remains in sinus rhythm. She was advised to undergo a dual chamber pacemaker from [employer]. She also had a Linq implant or some type of implantable loop recorder in the past. It had been discus sed as to whether or not to remove this earlier and she agreed with Dr. Reilly prior to undergoing th e procedure to have the implantable loop recorder removed at the same time the pacemaker was implante d. She was taken to the cardiac asset availability leader where she underwent sterile preparation. She was prepped and dr sherry in the sterile fashion. Then using modified Seldinger technique the right subclavian vein was ca nnulated and two leads were placed into the right atrium and right ventricle. One in the atrium and o ne in the ventricle. The leads did require repositioning a couple of times and then they became dislo dged; however, final result showed good placement of the leads with good sensing and good thresholds. They were attached to the pacemaker which was a [employer] Violet MRI compatible device. The upper rat e was set at 120 and the lower rate was set at 60. There were no other difficulties of complications encountered. Please refer to the full dictated note in the chart. At the end of the procedure we addressed our attention to the previously implanted loop recorder. Smiley s was also prepped and draped in a sterile fashion. Then using local lidocaine anesthesia, the previo us site was anesthetized and then using careful technique, the device was easily explanted and the wo und was then closed using steri-strips and Dermabond. There was no complications or difficulties enco untered during the procedure. For the procedure she was given 1 mg of IV versed and throughout the pr ocedure she was monitored by an independent observer present for heart rate, blood pressure and O2 sa turation. These remained stable. Total sedation time was 58 minutes.
--- NOTE | 2019-04-18 16:44 | EKG ---
Test Reason : Blood Pressure : / mmHG Vent. Rate : 081 BPM Atrial Rate : 081 BPM P-R Int : 212 ms QRS Dur : 164 ms QT Int : 492 ms P-R-T Axes : 114 -28 118 degrees QTc Int : 571 ms Sinus rhythm with 1st degree A-V block Left bundle branch block Abnormal ECG When compared with ECG of 12-APR-2019 12:41, (Unconfirmed) RI interval has increased Confirmed by DR. Breanna KNOX ([id number]) on 04/18/2019 4:43:50 PM Referred By: GEORGINA Confirmed By:DR. Breanna KNOX
== END 2019-04-17 20:00 | disposition home health service (06) | DRG 242 ==
LOC: ERS 11:11 → 2NO 15:55
PROVIDERS: ADMIT Family Medicine; ATTEND Family Medicine
PROC: 0JH606Z Insertion of Pacemaker, Dual Chamber into Chest Subcutaneous Tissue and Fascia, Open Approach (ICD-10-PCS; principal; 2019-04-16)
PROC: 02H63JZ Insertion of Pacemaker Lead into Right Atrium, Percutaneous Approach (ICD-10-PCS; 2019-04-16)
PROC: 02HK3JZ Insertion of Pacemaker Lead into Right Ventricle, Percutaneous Approach (ICD-10-PCS; 2019-04-16)
PROC: 0JPT32Z Removal of Monitoring Device from Trunk Subcutaneous Tissue and Fascia, Percutaneous Approach (ICD-10-PCS; 2019-04-16)
DX: I13.0 Hypertensive heart and chronic kidney disease with heart failure and stage 1 through stage 4 chronic kidney disease, or unspecified chronic kidney disease (principal); I50.33 Acute on chronic diastolic (congestive) heart failure; I48.0 Paroxysmal atrial fibrillation; I42.9 Cardiomyopathy, unspecified; I49.5 Sick sinus syndrome; I25.10 Atherosclerotic heart disease of native coronary artery without angina pectoris; E03.9 Hypothyroidism, unspecified; M46.86 Other specified inflammatory spondylopathies, lumbar region; F32.9 Major depressive disorder, single episode, unspecified; Z87.891 Personal history of nicotine dependence; Z79.899 Other long term (current) drug therapy
CPT/HCPCS: 33208; 33286; 36415; 36416; 71045; 71046; 72110; 72131; 80048; 80053; 81003; 81015; 82550; 82553; 82565; 83880; 84484; 85014; 85018; 85025; 85049; 87086; 93005; 93010; 93798; 96374; 96375; 99152; 99153; C1785; C1898; J0690; J1100; J1580; J1650; J1940; J2001; J2250; J3370

== ENCOUNTER 2020-07-30 06:35 | Inpatient (IN) | payer MEDICARE ==
--- NOTE | 2020-07-30 07:35 | RAD ---
Chest one view HISTORY: Fall. Chest pain. COMPARISON: 03/03/2020. FINDINGS: Cardiac silhouette is magnified by projection. Pulmonary vasculature are unremarkable. Mediastinum is midline with postoperative changes, aortic calcification, and a dual lead right subcla vian cardiac electronic device. No lobar consolidation or evidence of pneumothorax. Hemostasis clips over the right axilla. Prominent degenerative changes left shoulder with extensive cortical remodeling of the humeral head. IMPRESSION : Chronic-type findings are stable. No acute abnormalities are demonstrated.
[2020-07-30] MEDS ORDERED: Acetaminophen 500 MG TAB ONE (07:40)
[2020-07-30] MEDS ORDERED: traMADol HCl 50 MG TAB ONE (07:40)
[2020-07-30 07:50] LABS: INR-International Normal Ratio 0.9; PTT 23.8 sec (22.9-36.1); Prothrombin Time 12.8 sec (12.0-14.7)
[2020-07-30 07:59] LABS: #Basophils 0.1 thou/uL (0.0-0.2); #Eosinphils 0.3 thou/uL (0.0-0.7); #Lymphocytes 1.5 thou/uL (1.20-3.40); #Monocytes 0.5 thou/uL (0.11-0.59); #Neutrophils 5.3 thou/uL (1.40-6.50); %Basophils 0.7 % (0.0-1.0); %Eosinophils 3.8 % (0.0-10.0); %Lymphocytes 19.3 % (21.0-51.0); %Monocytes 6.5 % (0.0-10.0); %Neutrophils 69.8 % (42.0-75.0); Hemoglobin 10.7 g/dL (12.0-16.0); Mean Corpuscular HGB CONC 34.1 g/dL (32.0-36.0); Mean Corpuscular Hemoglobin 32.3 pg (27.0-31.0); Mean Corpuscular Volume 94.6 fL (78.0-98.0); Mean Platelet Volume 5.2 fL (7.4-10.4); Platelet Count 316 thou/uL (130-400); RBC Distribution Width 12.3 % (11.5-14.5); Red Blood Cell (RBC) Count 3.32 mill/uL (4.20-5.40); White Blood Cell (WBC) Count 7.6 thou/uL (4.8-10.8)
[2020-07-30] MEDS ORDERED: Ketamine 50 MG/ML (10ML VIAL) ONE (08:00)
[2020-07-30 08:04] LABS: ALT (SGPT) 8 U/L (8-55); AST (SGOT) 15 U/L (5-34); Albumin 4.2 g/dL (3.4-4.8); Alkaline Phosphatase 125 U/L (40-110); Anion Gap 16 mmol/L (10-20); BUN (Urea Nitrogen) 45 mg/dL (9.8-20.1); Bilirubin, Total 0.3 mg/dL (0.2-1.2); CK (CPK) 38 U/L (29-168); Calc. Creatinine Clearance 0 mL/min (70-130); Calcium 10.5 mg/dL (7.8-10.44); Carbon Dioxide 30 mmol/L (23-31); Chloride 95 mmol/L (98-107); Globulin 3.8 g/dL (2.4-3.5); Glucose 137 mg/dL (83-110); Sodium 137 mmol/L (136-145)
[2020-07-30] MEDS ORDERED: Ondansetron PF 4 MG/2 ML Vial IVP PRN (08:08)
[2020-07-30] MEDS ORDERED: Dextrose 5% in Water 1,000 ML IV PRN (08:08)
[2020-07-30] MEDS ORDERED: Dextrose 50% Abboject 50 ML SYRINGE SLOW IVP PRN (08:08)
[2020-07-30] MEDS ORDERED: hydrALAZINE 20 MG/ML VIAL SLOW IVP PRN (08:08)
[2020-07-30] MEDS ORDERED: CEFAZOLIN 2 GM in Premix Bag 1 BAG IVPB SCH (08:15)
[2020-07-30 08:25] LABS: Phosphorus 3.9 mg/dL (2.3-4.7)
--- NOTE | 2020-07-30 08:48 | CON ---
DATE OF CONSULTATION: 07/30/2020 REQUESTING PHYSICIAN: Te Gonzales DO CONSULTING PHYSICIAN: Rosalio Li MD REASON FOR CONSULTATION: Left ankle fracture. HISTORY OF PRESENT ILLNESS: This is an 79-year-old female who was walking in her kitchen early this morning when she dropped something and went to pick it up and her leg twisted and gave out. She presented to our facility with an obvious deformity to the left ankle. Workup in the emergency department revealed a left ankle fracture dislocation for which we have been consulted. She denies any other injuries. No head trauma. No loss of consciousness. Denies any numbness or tingling. PAST MEDICAL HISTORY: Significant for hypertension, atrial fibrillation for which she is on aspirin, congestive heart failure, unknown pancreatic tumor, a gastric ulcer, left breast cancer with mastectomy, hypothyroid. PAST SURGICAL HISTORY: Mastectomy, left side; heart valve surgery; a partial hip replacement; and "25 lymph nodes removal from left side." SOCIAL HISTORY: The patient lives at home with her son. She denies any alcohol or drug use. She is a former smoker, quit over 10 years ago. Currently, she is an independent ambulator, but does state that she has been falling more frequently at home. FAMILY HISTORY: Reviewed and noncontributory. REVIEW OF SYSTEMS: Ten-point review of systems conducted and otherwise negative except for stated above. PHYSICAL EXAMINATION: CURRENT VITAL SIGNS: Show a blood pressure 162/75, pulse of 63, respiratory rate of 18, temperature 98.3, pain level of 5, O2 saturation of 98% on room air. GENERAL: The patient is awake and alert. She is pleasant and cooperative. She is oriented x3. She is in no apparent distress. HEENT: Head is normocephalic and atraumatic. NECK: Supple. Trachea midline. Breathing is nonlabored. EXTREMITIES: All 4 extremities were evaluated. The left lower extremity has an obvious deformity of the ankle. She is able to move her toes. Sensation is intact. Capillary refill is 3 seconds. Knee and hip look atraumatic. The range of motion not assessed on this left side. Right lower extremity and bilateral upper extremities, she is able to move these without any difficulty. No signs of trauma. DIAGNOSTIC DATA: X-ray evaluation reviewed today including views of the patient's left ankle show evidence of a trimalleolar ankle fracture with a lateral dislocation of the talus. There does not appear to be a syndesmotic disruption. Of note, there is some hardware in her metatarsals. ASSESSMENT: Left ankle fracture dislocation. PLAN: At this time, the patient will be admitted to the Trauma Service. I have discussed with the ER physician over doing a reduction in a well-padded splint. We will plan for surgical intervention tomorrow given the current schedule in the operating room today. We will plan for n.p.o. after midnight. Given the patient's extensive cardiac history, this will also allow some time if needed for further cardiac clearance for surgery. Plan of care discussed with her today at bedside. She is amenable to this. Following surgery, she may need a short course of rehab given her deconditioning recently at home and frequent falls. She does live with family, but seems to be falling more recently. We will plan for surgery tomorrow morning. Job ID: [id number]
[2020-07-30 08:51] LABS: SARS-CoV-2 NAA Rapid Test Not Detected (NotDetected)
[2020-07-30] MEDS: Famotidine 20 MG TAB PO SCH ×2 (09:00→21:08)
[2020-07-30] MEDS ORDERED: Acetaminophen 325 MG TAB PO PRN (10:14)
[2020-07-30] MEDS ORDERED: Sodium Chloride 0.9% 1,000 ML IV SCH ×2 (10:15→23:55)
--- NOTE | 2020-07-30 11:12 | RAD ---
LEFT TIBIA AND FIBULA 2 VIEWS: HISTORY: Injury with pain. FINDINGS: Fracture and dislocation at the ankle as described on ankle film. Displaced fractures of the lateral malleolus, posterior malleolus, and medial malleolus with dislocation of the tibiotalar joint. Proximal and mid tibia fibula are intact. POS: AGW
[2020-07-30 11:16] VITALS: BMI 26.7
--- NOTE | 2020-07-30 11:16 | RAD ---
LEFT ANKLE 3 VIEWS: HISTORY: Injury with pain. FINDINGS: Fracture dislocation at the ankle. Trimalleolar displaced fractures. Displaced fractures of the med ial malleolus, lateral malleolus, and posterior malleolus. Dislocation of the tibiotalar joint. Sof t tissue swelling. POS: AGW
--- NOTE | 2020-07-30 13:36 | RAD ---
RADIOGRAPH LEFT ANKLE TWO VIEWS: 07/30/20 at 8:34 a.m. HISTORY: 79-year-old female with acute, traumatic trimalleolar left ankle fracture/subluxation/dislocation, fi rst reduction attempt. COMPARISON: 07/30/20 at 7:02 a.m. FINDINGS: The severe lateral subluxation of the talus relative to the tibia has been reduced. The medial malleo lar fracture, which was severely displaced, has slightly improved alignment, although the distal frag ment still remains at least 100% bone width medially displaced relative to the tibia. The lateral malleolar significantly displaced and angulated fracture has been reduced, such that no d isplacement is currently present in the transverse dimension. There is a half shaft width posterior d isplacement of the distal lateral malleolar fragment. No longer any angulation. Posterior malleolar fracture fragment is in nearly anatomical alignment. The ankle mortise is narrowed superolaterally and widened superomedially. There is a posterior splint . IMPRESSION: Status post reduction of trimalleolar fracture/dislocation/subluxation, with interval improvement in alignment, but significant displacement of medial malleolar fracture and moderate displacement of lat eral malleolar fracture, remain. POS: JIN
[2020-07-30] MEDS ORDERED: traMADol HCl 50 MG TAB PO PRN ×3 (16:28→21:21)
--- NOTE | 2020-07-30 16:39 | RAD ---
Right wrist 3 views HISTORY: Fall. Pain. FINDINGS: Scaphoid waist is intact. Old ununited ossific avulsion from the tip of the ulnar styloid 0 .3 cm. Mild ulnar negative variant. Severe osteoarthritic changes at the first carpometacarpal joint with complete loss of joint space an d mild lateral subluxation. No acute fracture or dislocation. IMPRESSION : No acute osseous abnormalities are demonstrated.
--- NOTE | 2020-07-30 16:40 | RAD ---
Right forearm 2 views HISTORY: Fall. Injury. FINDINGS: Radius and ulna are intact. Old ununited ossific avulsion from the ulnar styloid again demo nstrated. No acute fracture or dislocation. Severe osteoarthritic changes at the first carpometacarpal joint better visualized on dedicated wrist exam. IMPRESSION : No acute osseous abnormalities are demonstrated.
--- NOTE | 2020-07-30 18:09 | HP ---
REQUESTING PHYSICIAN: Te Gonzales DO PRIMARY CARE PHYSICIAN: Milan Westfall MD CONSULTS: Orthopedic Surgery, Dr. Li. CHIEF COMPLAINT: Mechanical fall, left ankle pain. HISTORY OF PRESENT ILLNESS: This is an 79-year-old female who lives at home with family, who has a significant past medical history of diastolic and systolic heart failure; chronic kidney disease, stage 4; paroxysmal atrial fibrillation; hypothyroidism; hypertension; GERD. The patient was at home trying to get something out of the refrigerator when she twisted her ankle causing her to fall. The patient denies hitting her head or losing consciousness. The patient denies feeling weak, dizzy, shortness of breath, or having chest pain. The patient does report she gets dizzy frequently when up and moving, but was not sure if this is what caused her to fall. The patient was recently in the hospital in March for atrial fibrillation, in which she had an echocardiogram done showing ejection fraction of 20% to 25%. According to the patient she stopped taking her blood thinner atrial fibrillation approximately 2 weeks ago and is only on aspirin. Her son reports she stated taking Plavix on 07/07/20. The patient does report getting short of breath with ambulation, which is not new, states this has been ongoing for over 6 months. The patient was evaluated in the emergency room and found to have a left ankle fracture and dislocation. Her ankle was reduced and splinted in the emergency room. The patient last had any food or oral intake at 5:30 this morning. REVIEW OF SYSTEMS: Ten-point review of systems is negative unless otherwise indicated in the above HPI. PAST MEDICAL HISTORY: Paroxysmal atrial fibrillation; diastolic and systolic heart failure; chronic kidney disease, stage 4; hypothyroidism; hypertension; GERD; breast cancer in the past; non-neoplastic pancreatic mass. PAST SURGICAL HISTORY: Mitral and tricuspid valve repairs in 2017, left hip repair. ALLERGIES: VALIUM. SOCIAL HISTORY: The patient is a previous smoker who quit over 10 years ago. No alcohol or drug use. CURRENT MEDICATIONS: 1. Aspirin 81 mg p.o. daily. 2. Lasix 80 mg p.o. b.i.d. 3. Venlafaxine 150 mg p.o. daily. 4. Diltiazem 120 mg p.o. daily. 5. Levothyroxine 150 mcg p.o. daily. 6. Metoprolol 25 mg p.o. b.i.d. 7. Protonix 40 mg p.o. daily. 8. Plavix 75 mg daily. PHYSICAL EXAMINATION: VITAL SIGNS: Temperature 97.8, pulse 61, blood pressure 162/75, SpO2 100% on room air, respirations 16. GENERAL: Elderly female, awake, alert, in no distress. HEENT: Head is atraumatic and normocephalic. Pupils are equal bilaterally. Mucous membranes are moist. NECK: No cervical spine tenderness. Normal range of motion of neck. No JVD. RESPIRATORY: Good inspiratory and expiratory effort. Bilateral breath sounds clear. No wheezing, rales, or rhonchi. CARDIAC: Midline chest incision healed. Heart rate is regular. No murmurs. No pedal edema. ABDOMEN: Soft, nontender, and nondistended. Pelvis is stable. EXTREMITIES: Moves all extremities. Neurovascularly intact x4. Swelling and deformity to left ankle, small abrasion to the top of the ankle. Positive distal pulses. NEUROLOGIC: No focal deficits. GCS 15. LABORATORY DATA: WBC 7.6, RBC 3.32, hemoglobin 10.7, hematocrit 31.4, platelets 316. PT 12.8, INR 0.9, APTT 23.8. Sodium 137, potassium 4.0, chloride 95, BUN 45, creatinine 2.45, estimated GFR 19, glucose 137, calcium 10.5, phosphorus 3.9, magnesium 2.4, alkaline phosphatase 125. DIAGNOSTICS: Left ankle x-ray; impression, fracture dislocation at the ankle. Trimalleolar displaced fractures. Displaced fractures of the medial malleolus, lateral malleolus, and posterior malleolus. Dislocation of the tibiotalar joint. Tib-fib x-ray, left; proximal and mid tibia and fibula are intact. Chest x-ray, impression; 1. Chronic type finding, stable. Degenerative changes, left shoulder. 2. No consolidation or pneumothorax. ASSESSMENT: 1. Status post ground-level fall. 2. Left ankle fracture, dislocation. 3. Chronic kidney disease, stage 4. 4. History of atrial fibrillation, systolic and diastolic heart failure, hypertension, hypothyroidism, gastroesophageal reflux disease, Watchman, and pacemaker. PLAN: Admit to telemetry for continuous cardiac monitoring. Orthopedic Surgery plans to take the patient to the OR tomorrow for repair of her left ankle. Nonweightbearing left lower extremity. Pain control and supportive care. Heart healthy diet today. N.p.o. after midnight with gentle maintenance IV fluids normal saline at 50 mL an hour. PT and OT to evaluate and treat postop tomorrow. We will place a rehab screen as the patient may likely need additional PT and OT. We will monitor signs of increased heart failure postop. We will plan on monitoring the patient 24 hours postop on telemetry floor and then the patient can be moved to surgical. We will restart the patient's home blood pressure medicines with hold parameters. The plan was discussed with the patient and attending who agrees. Job ID: [id number] MTDD
[2020-07-30] MEDS: Metoprolol Tartrate 25 MG TAB PO SCH (21:08)
[2020-07-30] MEDS ORDERED: Cyclobenzaprine 10 MG TAB PO PRN (21:19)
[2020-07-30] MEDS ORDERED: Gabapentin 100 MG CAP PO SCH (21:45)
[2020-07-30] MEDS: Morphine 4 MG/ML VIAL SLOW IVP PRN (23:28)
[2020-07-31] MEDS: Acetaminophen 500 MG TAB PO SCH ×5 (01:29→17:07)
--- NOTE | 2020-07-31 02:23 | PRG ---
DATE OF SERVICE: 07/30/2020 SUBJECTIVE: Patient was seen this morning during rounds. She was sitting up in bed, awake and alert with no signs of acute distress. She reported that she was having left lower extremity pain. Nursing at the time was at the bedside, giving oral pain medications. The patient describes the pain as a burning sensation in her left ankle area. Otherwise, reports no other pain. OBJECTIVE: VITAL SIGNS: Temperature 98.1, pulse 77, respirations 18, oxygen saturation 99% on room air, and blood pressure 166/77. ASSESSMENT: 1. Status post ground level fall, on Plavix. 2. Left trimalleolar ankle fracture dislocation. 3. History of congestive heart failure-systolic and diastolic, status post Watchman and pacemaker, chronic kidney disease, atrial fibrillation, and gastroesophageal reflux disease. 4. Acute kidney injury on chronic kidney disease. PLAN: Continue current heart healthy diet. N.p.o. at midnight. Normal saline at 50 an hour x1 L to start at midnight. The patient to go to the OR tomorrow with Dr. Li, for fixation of the left trimalleolar ankle fracture dislocation. We have added gabapentin and Flexeril to her pain regimen as well as morphine p.r.n. for breakthrough pain. The patient is amenable to going to rehab postop. Job ID: [id number]
[2020-07-31] MEDS: Morphine 4 MG/ML VIAL SLOW IVP PRN (03:28)
[2020-07-31 05:11] LABS: #Eosinphils 0.3 thou/uL (0.0-0.7); #Lymphocytes 1.1 thou/uL (1.20-3.40); #Monocytes 0.6 thou/uL (0.11-0.59); #Neutrophils 4.5 thou/uL (1.40-6.50); %Basophils 0.5 % (0.0-1.0); %Eosinophils 3.8 % (0.0-10.0); %Lymphocytes 16.9 % (21.0-51.0); %Monocytes 9.7 % (0.0-10.0); %Neutrophils 69.1 % (42.0-75.0); Hemoglobin 9.6 g/dL (12.0-16.0); Mean Corpuscular HGB CONC 34.9 g/dL (32.0-36.0); Mean Corpuscular Hemoglobin 33.5 pg (27.0-31.0); Mean Corpuscular Volume 95.9 fL (78.0-98.0); Mean Platelet Volume 7.6 fL (7.4-10.4); Platelet Count 241 thou/uL (130-400); Red Blood Cell (RBC) Count 2.87 mill/uL (4.20-5.40); White Blood Cell (WBC) Count 6.5 thou/uL (4.8-10.8)
[2020-07-31 05:22] LABS: Anion Gap 14 mmol/L (10-20); BUN (Urea Nitrogen) 34 mg/dL (9.8-20.1); Calc. Creatinine Clearance 32 mL/min (70-130); Calcium 9.8 mg/dL (7.8-10.44); Carbon Dioxide 27 mmol/L (23-31); Chloride 103 mmol/L (98-107); Glucose 105 mg/dL (83-110); Magnesium 2.3 mg/dL (1.6-2.6); Phosphorus 3.5 mg/dL (2.3-4.7); Potassium 4.1 mmol/L (3.5-5.1); Sodium 140 mmol/L (136-145)
[2020-07-31] MEDS ORDERED: Bupivacaine PF 0.5% 30 ML VIAL ONE (07:16)
[2020-07-31] MEDS: Levothyroxine 150 MCG TAB PO SCH (07:23)
[2020-07-31] MEDS ORDERED: EPINEPHrine 1 MG/ML AMP ONE (07:28)
[2020-07-31] MEDS ORDERED: Fentanyl 100 MCG/2 ML VIAL ONE (07:28)
[2020-07-31] MEDS ORDERED: Ketamine 50 MG/ML (10ML VIAL) ONE (07:50)
[2020-07-31] MEDS ORDERED: Midazolam HCl 2 mg/2 ml Vial ONE (08:06)
--- NOTE | 2020-07-31 08:21 | OP ---
DATE OF PROCEDURE: 07/31/2020 PROCEDURE PERFORMED: Left ankle open reduction and internal fixation. PREOPERATIVE DIAGNOSIS: Left bimalleolar ankle fracture. POSTOPERATIVE DIAGNOSIS: Left bimalleolar ankle fracture. COMPLICATIONS: None. ESTIMATED BLOOD LOSS: Minimal. SYSTEMS TESTER: Skyla Castellanos PA-C. IMPLANTS: Synthes 6-hole one-third tubular plate with 4.0 partially-threaded screws also. INDICATIONS: Ms. Snowden is an 79-year-old female, who has fallen and fractured her left ankle. She has been indicated for open reduction and internal fixation to restore anatomic alignment and promote healing. Risks have been reviewed in detail. She has elected to proceed with the operation. Risks to include wound complication, nerve or vascular injury, and others. DESCRIPTION OF PROCEDURE: Ms. Snowden was identified in the preoperative holding area. Her correct extremity was marked. She was carried to the operating room. She was positioned supine. General anesthesia was induced. A multidisciplinary time-out was performed. The left lower extremity was prepped and draped in sterile fashion. We began the procedure with a lateral approach to the fibula. We dissected down through the subcutaneous tissues to the bony level. We exposed the underlying fracture. The fracture was cleared of soft tissue. We then reduced the fracture with a reduction clamp. At this point, we applied a 6-hole one-third tubular plate to the lateral cortex. We placed multiple screws in the fibula. We then moved to the medial ankle. We reduced the medial malleolus and cleared the soft tissues from this side. We placed a K-wire holding our position. We then placed two 4.0 partially threaded screws across the fracture site. This completed the fixation. We took x-rays including a stress view x-ray, which was negative. At this point, we closed all wounds in layers after thorough irrigation and placed a well-padded splint. The patient was taken to the recovery room in good condition. Job ID: [id number]
[2020-07-31] MEDS ORDERED: Ropivacaine 0.5% HCl/PF (150 MG/30 ML VIAL) ONE (11:18)
[2020-07-31] MEDS ORDERED: Ropivacaine 0.2% HCl/PF (40 MG/20 ML VIAL) ONE (11:18)
[2020-07-31] MEDS: Gabapentin 100 MG CAP PO SCH ×3 (11:52→21:21)
[2020-07-31] MEDS: Famotidine 20 MG TAB PO SCH ×2 (11:52→21:22)
[2020-07-31] MEDS: Metoprolol Tartrate 25 MG TAB PO SCH ×2 (11:53→21:21)
[2020-07-31] MEDS ORDERED: Dexamethasone 20 MG/5 ML VIAL ONE (12:15)
[2020-07-31] MEDS ORDERED: Ondansetron PF 4 MG/2 ML Vial ONE (12:15)
--- NOTE | 2020-07-31 13:11 | RAD ---
LEFT ANKLE 2 VIEWS: HISTORY: Postop. FINDINGS: These are C-arm views which show open reduction internal fixation of a bimalleolar fracture with plat e and screws. IMPRESSION: Postop change. POS: AH
[2020-07-31] MEDS: CEFAZOLIN 2 GM in Premix Bag 1 BAG IVPB SCH ×2 (14:53→21:22)
--- NOTE | 2020-07-31 17:19 | PRG ---
DATE OF SERVICE: 07/31/2020 SUBJECTIVE: The patient was seen on the telemetry floor, awake, alert, in no distress, eating dinner. The patient is postop repair of her left ankle fracture. The patient currently denies any pain at this time. The patient does have a digital block in place per Anesthesia. The patient is tolerating her diet and voices no complaints or concerns at this time. The patient states that she sat on the side of the bed with physical therapy earlier. The patient remained in sinus rhythm on the monitoring engineer. OBJECTIVE: VITAL SIGNS: Temperature 98.3, pulse 79, respirations 17, SpO2 98% on 1 L nasal cannula, blood pressure 146/76. GENERAL: Well-appearing elderly female, awake, alert, in no distress. HEENT: Unremarkable. RESPIRATORY: Good inspiratory and expiratory effort, no distress. CARDIAC: Regular rate, regular rhythm. ABDOMEN: Soft, nontender, nondistended. EXTREMITIES: Moves all extremities, neurovascularly intact x4, left lower extremity splinted. NEUROLOGIC: GCS 15. LABORATORY DATA: WBC 6.5, RBC 2.87, hemoglobin 9.6, hematocrit 27.5, platelets 241. Sodium 140, potassium 4.1, chloride 103, BUN 34, creatinine 1.86, estimated GFR 26, glucose 105, calcium 9.8, phosphorus 3.5, magnesium 2.3. DIAGNOSTICS: No new diagnostics to review today. ASSESSMENT: 1. Status post ground level fall, on Plavix. 2. Left ankle fracture, dislocation, status post repair. 3. Acute on chronic kidney disease stage 4, improved. 4. History of atrial fibrillation, systolic and diastolic heart failure, hypertension, hypothyroidism, gastroesophageal reflux disease, Watchman and pacemaker. PLAN: Continue heart healthy diet and supportive care. Pain control. Increase physical and occupational therapy. We will continue telemetry monitoring for 24 hours postop. The patient will likely need inpatient rehab or skilled for continued physical and occupational therapy as she will be nonweightbearing in her left lower extremity. Repeat labs in the morning. We will start chemical VTE prophylaxis once hemoglobin is stable. The plan was discussed with the patient and family who agrees. Plan was discussed with the attending who agrees. Job ID: [id number]
--- NOTE | 2020-08-01 00:45 | PRG ---
DATE OF SERVICE: 07/31/2020 SUBJECTIVE: Patient was seen this evening during rounds. She is postoperative day 0, status post ORIF of the left ankle fracture. At the time of my evaluation, she was sitting up in bed, resting comfortably and asleep. Nursing was at the bedside, reported that the patient's pain is well controlled. She tolerated her diet and has no complaints. OBJECTIVE: VITAL SIGNS: Temperature 97.9, pulse 60, respirations 16, oxygen saturation 98% on room air, blood pressure 131/62. ASSESSMENT: 1. Status post ground level fall, on Plavix. 2. Left trimalleolar fracture dislocation. 3. Acute kidney injury on chronic kidney disease, improved. 4. History of congestive heart failure, diastolic and systolic, Watchman's, pacemaker, chronic kidney disease, atrial fibrillation, and gastroesophageal reflux disease. PLAN: Continue current diet and pain regimen. Continue physical and occupational therapy. Normal saline to finish after this bag. Start working with Physical and Occupational therapy tomorrow. She will likely need placement either skilled facility or rehab facility. Job ID: [id number]
[2020-08-01] MEDS: Acetaminophen 500 MG TAB PO SCH ×4 (01:07→18:12)
[2020-08-01 04:51] LABS: #Lymphocytes 1.3 thou/uL (1.20-3.40); #Monocytes 1.1 thou/uL (0.11-0.59); #Neutrophils 9.7 thou/uL (1.40-6.50); %Basophils 0.2 % (0.0-1.0); %Eosinophils 0.2 % (0.0-10.0); %Lymphocytes 10.6 % (21.0-51.0); %Monocytes 9.2 % (0.0-10.0); %Neutrophils 79.9 % (42.0-75.0); Hemoglobin 8.8 g/dL (12.0-16.0); Mean Corpuscular HGB CONC 33.5 g/dL (32.0-36.0); Mean Corpuscular Hemoglobin 32.3 pg (27.0-31.0); Mean Corpuscular Volume 96.6 fL (78.0-98.0); Mean Platelet Volume 7.6 fL (7.4-10.4); Platelet Count 216 thou/uL (130-400); Red Blood Cell (RBC) Count 2.71 mill/uL (4.20-5.40); White Blood Cell (WBC) Count 12.1 thou/uL (4.8-10.8)
[2020-08-01 05:01] LABS: Anion Gap 17 mmol/L (10-20); BUN (Urea Nitrogen) 34 mg/dL (9.8-20.1); Calc. Creatinine Clearance 28 mL/min (70-130); Calcium 9.7 mg/dL (7.8-10.44); Carbon Dioxide 22 mmol/L (23-31); Chloride 105 mmol/L (98-107); Glucose 144 mg/dL (83-110); Magnesium 2.4 mg/dL (1.6-2.6); Phosphorus 3.1 mg/dL (2.3-4.7); Sodium 139 mmol/L (136-145)
[2020-08-01] MEDS: Levothyroxine 150 MCG TAB PO SCH (05:03)
[2020-08-01] MEDS ORDERED: Sodium Chloride 0.9% 500 ML IV SCH (09:15)
[2020-08-01] MEDS: Metoprolol Tartrate 25 MG TAB PO SCH ×2 (09:19→20:50)
[2020-08-01] MEDS: Gabapentin 100 MG CAP PO SCH ×3 (09:20→20:48)
[2020-08-01] MEDS: Famotidine 20 MG TAB PO SCH (09:34)
--- NOTE | 2020-08-01 17:58 | PRG ---
DATE OF SERVICE: 08/01/2020 SUBJECTIVE: The patient was seen on the telemetry floor, awake, alert, in no distress. The patient has been atrial paced all night without any ectopy. The patient denies any chest pain or shortness of breath. The patient's pain has been well controlled. The patient's urinary output has been adequate for age and weight. The patient has had decreased intake overnight with some worsening renal function. OBJECTIVE: VITAL SIGNS: Blood pressure 130/60, temperature 97.7, pulse 60, respirations 12, SpO2 is 100% on room air. GENERAL: Elderly female, awake, alert, in no distress. HEENT: Unremarkable. RESPIRATORY: Good inspiratory and expiratory effort, respirations are even and nonlabored. CARDIAC: Regular rate, regular rhythm. No JVD. ABDOMEN: Soft, nontender, nondistended. EXTREMITIES: Moves all extremities, neurovascularly intact x4, left lower extremity splinted. LABORATORY DATA: WBC 12.1, RBC 2.71, hemoglobin 8.8, hematocrit 26.2, platelets 216. Sodium 139, potassium 5.0, chloride 105, carbon dioxide 22, BUN 34, creatinine 2.14, estimated GFR 22, glucose 144, phosphorus 3.1, magnesium 2.4. BNP 119.5. DIAGNOSTICS: No new diagnostics to review. ASSESSMENT: 1. Status post ground level fall, on Plavix. 2. Left ankle fracture, dislocation, status post repair. 3. Acute on chronic kidney disease, stage 4. 4. History of atrial fibrillation, systolic and diastolic heart failure, hypertension, hypothyroidism, gastroesophageal reflux disease, Watchman and pacemaker. PLAN: Continue heart healthy diet and supportive care. Pain control. Increase physical and occupational therapy. We will move the patient to the surgical floor for increased physical therapy as she has had no events overnight. A post-acute screen has been placed as the patient will need most likely inpatient rehab. The plan has been discussed with the attending and the patient, who agreed. Job ID: [id number]
[2020-08-02] MEDS: Acetaminophen 500 MG TAB PO SCH ×4 (00:03→17:02)
--- NOTE | 2020-08-02 01:46 | PRG ---
DATE OF SERVICE: 08/01/2020 SUBJECTIVE: Patient was seen this evening during rounds. She was lying in bed, resting comfortably and asleep with no signs of acute distress. Nursing reported no acute events. Earlier today, patient received normal saline bolus for worsening FILIBERTO. OBJECTIVE: VITAL SIGNS: Temperature 98.5, pulse 60, respirations 16, oxygen saturation 97% on room air, blood pressure 115/58. ASSESSMENT: 1. Status post ground-level fall, on Plavix. 2. Left trimalleolar ankle fracture dislocation, status post repair. 3. Acute kidney injury on chronic kidney disease, slightly worse today. 4. History of systolic and diastolic heart failure, Watchman, pacemaker, chronic kidney disease, atrial fibrillation, and gastroesophageal reflux disease. PLAN: Continue current diet and pain regimen. Continue physical and occupational therapy. The patient has received IV fluid bolus. We will not add additional IV fluids at this time. Repeat blood work in the morning. Watch urinary output. The patient will likely need placement in acute rehab facility. Job ID: [id number]
[2020-08-02] MEDS: Levothyroxine 150 MCG TAB PO SCH (05:11)
[2020-08-02 05:36] LABS: #Eosinphils 0.1 thou/uL (0.0-0.7); #Lymphocytes 1.2 thou/uL (1.20-3.40); #Monocytes 0.6 thou/uL (0.11-0.59); #Neutrophils 5.7 thou/uL (1.40-6.50); %Basophils 0.4 % (0.0-1.0); %Eosinophils 1.8 % (0.0-10.0); %Lymphocytes 15.3 % (21.0-51.0); %Monocytes 7.6 % (0.0-10.0); %Neutrophils 74.8 % (42.0-75.0); Hemoglobin 7.7 g/dL (12.0-16.0); Mean Corpuscular Hemoglobin 31.9 pg (27.0-31.0); Mean Corpuscular Volume 96.8 fL (78.0-98.0); Mean Platelet Volume 7.6 fL (7.4-10.4); Platelet Count 239 thou/uL (130-400); White Blood Cell (WBC) Count 7.6 thou/uL (4.8-10.8)
[2020-08-02 06:01] LABS: Anion Gap 15 mmol/L (10-20); BUN (Urea Nitrogen) 27 mg/dL (9.8-20.1); Calc. Creatinine Clearance 33 mL/min (70-130); Calcium 9.6 mg/dL (7.8-10.44); Carbon Dioxide 25 mmol/L (23-31); Chloride 106 mmol/L (98-107); Glucose 104 mg/dL (83-110); Magnesium 2.4 mg/dL (1.6-2.6); Phosphorus 2.2 mg/dL (2.3-4.7); Potassium 4.5 mmol/L (3.5-5.1); Sodium 141 mmol/L (136-145)
[2020-08-02] MEDS ORDERED: Sodium Phosphate 30 MMOL in Sodium Chloride 0.9% 250 ML 250 ML IVPB SCH (09:00)
[2020-08-02] MEDS ORDERED: Venlafaxine HCl XR 150 MG CAP PO SCH (09:00)
[2020-08-02] MEDS ORDERED: Aspirin 81 mg Enteric Coated Tablet PO SCH (09:00)
[2020-08-02] MEDS ORDERED: Clopidogrel Bisulfate 75 MG TAB PO SCH (09:00)
[2020-08-02] MEDS: Metoprolol Tartrate 25 MG TAB PO SCH ×2 (09:51→20:20)
[2020-08-02] MEDS: Gabapentin 100 MG CAP PO SCH ×3 (09:51→20:21)
--- NOTE | 2020-08-02 11:11 | EKG ---
Test Reason : SURGERY Blood Pressure : / mmHG Vent. Rate : 062 BPM Atrial Rate : 062 BPM P-R Int : 220 ms QRS Dur : 098 ms QT Int : 472 ms P-R-T Axes : 060 -29 086 degrees QTc Int : 479 ms Sinus rhythm with 1st degree A-V block Left ventricular hypertrophy with repolarization abnormality Abnormal ECG Confirmed by NICOLA STEPHENS DO ([id number]), market editor LEONARD CHAUDHRY ([id number]) on 08/02/2020 11:11:26 AM Referred By: KAT Confirmed By:NICOLA STEPHENS DO
--- NOTE | 2020-08-02 14:55 | PRG ---
DATE OF SERVICE: 08/02/2020 SUBJECTIVE: Moriah is an female postop day 2 from a left trimalleolar open reduction and internal fixation. She is pleasant, but she is not engaged with physical therapy to the extent that she is independent and ready to discharge. OBJECTIVE: The splint is intact. No strike through. No erythema. She is neurovascularly intact. Good digital sensation and excursion. IMPRESSION: An 79-year-old female postop day 2, left trimalleolar fracture treated with open reduction and internal fixation. PLAN: Continue current care. Continue to follow. Disposition per Trauma Team. Job ID: [id number]
--- NOTE | 2020-08-02 15:23 | PRG ---
DATE OF SERVICE: 08/02/2020 SUBJECTIVE: The patient was seen during morning rounds, sitting up in a chair, eating. The patient's pain is well controlled at this time. The patient has not been ambulatory yet since she was postop on the . The patient had no overnight events. The patient denies any chest pain or shortness of breath. The patient did have some low urinary output yesterday, in which she received a 500 mL normal saline bolus. Urinary output has been adequate for age and weight. OBJECTIVE: VITAL SIGNS: Temperature 98.0, pulse 68, respirations 14, SpO2 of 94% on room air, blood pressure 155/69. GENERAL: Well-appearing, elderly female, awake, alert, in no distress. HEENT: Unremarkable. RESPIRATORY: Good inspiratory and expiratory effort. Respirations are even and nonlabored. CARDIAC: Regular rate, regular rhythm. ABDOMEN: Soft, nontender, nondistended. EXTREMITIES: Moves all extremities, neurovascularly intact x4, left lower extremity splinted. DIAGNOSTICS: There are no new diagnostics to review today. LABORATORY DATA: WBC 7.6, RBC 2.40, hemoglobin 7.7, hematocrit 23.3, platelets 239. Sodium 141; potassium 4.5; chloride 106; BUN 27; creatinine 1.80, improved from yesterday. Estimated GFR is 27, glucose 104, calcium 9.6, phosphorus 2.2, magnesium 2.4. ASSESSMENT: 1. Status post fall, on Plavix. 2. Left ankle fracture, dislocation, status post repair. 3. Acute on chronic kidney disease, stage 4, improved. 4. History of atrial fibrillation, systolic and diastolic heart failure, hypertension, hypothyroidism, gastroesophageal reflux disease, Watchman and pacemaker. PLAN: Continue heart healthy diet and supportive care. Pain control. Increase physical and occupational therapy. We will add iron and vitamin C as the patient has a drop in her hemoglobin. We will continue to monitor this. Continue VTE prophylaxis with SCDs and Plavix. The patient is pending placement for continued rehab. The plan was discussed with the patient, who agrees. The plan was discussed with the attending, who agrees. Job ID: [id number]
[2020-08-02] MEDS ORDERED: Ferrous Sulfate 325 MG TAB PO SCH (17:00)
[2020-08-02 19:39] VITALS: BP 148/67
[2020-08-02 20:12] VITALS: TEMP 98.6
[2020-08-02] MEDS ORDERED: Ascorbic Acid 500 mg Chewable Tablet PO SCH (21:00)
[2020-08-02] MEDS ORDERED: Furosemide 40 MG TAB PO SCH (21:00)
--- NOTE | 2020-08-04 11:48 | DIS ---
DATE OF ADMISSION: 07/30/2020 DATE OF DISCHARGE: 08/02/2020 ATTENDING: Dr. Vieira. CONSULTS: Orthopedic Surgery, Dr. Li. PROCEDURES: On 07/31/2020, open reduction and internal fixation of left ankle fracture. PRIMARY DIAGNOSES: Status post ground level fall, left ankle fracture, dislocation. SECONDARY DIAGNOSES: Chronic kidney disease stage 4, atrial fibrillation, systolic and diastolic heart failure, hypertension, hypothyroidism, gastroesophageal reflux disease, Watchman, and pacemaker placement. DISCHARGE MEDICATIONS: 1. Acetaminophen 1000 mg p.o. q.6 hours. 2. Vitamin C 500 mg p.o. b.i.d. 3. Aspirin 81 mg p.o. daily. 4. Plavix 75 mg p.o. daily. 5. Flexeril 5 mg p.o. 3 times a day as needed for muscle spasms. 6. Cardizem 120 mg p.o. daily. 7. Ferrous sulfate 325 mg p.o. b.i.d. 8. Lasix 80 mg b.i.d. 9. Gabapentin 100 mg 3 times a day. No discontinued medications. HISTORY OF PRESENT ILLNESS AND HOSPITAL COURSE: This is an 79-year-old female who lives at home with family who had a mechanical fall. She was trying to get something out of the refrigerator when she twisted her ankle caused her to fall. She denies hitting her head or losing consciousness. The patient denies any syncopal type episodes prior to the event. The patient was evaluated and found to have a left ankle fracture dislocation. The patient's pain was controlled pre and postop. The patient's ankle was reduced in the ER and splinted. The patient was able to work with Physical Therapy. The patient did have an acute kidney injury on chronic kidney disease that improved. The patient was initially evaluated on the telemetry floor due to her extensive cardiac history. The patient had no cardiac events on the monitor. The patient was eventually moved to the surgical floor. On the day of discharge, the patient's vital signs were stable and her exam was unremarkable including cardiopulmonary and GI exam. The patient was deemed stable for discharge to inpatient rehab for continued physical and occupational therapy. DISPOSITION: Stable. DISCHARGE INSTRUCTIONS: 1. Location: Inpatient rehab [facility]. 2. Diet: Heart healthy diet. 3. Orthopedic limitations: Nonweightbearing left lower extremity. FOLLOWUP: Follow up with primary care physician, Dr. Westfall in 14 days. Follow up with Orthopedic Surgery in 14 days. No need to follow up with Trauma Services. Please call for any questions. Job ID: [id number]
== END 2020-08-02 20:35 | DRG 493 ==
LOC: ERS 06:35 → 2NO 08:16 → OBSVTOIN 08:16 → SURG A 08-01 14:49
PROVIDERS: ADMIT Surgery; ATTEND Surgery
PROC: 0QSH04Z Reposition Left Tibia with Internal Fixation Device, Open Approach (ICD-10-PCS; principal; 2020-07-31)
DX: S82.852A Displaced trimalleolar fracture of left lower leg, initial encounter for closed fracture (principal); I50.42 Chronic combined systolic (congestive) and diastolic (congestive) heart failure; N18.4 Chronic kidney disease, stage 4 (severe); I13.0 Hypertensive heart and chronic kidney disease with heart failure and stage 1 through stage 4 chronic kidney disease, or unspecified chronic kidney disease; N17.9 Acute kidney failure, unspecified; Z20.822 Contact with and (suspected) exposure to COVID-19; E03.9 Hypothyroidism, unspecified; I48.0 Paroxysmal atrial fibrillation; K21.9 Gastro-esophageal reflux disease without esophagitis; W20.8XXA Other cause of strike by thrown, projected or falling object, initial encounter; Y92.000 Kitchen of unspecified non-institutional (private) residence as the place of occurrence of the external cause; Z95.0 Presence of cardiac pacemaker; Z85.3 Personal history of malignant neoplasm of breast; Z90.12 Acquired absence of left breast and nipple; Z87.11 Personal history of peptic ulcer disease; Z87.891 Personal history of nicotine dependence; Z79.899 Other long term (current) drug therapy; Z79.02 Long term (current) use of antithrombotics/antiplatelets; Z79.82 Long term (current) use of aspirin
CPT/HCPCS: 27810; 36415; 71045; 76000; 80048; 80053; 82550; 83735; 83880; 84100; 85025; 85610; 85730; 86850; 86870; 86900; 86901; 86905; 86922; 93005; 99152; 99153; C1713; J0171; J0690; J1100; J2250; J2270; J2405; J3010; J7050; S0020; U0002

== ENCOUNTER 2022-01-28 14:05 | Outpatient (CLI) | payer MEDICARE ==
[2022-01-28 15:35] LABS: #Basophils 0.1 10x3/uL (0.0-0.2); #Eosinphils 0.4 10x3/uL (0.0-0.5); #Monocytes 0.5 10x3/uL (0.0-1.1); #Neutrophils 4.8 10x3/uL (1.5-8.4); %Basophils 1.5 % (0.0-2.0); %Lymphocytes 15.9 % (18.0-47.0); %Monocytes 6.9 % (0.0-10.0); %Neutrophils 69.4 % (40.0-75.0); Hemoglobin 10.1 g/dL (12.0-15.5); Mean Corpuscular HGB CONC 32.2 g/dL (32.0-36.0); Mean Corpuscular Hemoglobin 30.7 pg (27.0-33.0); Mean Corpuscular Volume 95.4 fl (81.6-98.3); Mean Platelet Volume 10.5 fl (7.4-10.4); Platelet Count 331 10x3/uL (150-450); RBC Distribution Width 14.3 % (11.5-14.5); Red Blood Cell (RBC) Count 3.29 10x6/uL (3.90-5.03); White Blood Cell (WBC) Count 6.9 10x3/uL (3.5-10.5)
[2022-01-28 15:45] LABS: Anion Gap 18 mmol/L (10-20); BUN (Urea Nitrogen) 27 mg/dL (9.8-20.1); Calc. Creatinine Clearance 0 mL/min (70-130); Calcium 10.9 mg/dL (7.8-10.44); Carbon Dioxide 24 mmol/L (23-31); Chloride 107 mmol/L (98-107); Estimated GFR 33; Glucose 108 mg/dL (83-110); PTT 22.8 sec (22.0-33.0); Potassium 4.4 mmol/L (3.5-5.1); Prothrombin Time 10.4 sec (9.5-12.1); Sodium 145 mmol/L (136-145)
== END 2022-01-28 14:06 | disposition home or self-care (01) ==
LOC: LABBT 14:05 → EDBD 14:05 → LABBT 14:06
PROVIDERS: ATTEND Emergency Medicine
DX: Z01.812 Encounter for preprocedural laboratory examination (principal); Z20.822 Contact with and (suspected) exposure to COVID-19
CPT/HCPCS: 80048; 85025; 85610; 85730; 87811

== ENCOUNTER 2022-01-29 05:44 | Day surgery (SDC) | payer MEDICARE ==
[2022-01-28 08:54] VITALS: BMI 26.7
[2022-01-29] MEDS ORDERED: Iopamidol 370 76% 100 ML VIAL ONE (07:27)
[2022-01-29] MEDS ORDERED: Lidocaine 1% (PF) 30 ML VIAL ONE (07:37)
[2022-01-29 07:41] LABS: Cardiac Risk 5.2 (Less than 4.5)
[2022-01-29] MEDS ORDERED: Fentanyl 100 MCG/2 ML VIAL ONE (08:48)
[2022-01-29] MEDS ORDERED: Heparin 10,000 UNITS/ 10 ML VIAL ONE (09:08)
[2022-01-29] MEDS ORDERED: TICAGRELOR 90 MG TABLET ONE (09:26)
[2022-01-29] MEDS ORDERED: Nitroglycerin 100MG/250ML BOT 250 ML ONE (09:34)
[2022-01-29] MEDS ORDERED: hydrALAZINE 20 MG/ML VIAL ONE (11:23)
[2022-01-29] MEDS ORDERED: Morphine 2 MG/ML VIAL ONE (11:23)
[2022-01-29] MEDS ORDERED: Morphine 2 MG/ML VIAL SLOW IVP SCH (12:00)
[2022-01-29] MEDS ORDERED: Acetaminophen 500 MG TAB ONE (13:09)
== END 2022-01-29 15:30 | disposition home or self-care (01) ==
LOC: EDBD → CCL 05:44
PROVIDERS: ATTEND Internal Medicine Cardiovascular Disease
PROC: 02703DZ Dilation of Coronary Artery, One Artery with Intraluminal Device, Percutaneous Approach (ICD-10-PCS; principal; 2022-01-29)
PROC: 4A023N7 Measurement of Cardiac Sampling and Pressure, Left Heart, Percutaneous Approach (ICD-10-PCS; 2022-01-29)
PROC: B2111ZZ Fluoroscopy of Multiple Coronary Arteries using Low Osmolar Contrast (ICD-10-PCS; 2022-01-29)
DX: I42.0 Dilated cardiomyopathy (principal); I25.10 Atherosclerotic heart disease of native coronary artery without angina pectoris; I48.91 Unspecified atrial fibrillation; I50.33 Acute on chronic diastolic (congestive) heart failure; E03.9 Hypothyroidism, unspecified; I44.7 Left bundle-branch block, unspecified; Z79.82 Long term (current) use of aspirin; Z79.890 Hormone replacement therapy; Z79.899 Other long term (current) drug therapy; Z88.8 Allergy status to other drugs, medicaments and biological substances; Z95.5 Presence of coronary angioplasty implant and graft; Z95.818 Presence of other cardiac implants and grafts
CPT/HCPCS: 80061; 85347; 92928; 93005; 93454; C1725; C1769; C1876; J0360; J1644; J2001; J2270; J3010; Q9967

== ENCOUNTER 2022-05-07 10:20 | Outpatient (CLI) | payer MEDICARE ==
[2022-05-07 12:19] LABS: #Basophils 0.1 10x3/uL (0.0-0.2); #Eosinphils 0.2 10x3/uL (0.0-0.5); #Monocytes 0.4 10x3/uL (0.0-1.1); #Neutrophils 4.4 10x3/uL (1.5-8.4); %Basophils 0.9 % (0.0-2.0); %Lymphocytes 13.4 % (18.0-47.0); %Monocytes 6.4 % (0.0-10.0); %Neutrophils 74.8 % (40.0-75.0); Hemoglobin 9.6 g/dL (12.0-15.5); Mean Corpuscular Hemoglobin 30.9 pg (27.0-33.0); Mean Corpuscular Volume 93.6 fl (81.6-98.3); Mean Platelet Volume 11.1 fl (7.4-10.4); Platelet Count 196 10x3/uL (150-450); RBC Distribution Width 13.8 % (11.5-14.5); Red Blood Cell (RBC) Count 3.11 10x6/uL (3.90-5.03); White Blood Cell (WBC) Count 5.8 10x3/uL (3.5-10.5)
[2022-05-07 12:40] LABS: Anion Gap 18 mmol/L (10-20); BUN (Urea Nitrogen) 18 mg/dL (9.8-20.1); Calc. Creatinine Clearance 0 mL/min (70-130); Calcium 10.1 mg/dL (7.8-10.44); Carbon Dioxide 21 mmol/L (23-31); Chloride 107 mmol/L (98-107); Estimated GFR 35; Glucose 239 mg/dL (83-110); Potassium 4.6 mmol/L (3.5-5.1); Sodium 141 mmol/L (136-145)
[2022-05-07 13:13] LABS: Large Platelets SLIGHT; Platelet Clumps MODERATE; Platelet Morphology Comment Appears Adequate
[2022-05-07 13:15] LABS: RBC Morphology Normal
== END 2022-05-07 10:21 | disposition home or self-care (01) ==
LOC: LABBT 10:20
PROVIDERS: ATTEND Orthopaedic Surgery
DX: Z01.818 Encounter for other preprocedural examination (principal); Z20.822 Contact with and (suspected) exposure to COVID-19
CPT/HCPCS: 80048; 85025; 87811; 93005; 93010

== ENCOUNTER 2022-05-12 05:35 | Inpatient (IN) | payer MEDICARE ==
[2022-05-11 10:53] VITALS: BMI 25.1
[2022-05-12] MEDS: CEFAZOLIN 2 GM in Sodium Chloride 0.9% 100 ML IVPB SCH ×2 (00:05→13:48)
[2022-05-12] MEDS ORDERED: Sodium Chloride 0.9% 100 ML ONE (05:56)
[2022-05-12] MEDS ORDERED: Vancomycin 1 GM/200 ML BAG ONE (05:56)
[2022-05-12] MEDS ORDERED: Tranexamic Acid 1,000 MG/10 ML VIAL ONE ×2 (05:56→10:37)
[2022-05-12] MEDS ORDERED: Midazolam HCl 2 mg/2 ml Vial ONE ×2 (06:12→06:35)
[2022-05-12] MEDS ORDERED: fentaNYL Citrate/PF 100 MCG/2 ML SYRINGE ONE ×2 (06:13→07:57)
[2022-05-12] MEDS ORDERED: Lidocaine 2% 6 ML SYR ONE (06:13)
[2022-05-12] MEDS ORDERED: Fentanyl 100 MCG/2 ML VIAL ONE (06:35)
[2022-05-12] MEDS ORDERED: Ropivacaine 0.5% HCl/PF (150 MG/30 ML VIAL) ONE ×2 (06:35→07:00)
[2022-05-12] MEDS ORDERED: Lidocaine 1% (PF) 30 ML VIAL ONE (06:36)
[2022-05-12] MEDS ORDERED: Rocuronium Bromide 10 MG/ML (10ML VIAL) ONE (06:59)
[2022-05-12] MEDS ORDERED: PROPOFOL 200 MG/20 ML VIAL ONE (06:59)
[2022-05-12] MEDS ORDERED: PHENYLEPHRINE-NS 100 MCG/ML 10 ML SYRINGE ONE (06:59)
[2022-05-12] MEDS ORDERED: Dexamethasone 20 MG/5 ML VIAL ONE (06:59)
[2022-05-12] MEDS ORDERED: Ondansetron PF 4 MG/2 ML Vial ONE (06:59)
[2022-05-12] MEDS ORDERED: Clindamycin/D5W 600 mg/50 ml Premix Bag ONE (07:08)
[2022-05-12] MEDS ORDERED: Levofloxacin 500 mg/D5W 100 ml Premix Bag ONE (07:08)
[2022-05-12] MEDS ORDERED: Phenylephrine 10 MG/ML VIAL ONE (08:13)
[2022-05-12] MEDS ORDERED: Ondansetron PF 4 MG/2 ML Vial IVP PRN ×2 (08:15→10:54)
[2022-05-12] MEDS ORDERED: Promethazine HCl 25 MG/ML VIAL IM PRN ×2 (08:15→10:37)
[2022-05-12] MEDS ORDERED: Ketorolac Tromethamine 30 MG/ML VIAL IVP PRN (08:15)
[2022-05-12] MEDS ORDERED: Ropivacaine 0.2% 550 ML 550 ML NERVE BLCK SCH (08:15)
[2022-05-12] MEDS ORDERED: traMADol HCl 50 MG TAB PO PRN ×2 (08:15)
[2022-05-12] MEDS ORDERED: Zolpidem Tartrate 5 MG TAB PO PRN ×2 (08:15→10:54)
[2022-05-12] MEDS ORDERED: Rocuronium Bromide 50 MG/5 ML VIAL ONE (09:13)
[2022-05-12] MEDS ORDERED: SUGAMMADEX SODIUM 200 MG/2 ML VIAL ONE (09:56)
[2022-05-12] MEDS ORDERED: Ondansetron HCl/PF 4 MG/2 ML Vial IVP PRN (10:37)
[2022-05-12] MEDS ORDERED: Promethazine HCl 25 MG/ML VIAL IVPB PRN (10:37)
[2022-05-12] MEDS ORDERED: Vancomycin 1 GM in Premix Bag 1 BAG IVPB SCH (10:54)
[2022-05-12] MEDS ORDERED: Methocarbamol 500 MG TAB PO PRN ×2 (10:54→12:40)
[2022-05-12] MEDS ORDERED: Methocarbamol 1 GM/10 ML VIAL SLOW IVP PRN (10:54)
[2022-05-12] MEDS ORDERED: Milk Of Magnesia 30 ML UDCUP PO PRN (10:54)
[2022-05-12] MEDS ORDERED: Bisacodyl 10 MG SUPP PR PRN (10:54)
[2022-05-12] MEDS ORDERED: diphenhydrAMINE 50 MG CAP PO PRN (10:54)
[2022-05-12] MEDS ORDERED: Famotidine 20 MG TAB PO SCH (12:45)
[2022-05-12] MEDS: Sodium Chloride 0.9% 1,000 ML IV SCH (13:07)
[2022-05-12] MEDS: HYDROcodone/Acetaminophen 10/325 mg Tablet PO PRN ×2 (16:20→21:10)
[2022-05-12] MEDS: Metoprolol Tartrate 25 MG TAB PO SCH (21:10)
[2022-05-13] MEDS: Sodium Chloride 0.9% 1,000 ML IV SCH ×2 (02:00→16:28)
[2022-05-13] MEDS: Levothyroxine 150 MCG TAB PO SCH (05:20)
[2022-05-13 06:10] LABS: #Lymphocytes 0.8 thou/uL (1.20-3.40); #Monocytes 0.8 thou/uL (0.11-0.59); %Eosinophils 0.2 % (0.0-10.0); %Lymphocytes 10.5 % (21.0-51.0); %Neutrophils 79.3 % (42.0-75.0); Hemoglobin 8.3 g/dL (12.0-16.0); Mean Corpuscular Hemoglobin 31.5 pg (27.0-31.0); Mean Corpuscular Volume 98.5 fL (78.0-98.0); Mean Platelet Volume 8.1 fL (7.4-10.4); Platelet Count 230 thou/uL (130-400); RBC Distribution Width 12.7 % (11.5-14.5); Red Blood Cell (RBC) Count 2.64 mill/uL (4.20-5.40); White Blood Cell (WBC) Count 7.6 thou/uL (4.8-10.8)
[2022-05-13 06:27] LABS: Anion Gap 14 mmol/L (10-20); BUN (Urea Nitrogen) 24 mg/dL (9.8-20.1); Calc. Creatinine Clearance 25 mL/min (70-130); Calcium 9.7 mg/dL (7.8-10.44); Carbon Dioxide 20 mmol/L (23-31); Chloride 108 mmol/L (98-107); Estimated GFR 23; Glucose 143 mg/dL (83-110); Potassium 5.1 mmol/L (3.5-5.1); Sodium 137 mmol/L (136-145)
[2022-05-13] MEDS: Aspirin 81 mg Enteric Coated Tablet PO SCH (08:01)
[2022-05-13] MEDS: Metoprolol Tartrate 25 MG TAB PO SCH ×2 (08:01→21:23)
[2022-05-13] MEDS: Famotidine 20 MG TAB PO SCH (08:01)
[2022-05-13] MEDS: Venlafaxine 75 MG TAB PO SCH (08:01)
[2022-05-13] MEDS: HYDROcodone/Acetaminophen 10/325 mg Tablet PO PRN (08:05)
[2022-05-13] MEDS: Zinc Sulfate 220 MG CAP PO SCH (08:10)
[2022-05-13] MEDS: Lactated Ringer's 1,000 ML IV SCH ×2 (08:10→16:27)
[2022-05-13] MEDS ORDERED: FLU VACC QS2022-23(65YR UP)/PF 240 MCG/0.7 ML SYRINGE IM ONE (09:00)
[2022-05-13] MEDS ORDERED: Acetaminophen 500 MG TAB PO PRN (14:29)
[2022-05-13 19:27] LABS: Creatinine, Urine 203.62 mg/dL (47-110)
[2022-05-13] MEDS ORDERED: Metoprolol Tartrate 25 MG TAB PO SCH (21:00)
[2022-05-14] MEDS: Lactated Ringer's 1,000 ML IV SCH ×2 (01:08→15:12)
[2022-05-14] MEDS: HYDROcodone/Acetaminophen 10/325 mg Tablet PO PRN ×2 (04:07→15:13)
[2022-05-14] MEDS: Levothyroxine 150 MCG TAB PO SCH (05:43)
[2022-05-14 06:02] LABS: #Eosinphils 0.1 thou/uL (0.0-0.7); #Lymphocytes 1.1 thou/uL (1.20-3.40); #Monocytes 0.6 thou/uL (0.11-0.59); #Neutrophils 5.3 thou/uL (1.40-6.50); %Basophils 0.2 % (0.0-1.0); %Eosinophils 0.8 % (0.0-10.0); %Lymphocytes 15.3 % (21.0-51.0); %Monocytes 8.9 % (0.0-10.0); %Neutrophils 74.8 % (42.0-75.0); Hemoglobin 8.1 g/dL (12.0-16.0); Mean Corpuscular HGB CONC 31.2 g/dL (32.0-36.0); Mean Corpuscular Hemoglobin 31.2 pg (27.0-31.0); Mean Platelet Volume 7.9 fL (7.4-10.4); Platelet Count 213 thou/uL (130-400); RBC Distribution Width 12.9 % (11.5-14.5); White Blood Cell (WBC) Count 7.1 thou/uL (4.8-10.8)
[2022-05-14 06:04] LABS: Anion Gap 12 mmol/L (10-20); BUN (Urea Nitrogen) 29 mg/dL (9.8-20.1); Calc. Creatinine Clearance 27 mL/min (70-130); Calcium 10.1 mg/dL (7.8-10.44); Carbon Dioxide 21 mmol/L (23-31); Chloride 108 mmol/L (98-107); Estimated GFR 25; Glucose 128 mg/dL (83-110); Potassium 4.9 mmol/L (3.5-5.1); Sodium 136 mmol/L (136-145)
[2022-05-14 06:05] LABS: Iron 35 ug/dL (50-170); Iron Binding Capacity, Total 250 mcg/dL (265-497)
[2022-05-14 06:24] LABS: Vitamin D, 25 Hydroxy 32.7 ng/ml (> 30.0)
[2022-05-14 06:29] LABS: Ferritin 149.63 ng/mL (10-291)
[2022-05-14] MEDS: Venlafaxine 75 MG TAB PO SCH (08:35)
[2022-05-14] MEDS: Metoprolol Tartrate 25 MG TAB PO SCH ×2 (08:36→21:23)
[2022-05-14] MEDS: Famotidine 20 MG TAB PO SCH (08:36)
[2022-05-14] MEDS: Zinc Sulfate 220 MG CAP PO SCH (08:37)
[2022-05-14] MEDS: Aspirin 81 mg Enteric Coated Tablet PO SCH (08:38)
[2022-05-14] MEDS ORDERED: Levothyroxine 150 MCG TAB PO SCH (09:00)
[2022-05-14] MEDS ORDERED: Non-Formulary Item 1 EACH (Zinc [Zinc] 50 MG Tablet) PO SCH (09:00)
[2022-05-14] MEDS ORDERED: Venlafaxine HCl XR 150 MG CAP PO SCH (09:00)
[2022-05-14] MEDS: Sodium Chloride 0.9% 1,000 ML IV SCH (10:20)
[2022-05-14] MEDS ORDERED: EPOETIN ALFA-EPBX (ESRD) 10,000 UNIT/ML VIAL SC SCH (13:00)
[2022-05-14] MEDS ORDERED: Epoetin (ESRD) 10,000 UNITS/ML VIAL SC SCH (14:30)
[2022-05-14] MEDS ORDERED: HYDROcodone/Acetaminophen 5/325 mg Tablet PO PRN ×2 (19:01→19:02)
[2022-05-15] MEDS: Lactated Ringer's 1,000 ML IV SCH ×4 (02:04→21:03)
[2022-05-15] MEDS: Sodium Chloride 0.9% 1,000 ML IV SCH ×2 (02:05→14:08)
[2022-05-15] MEDS: Levothyroxine 150 MCG TAB PO SCH (06:06)
[2022-05-15] MEDS: Venlafaxine 75 MG TAB PO SCH (08:35)
[2022-05-15] MEDS: Acetaminophen 325 MG TAB PO PRN (08:35)
[2022-05-15] MEDS: Metoprolol Tartrate 25 MG TAB PO SCH ×2 (08:35→20:57)
[2022-05-15] MEDS: Ferrous Gluconate 324 MG TAB PO SCH (08:35)
[2022-05-15] MEDS: Famotidine 20 MG TAB PO SCH (08:35)
[2022-05-15] MEDS: Aspirin 81 mg Enteric Coated Tablet PO SCH (08:35)
[2022-05-15] MEDS: Zinc Sulfate 220 MG CAP PO SCH (08:35)
[2022-05-15] MEDS: Ondansetron ODT 4 MG TAB PO PRN (11:40)
[2022-05-16] MEDS: Ondansetron ODT 4 MG TAB PO PRN (00:45)
[2022-05-16] MEDS: Acetaminophen 325 MG TAB PO PRN (00:45)
[2022-05-16] MEDS: Lactated Ringer's 1,000 ML IV SCH ×2 (04:08→19:13)
[2022-05-16] MEDS: Levothyroxine 150 MCG TAB PO SCH (05:04)
[2022-05-16] MEDS: Sodium Chloride 0.9% 1,000 ML IV SCH (06:30)
[2022-05-16 06:53] LABS: Anion Gap 11 mmol/L (10-20); BUN (Urea Nitrogen) 25 mg/dL (9.8-20.1); Calc. Creatinine Clearance 35 mL/min (70-130); Calcium 10.6 mg/dL (7.8-10.44); Carbon Dioxide 22 mmol/L (23-31); Chloride 110 mmol/L (98-107); Estimated GFR 34; Glucose 109 mg/dL (83-110); Potassium 4.8 mmol/L (3.5-5.1); Sodium 138 mmol/L (136-145)
[2022-05-16] MEDS: Aspirin 81 mg Enteric Coated Tablet PO SCH (10:29)
[2022-05-16] MEDS: Metoprolol Tartrate 25 MG TAB PO SCH ×2 (10:29→20:34)
[2022-05-16] MEDS: Ferrous Gluconate 324 MG TAB PO SCH (10:29)
[2022-05-16] MEDS: Venlafaxine 75 MG TAB PO SCH (10:29)
[2022-05-16] MEDS: Famotidine 20 MG TAB PO SCH (10:29)
[2022-05-16] MEDS: Zinc Sulfate 220 MG CAP PO SCH (10:29)
[2022-05-16 21:31] LABS: #Eosinphils 0.2 thou/uL (0.0-0.7); #Lymphocytes 1.1 thou/uL (1.20-3.40); #Monocytes 0.5 thou/uL (0.11-0.59); #Neutrophils 4.7 thou/uL (1.40-6.50); %Basophils 0.5 % (0.0-1.0); %Eosinophils 2.4 % (0.0-10.0); %Lymphocytes 16.5 % (21.0-51.0); %Monocytes 8.4 % (0.0-10.0); %Neutrophils 72.3 % (42.0-75.0); Hemoglobin 8.2 g/dL (12.0-16.0); Mean Corpuscular HGB CONC 33.1 g/dL (32.0-36.0); Mean Corpuscular Hemoglobin 32.3 pg (27.0-31.0); Mean Corpuscular Volume 97.3 fL (78.0-98.0); Mean Platelet Volume 7.8 fL (7.4-10.4); Platelet Count 274 thou/uL (130-400); RBC Distribution Width 13.1 % (11.5-14.5); Red Blood Cell (RBC) Count 2.54 mill/uL (4.20-5.40); White Blood Cell (WBC) Count 6.5 thou/uL (4.8-10.8)
[2022-05-16] MEDS ORDERED: Furosemide 40 MG/4 ML VIAL SLOW IVP SCH (21:45)
[2022-05-16 22:11] LABS: Anion Gap 14 mmol/L (10-20); BUN (Urea Nitrogen) 23 mg/dL (9.8-20.1); Calc. Creatinine Clearance 37 mL/min (70-130); Calcium 10.4 mg/dL (7.8-10.44); Carbon Dioxide 17 mmol/L (23-31); Chloride 111 mmol/L (98-107); Estimated GFR 37; Glucose 130 mg/dL (83-110); Magnesium 2.2 mg/dL (1.6-2.6); Potassium 4.9 mmol/L (3.5-5.1); Sodium 137 mmol/L (136-145)
[2022-05-16 22:31] LABS: Bacteria/HPF None Seen HPF (None Seen); Bilirubin Negative (Negative); Blood, Urine Negative (Negative); Clarity Clear (Clear); Glucose, Urine (Dipstick) Normal (Negative); Ketone, Urine Negative (Negative); Leukocyte Negative Leu/uL (Negative); Nitrite Negative (Negative); Protein, Urine (Dipstick) 50 mg/dL (Neg-Trace); RBC/HPF 0-3 HPF (0-3); Specific Gravity, Urine 1.022 (1.002-1.036); Squamous Epithelial 0-3 HPF (0-3); Urobilinogen Normal mg/dL (Less than 2); WBC/HPF 0-3 HPF (0-3); pH, Urine 5.5 (5.0-9.0)
[2022-05-16 22:33] LABS: Urine Culture Reflex No No
[2022-05-16] MEDS ORDERED: hydrALAZINE 20 MG/ML VIAL SLOW IVP PRN (23:21)
[2022-05-16] MEDS ORDERED: Electrolyte Replacement Protocol 1 EACH FS SCH (23:30)
[2022-05-16 23:59] LABS: Magnesium 2.1 mg/dL (1.6-2.6)
[2022-05-17] MEDS: Levothyroxine 150 MCG TAB PO SCH (05:16)
[2022-05-17] MEDS: Furosemide 20 MG/2 ML VIAL SLOW IVP SCH ×2 (05:17→13:17)
[2022-05-17 06:00] LABS: Anion Gap 11 mmol/L (10-20); BUN (Urea Nitrogen) 25 mg/dL (9.8-20.1); Calc. Creatinine Clearance 39 mL/min (70-130); Calcium 10.5 mg/dL (7.8-10.44); Carbon Dioxide 24 mmol/L (23-31); Chloride 107 mmol/L (98-107); Estimated GFR 39; Glucose 103 mg/dL (83-110); Sodium 138 mmol/L (136-145)
[2022-05-17] MEDS: Venlafaxine 75 MG TAB PO SCH (07:48)
[2022-05-17] MEDS: Famotidine 20 MG TAB PO SCH (07:48)
[2022-05-17] MEDS: Zinc Sulfate 220 MG CAP PO SCH (07:48)
[2022-05-17] MEDS: Ferrous Gluconate 324 MG TAB PO SCH (07:48)
[2022-05-17] MEDS: Metoprolol Tartrate 25 MG TAB PO SCH (07:49)
[2022-05-17] MEDS: Aspirin 81 mg Enteric Coated Tablet PO SCH (07:49)
[2022-05-17 19:41] VITALS: BP 140/55; TEMP 97.5
[2022-05-18] MEDS ORDERED: Furosemide 20 MG TAB PO SCH (09:00)
== END 2022-05-17 19:30 | disposition home or self-care (01) | DRG 483 ==
LOC: SDC 05:35 → SURG A 12:38 → OBSVTOIN 05-13 07:15
PROVIDERS: ADMIT Orthopaedic Surgery; ATTEND Orthopaedic Surgery
PROC: 0RRK0JZ Replacement of Left Shoulder Joint with Synthetic Substitute, Open Approach (ICD-10-PCS; principal; 2022-05-12)
PROC: 0LS40ZZ Reposition Left Upper Arm Tendon, Open Approach (ICD-10-PCS; 2022-05-12)
DX: M19.112 Post-traumatic osteoarthritis, left shoulder (principal); I50.42 Chronic combined systolic (congestive) and diastolic (congestive) heart failure; N18.4 Chronic kidney disease, stage 4 (severe); I13.0 Hypertensive heart and chronic kidney disease with heart failure and stage 1 through stage 4 chronic kidney disease, or unspecified chronic kidney disease; E87.20 Acidosis, unspecified; N17.9 Acute kidney failure, unspecified; N25.81 Secondary hyperparathyroidism of renal origin; M84.422A Pathological fracture, left humerus, initial encounter for fracture; Z20.822 Contact with and (suspected) exposure to COVID-19; I48.0 Paroxysmal atrial fibrillation; E03.9 Hypothyroidism, unspecified; K21.9 Gastro-esophageal reflux disease without esophagitis; D63.1 Anemia in chronic kidney disease; E87.5 Hyperkalemia; E83.52 Hypercalcemia; I25.10 Atherosclerotic heart disease of native coronary artery without angina pectoris; Z95.5 Presence of coronary angioplasty implant and graft; Z95.0 Presence of cardiac pacemaker; Z88.8 Allergy status to other drugs, medicaments and biological substances; Z79.899 Other long term (current) drug therapy
CPT/HCPCS: 36415; 71045; 76770; 80048; 81001; 82306; 82570; 82607; 82728; 83540; 83550; 83605; 83735; 83880; 83970; 84156; 85025; 86850; 86900; 86901; 86922; A4306; C1713; C1776; J0690; J1100; J1885; J1940; J1956; J2001; J2250; J2370; J2405; J2704; J2795; J3010; J3370; J3490; J7050; J7120; Q0162; Q4081

== ENCOUNTER 2022-07-21 15:50 | Outpatient (CLI) | payer MEDICARE ==
[2022-07-21 16:23] LABS: #Basophils 0.1 10x3/uL (0.0-0.2); #Eosinphils 0.4 10x3/uL (0.0-0.5); #Monocytes 0.4 10x3/uL (0.0-1.1); #Neutrophils 4.9 10x3/uL (1.5-8.4); %Basophils 1.2 % (0.0-2.0); %Eosinophils 5.4 % (0.0-6.0); %Lymphocytes 14.2 % (18.0-47.0); %Neutrophils 72.9 % (40.0-75.0); Mean Corpuscular HGB CONC 31.3 g/dL (32.0-36.0); Mean Corpuscular Hemoglobin 29.4 pg (27.0-33.0); Mean Corpuscular Volume 93.8 fl (81.6-98.3); Mean Platelet Volume 10.2 fl (7.4-10.4); Platelet Count 297 10x3/uL (150-450); RBC Distribution Width 14.1 % (11.5-14.5); White Blood Cell (WBC) Count 6.7 10x3/uL (3.5-10.5)
[2022-07-21 16:57] LABS: ALT (SGPT) 163 U/L (8-55); AST (SGOT) 128 U/L (5-34); Albumin 4.2 g/dL (3.4-4.8); Alkaline Phosphatase 398 U/L (40-110); Anion Gap 19 mmol/L (10-20); BUN (Urea Nitrogen) 25 mg/dL (9.8-20.1); Bilirubin, Direct 0.2 mg/dL (0.1-0.3); Bilirubin, Total 0.5 mg/dL (0.2-1.2); Calc. Creatinine Clearance 0 mL/min (70-130); Calcium 10.7 mg/dL (7.8-10.44); Carbon Dioxide 23 mmol/L (23-31); Chloride 105 mmol/L (98-107); Estimated GFR 27; Globulin 3.2 g/dL (2.4-3.5); Glucose 237 mg/dL (83-110); Potassium 3.8 mmol/L (3.5-5.1); Protein, Total 7.4 g/dL (5.8-8.1); Sodium 143 mmol/L (136-145)
== END 2022-07-21 15:51 | disposition home or self-care (01) ==
LOC: LABBT 15:50
PROVIDERS: ATTEND Surgery
DX: Z01.818 Encounter for other preprocedural examination (principal); K80.20 Calculus of gallbladder without cholecystitis without obstruction
CPT/HCPCS: 80053; 80076; 85025; 93005; 93010

== ENCOUNTER 2022-07-30 05:53 | Day surgery (SDC) | payer MEDICARE ==
[2022-07-29 08:46] VITALS: BMI 25.0
[2022-07-30] MEDS ORDERED: Fentanyl 250 MCG/5 ML VIAL ONE (06:41)
[2022-07-30] MEDS ORDERED: Lidocaine 2% 6 ML SYR ONE (06:41)
[2022-07-30] MEDS ORDERED: Lidocaine 1% MPF 2 ML VIAL ONE (06:57)
[2022-07-30] MEDS ORDERED: Sodium Chloride 0.9% 100 ML ONE (06:58)
[2022-07-30] MEDS ORDERED: cefOXitin 2 GM VIAL ONE (06:58)
[2022-07-30] MEDS ORDERED: Bupivacaine/Epinephrine 0.25% 30 ML VIAL ONE (07:01)
[2022-07-30] MEDS ORDERED: Iopamidol 30 ML ONE (07:37)
[2022-07-30] MEDS ORDERED: ePHEDrine 50 MG/ML VIAL ONE (07:54)
[2022-07-30] MEDS ORDERED: Rocuronium Bromide 10 MG/ML (10ML VIAL) ONE (07:54)
[2022-07-30] MEDS ORDERED: Ondansetron PF 4 MG/2 ML Vial ONE ×2 (07:54→09:48)
[2022-07-30] MEDS ORDERED: Dexamethasone 20 MG/5 ML VIAL ONE (07:54)
[2022-07-30] MEDS ORDERED: SUGAMMADEX SODIUM 200 MG/2 ML VIAL ONE (08:27)
[2022-07-30] MEDS ORDERED: PACU-Morphine 4MG/ML VIAL SLOW IVP PRN (08:55)
[2022-07-30] MEDS ORDERED: Ondansetron HCl/PF 4 MG/2 ML Vial IVP PRN (08:55)
[2022-07-30] MEDS ORDERED: HYDROcodone/Acetaminophen 5/325 mg Tablet ONE (10:35)
== END 2022-07-30 12:06 | disposition home or self-care (01) ==
LOC: EDBD → SDC 05:53 → EDBD 15:00
PROVIDERS: ATTEND Surgery
PROC: 0FT44ZZ Resection of Gallbladder, Percutaneous Endoscopic Approach (ICD-10-PCS; principal; 2022-07-30)
PROC: BF101ZZ Fluoroscopy of Bile Ducts using Low Osmolar Contrast (ICD-10-PCS; 2022-07-30)
DX: K80.12 Calculus of gallbladder with acute and chronic cholecystitis without obstruction (principal); K83.8 Other specified diseases of biliary tract; K66.0 Peritoneal adhesions (postprocedural) (postinfection); Z87.891 Personal history of nicotine dependence; Z79.02 Long term (current) use of antithrombotics/antiplatelets; Z79.890 Hormone replacement therapy; Z79.899 Other long term (current) drug therapy; Z88.8 Allergy status to other drugs, medicaments and biological substances; Z95.5 Presence of coronary angioplasty implant and graft
CPT/HCPCS: 47532; 47563; C1889 ×2; 88304; J0694; J1100; J2405; J3010; J3490; Q9967

== ENCOUNTER 2025-02-28 07:31 | Outpatient (CLI) | payer MEDICARE ==
[2025-02-28 08:14] LABS: Estimated GFR - POC 31.0
== END 2025-02-28 07:32 | disposition home or self-care (01) ==
LOC: CT 07:31
PROVIDERS: ATTEND Physician Assistant Medical
DX: I65.23 Occlusion and stenosis of bilateral carotid arteries (principal); I65.03 Occlusion and stenosis of bilateral vertebral arteries
CPT/HCPCS: 36415; 70498; 82565